=== PATIENT | male | born 1975 | race Caucasian/White ===

== ENCOUNTER 2020-10-07 16:52 | Inpatient (IN) ==
[2020-10-07] MEDS ORDERED: PIPERACILLIN/TAZOBACTAM 4.5 GM/120 ML BAG IV ONE (17:07)
[2020-10-07] MEDS ORDERED: PIPERACILL/TAZOBAC CONSULT ACTIVE PRN (17:07)
[2020-10-07] MEDS ORDERED: SODIUM CHLORIDE 0.9% 1000ML 1,000 ML IV ONE ×2 (17:07→19:31)
--- NOTE | 2020-10-07 17:16 | Emergency Department Note ---
Impression & Plan Pneumonia, Chest pain, Fever, Abnormal ECG ED Provider Note NAME: CAROL EDWARDS AGE: 45 SEX: M : 1975 ARRIVES VIA: Walk-In INFORMANT: Patient, ED PROVIDER(S): Az Sigala DO CHIEF COMPLAINT: Chest pain HPI: The patient is a 45-year-old male who presented to the emergency department for an evaluation of chest pain and shortness of breath. The patient was seen in our facility yesterday for similar complaints at that time he had a negative D-dimer and a negative COVID-19 swab. His EKG was abnormal so cardiology was consulted. The patient had an echocardiogram which did not show any acute disease. He was felt to be suffering from a possible tickborne illness. He was started on doxycycline after receiving IV Rocephin yesterday. The patient was doing well this morning. His significant other is a nurse and she noticed that throughout the day he started to become worse. He became very confused and started to have difficulty breathing. This is when she brought him back to the emergency department. At this point he does complain of significant shortness of breath and cough. He denies having any abdominal pain but does complain of nausea as well as chest pain. He denies having any lower extremity swelling which is worse than usual. The patient has been compliant with the outpatient medication regimen including the doxycycline. He states that he had a low-grade fever again. His significant other is very concerned because he also appeared somewhat confused. ROS: See above HPI for pertinent positives & negatives. A total of 10 systems reviewed and were otherwise negative. PAST MEDICAL HISTORY: See Below PAST SURGICAL HISTORY: See Below FAMILY HISTORY: See Below SOCIAL HISTORY: See Below HOME MEDICATIONS: See Below ALLERGIES: See Below VITALS: See Below PHYSICAL EXAMINATION: GENERAL: The patient is awake and alert. His affect is somewhat flat but he is appropriate. EYES: The conjunctivae are clear. The pupils are round and reactive. EARS, NOSE, MOUTH AND THROAT: The nose is without any evidence of any deformity. NECK: The neck is nontender and supple. RESPIRATORY: Diminished breath sounds are noted at the left base. There was tachypnea with mild conversational dyspnea appreciated. CARDIOVASCULAR: Regular rate and rhythm noted there no murmurs rubs or gallops normal S1 normal S2. GASTROINTESTINAL: The abdomen is soft. Abdomen is nontender. MUSCULOSKELETAL/EXTREMITIES: There is no evidence of gross deformity full range of motion is noted in the hips and shoulders. SKIN: There is no obvious evidence of any rash. There are no petechiae, pallor or cyanosis noted. No calf tenderness was elicited. NEUROLOGIC: Patient is awake alert and oriented x3. MEDICAL DECISION MAKING: The patient is a 45-year-old male who presented to the emergency department for an evaluation of fever and chest pain. The patient was seen yesterday with similar complaints. He did have an abnormal EKG and at that time had an echocardiogram. His changes on his EKG were not felt to be secondary to a cardiac source but he was scheduled for follow-up with cardiology for further evaluation as well as repeat studies. The patient was started on an oral antibiotic for presumed tickborne illness. At that time his chest x-ray showed no acute disease. He returns emergency department today with his significant other for an evaluation of worsening difficulty breathing chest pain and fever. The patient appears to have a very progressive pneumonia noted in the left lung field. This was confirmed via CT. He was also somewhat confused according to his significant other. He was treated with Tylenol and IV fluids. He was also given IV empiric antibiotics. He was reevaluated multiple times. I discussed the patient's laboratory and radiographic studies with him and his significant other. Ultimately I feel given the patient's presentation today he may require further inpatient management. This reason I will [facility] T[facility] Nursing notes reviewed. Prior medical records reviewed Vital Signs: reviewed and remarkable for tachycardia and fever. Differential diagnosis: Viral syndrome, otitis, pharyngitis, pneumonia, influenza, meningitis, urinary tract infection, sepsis, bacteremia, as well as other pathologies. ER treatment provided: See below Diagnostics interpreted by me: ECG: EKG was obtained in the emergency department. My interpretation is sinus tachycardia at 104 bpm. There is no ectopy. Inferior Q waves with lateral ST depressions and T wave versions were noted. This was compared to a tracing done on October 06, 2020. No significant changes were noted. Cardiac Monitoring: An order was placed for continuous cardiac monitoring. The monitor shows a rate of 110 bpm with sinus tachycardia rhythm. Laboratory studies: As stated above and show below. Imaging studies: See below Consultation(s): 194: I discussed this case with Dr. Coe who is on-call for the [facility] hospitalist group. Past Med/Surg History Medical History Encounter for pre-operative examination Fracture of distal fibula Left ureteral stone Multiple kidney stones Surgical History History of ankle surgery RIGHT ANKLE ORIF History of lithotripsy Family History Other Family history of breast cancer in mother Social History Smoking Status: Never smoker Second Hand Exposure: No; Hx Alcohol Use: No Hx Substance Use: No Preferred Language: Beninese Communication Ability: Effective Weaving Teacher Required: No Beliefs That Will Affect Care: None Current Living Situation: Family Feels Safe at Home: Yes Assistive Devices: Contacts Allergies Allergies Allergy/AdvReac Type Severity Reaction Status Date / Time No Known Allergies Allergy Verified 10/06/20 08:37 Home Meds Home Medications Medication Instructions Recorded Confirmed acetaminophen [Tylenol Extra 1,000 mg PO Q6H PRN 10/06/20 10/06/20 Strength] Previous Rx's Medication Instructions Recorded doxycycline hyclate 100 mg PO BID 14 Days #28 tab 10/06/20 Results & Data (ED) Vital Signs Vital Signs - 24 hr 10/07/20 16:58 10/07/20 17:11 10/07/20 17:15 Temperature Temperature Source Pulse Rate 102 H 104 H Pulse Rate [Finger] 103 H Pulse Rate from SpO2 Sensor 104 H Respiratory Rate 20 26 H Respiratory Effort / Characteristics Non-Labored Non-Labored Respiratory Depth Normal Normal Blood Pressure 139/94 140/97 Blood Pressure [Left Arm] 140/97 Blood Pressure Mean 109 116 Blood Pressure Mean [Left Arm] 111 Blood Pressure Position [Left Arm] Pulse Oximetry 92 92 96 Oxygen Delivery Method Room Air Room Air Nasal Cannula Oxygen Flow Rate 2 Sepsis Recent Fever Within 48 Hours No Sepsis New/Unexplained Change in Mental Status Yes Sepsis Action Taken by Nursing No Action Required 10/07/20 17:21 10/07/20 17:30 10/07/20 17:31 Temperature Temperature Source Pulse Rate 106 H 103 H 105 H Pulse Rate [Finger] 105 H Pulse Rate from SpO2 Sensor 107 H 105 H 103 H Respiratory Rate 18 27 H 20 Respiratory Effort / Characteristics Non-Labored Respiratory Depth Normal Blood Pressure 149/88 H Blood Pressure [Left Arm] 149/88 H Blood Pressure Mean 96 Blood Pressure Mean [Left Arm] 108 Blood Pressure Position [Left Arm] Pulse Oximetry 98 99 99 Oxygen Delivery Method Room Air Oxygen Flow Rate Sepsis Recent Fever Within 48 Hours Sepsis New/Unexplained Change in Mental Status Sepsis Action Taken by Nursing 10/07/20 17:40 10/07/20 17:45 10/07/20 17:50 Temperature Temperature Source Pulse Rate 107 H 105 H 108 H Pulse Rate [Finger] Pulse Rate from SpO2 Sensor 107 H 105 H 110 H Respiratory Rate 28 H 22 27 H Respiratory Effort / Characteristics Respiratory Depth Blood Pressure 142/91 H Blood Pressure [Left Arm] Blood Pressure Mean 106 Blood Pressure Mean [Left Arm] Blood Pressure Position [Left Arm] Pulse Oximetry 98 98 96 Oxygen Delivery Method Oxygen Flow Rate Sepsis Recent Fever Within 48 Hours Sepsis New/Unexplained Change in Mental Status Sepsis Action Taken by Nursing 10/07/20 17:55 10/07/20 17:56 10/07/20 18:00 Temperature Temperature Source Pulse Rate 105 H 102 H Pulse Rate [Finger] 111 H Pulse Rate from SpO2 Sensor 106 H 102 H Respiratory Rate 19 24 20 Respiratory Effort / Characteristics Non-Labored Respiratory Depth Normal Blood Pressure 136/99 148/93 H Blood Pressure [Left Arm] 136/99 Blood Pressure Mean 109 114 Blood Pressure Mean [Left Arm] 111 Blood Pressure Position [Left Arm] Pulse Oximetry 98 99 98 Oxygen Delivery Method Nasal Cannula Oxygen Flow Rate 2 Sepsis Recent Fever Within 48 Hours Sepsis New/Unexplained Change in Mental Status Sepsis Action Taken by Nursing 10/07/20 18:01 10/07/20 18:10 10/07/20 18:15 Temperature Temperature Source Pulse Rate 104 H 103 H 100 H Pulse Rate [Finger] Pulse Rate from SpO2 Sensor 103 H 103 H 101 H Respiratory Rate 26 H 19 17 Respiratory Effort / Characteristics Respiratory Depth Blood Pressure 142/92 H Blood Pressure [Left Arm] Blood Pressure Mean 117 Blood Pressure Mean [Left Arm] Blood Pressure Position [Left Arm] Pulse Oximetry 97 96 97 Oxygen Delivery Method Oxygen Flow Rate Sepsis Recent Fever Within 48 Hours Sepsis New/Unexplained Change in Mental Status Sepsis Action Taken by Nursing 10/07/20 18:20 10/07/20 18:30 10/07/20 18:32 Temperature Temperature Source Pulse Rate 106 H 103 H 105 H Pulse Rate [Finger] 105 H Pulse Rate from SpO2 Sensor 106 H 103 H 103 H Respiratory Rate 22 19 18 Respiratory Effort / Characteristics Respiratory Depth Blood Pressure 143/97 H 134/85 Blood Pressure [Left Arm] 142/92 H Blood Pressure Mean 119 112 Blood Pressure Mean [Left Arm] 108 Blood Pressure Position [Left Arm] Pulse Oximetry 98 95 97 Oxygen Delivery Method Nasal Cannula Oxygen Flow Rate 2 Sepsis Recent Fever Within 48 Hours Sepsis New/Unexplained Change in Mental Status Sepsis Action Taken by Nursing 10/07/20 18:40 10/07/20 18:45 10/07/20 18:50 Temperature Temperature Source Pulse Rate 106 H 112 H 107 H Pulse Rate [Finger] Pulse Rate from SpO2 Sensor 105 H 111 H 107 H Respiratory Rate 19 21 26 H Respiratory Effort / Characteristics Respiratory Depth Blood Pressure 131/91 Blood Pressure [Left Arm] Blood Pressure Mean 103 Blood Pressure Mean [Left Arm] Blood Pressure Position [Left Arm] Pulse Oximetry 97 97 94 Oxygen Delivery Method Oxygen Flow Rate Sepsis Recent Fever Within 48 Hours Sepsis New/Unexplained Change in Mental Status Sepsis Action Taken by Nursing 10/07/20 19:16 10/07/20 19:18 10/07/20 19:20 Temperature Temperature Source Pulse Rate 107 H 105 H 103 H Pulse Rate [Finger] Pulse Rate from SpO2 Sensor 108 H 105 H 102 H Respiratory Rate 20 16 23 Respiratory Effort / Characteristics Respiratory Depth Blood Pressure 114/74 Blood Pressure [Left Arm] Blood Pressure Mean 84 Blood Pressure Mean [Left Arm] Blood Pressure Position [Left Arm] Pulse Oximetry 91 95 96 Oxygen Delivery Method Oxygen Flow Rate Sepsis Recent Fever Within 48 Hours Sepsis New/Unexplained Change in Mental Status Sepsis Action Taken by Nursing 10/07/20 19:22 Temperature 39.0 C H Temperature Source Oral Pulse Rate 106 H Pulse Rate [Finger] 105 H Pulse Rate from SpO2 Sensor Respiratory Rate 23 Respiratory Effort / Characteristics Non-Labored Spontaneous Respiratory Depth Blood Pressure Blood Pressure [Left Arm] 114/74 Blood Pressure Mean Blood Pressure Mean [Left Arm] 87 Blood Pressure Position [Left Arm] Lying Pulse Oximetry 96 Oxygen Delivery Method Room Air Oxygen Flow Rate Sepsis Recent Fever Within 48 Hours Sepsis New/Unexplained Change in Mental Status Sepsis Action Taken by [facility] Medications Current Medication List: was personally reviewed by me Laboratory Data Attestation: I reviewed the patient's lab results. Result diagrams: 10/07/20 17:22 10/07/20 17:03 Lab Results 10/07/20 10/07/20 10/07/20 Range/Units 17:03 17:14 17:14 WBC (4.8-10.8) K/uL RBC (4.7-6.1) M/uL Hgb (14.0-18.0) g/dL Hct (42-52) % MCV (80-100) fL MCH (25-34) pg MCHC (32-36) g/dL RDW Std Deviation (36.4-46.3) fL RDW Coeff of Ezra (11.5-14.5) % Plt Count (130-400) K/uL MPV (7.4-10.4) fL Immature Gran % (Auto) % Neut % (Auto) % Lymph % (Auto) % [place] % (Auto) % Eos % (Auto) % Baso % (Auto) % Neut # (Auto) (1.4-6.5) K/uL Lymph # (Auto) (1.2-3.4) K/uL [place] # (Auto) (0.11-0.59) K/uL Eos # (Auto) (0-0.5) K/uL Baso # (Auto) (0-0.2) K/uL Immature Gran # (Auto) (0.00-0.02) K/uL ESR (0-14) mm/hr PT (9.0-12.0) Seconds INR (0.9-1.1) APTT (21.0-31.0) Seconds PTT Ratio D-Dimer (0-500) ug/L FEU VBG pH (7.36-7.41) VBG pCO2 (38-50) mmHg VBG pO2 mmHg VBG HCO3 mmol/L VBG O2 Saturation % VBG Base Excess mEq/L Barometric Pressure mm/Hg Sodium 138 (136-145) mmol/L Potassium 3.5 (3.5-5.1) mmol/L Chloride 106 (98-107) mmol/L Carbon Dioxide 24 (21-32) mmol/L Anion Gap 8.0 (3-11) BUN 12 (7-18) mg/dl Creatinine 0.93 (0.6-1.4) mg/dl Est Cr Clr Drug Dosing 128.9 ml/min Est GFR ( Amer) 115.3 Est GFR (Non-Af Amer) 99.5 BUN/Creatinine Ratio 12.6 (10-20) Glucose 92 (70-99) mg/dl Lactate (0.4-2.0) mmol/L Calcium 8.8 (8.5-10.1) mg/dl Magnesium 1.8 (1.8-2.4) mg/dl Total Bilirubin 0.5 (0.2-1) mg/dl AST 31 (15-37) U/L ALT 35 (12-78) U/L Alkaline Phosphatase 50 (45-117) U/L Total Creatine Kinase 88 (39-308) U/L CK-MB (CK-2) < 1.0 (0.5-3.6) ng/ml CK/CKMB % Calc TNP Troponin I < 0.015 (0-0.045) ng/ml C-Reactive Protein 8.53 H (0-0.29) mg/dl Total Protein 7.5 (6.4-8.2) gm/dl Albumin 3.3 L (3.4-5.0) gm/dl Globulin 4.2 H (2.5-4.0) gm/dl Albumin/Globulin Ratio 0.8 L (0.9-2) Procalcitonin (0-0.5) ng/ml COVID-19 Eval Order CovFluRsv at [facility] COVID-19 PCR NEGATIVE (Negative) Influenza Type A (PCR) Negative (Neg) Influenza Type B (PCR) Negative (Neg) RSV (RT-PCR) Negative (Neg) 10/07/20 10/07/20 10/07/20 Range/Units 17:22 17:22 17:22 WBC 2.61 L (4.8-10.8) K/uL RBC 4.72 (4.7-6.1) M/uL Hgb 14.8 (14.0-18.0) g/dL Hct 42.8 (42-52) % MCV 90.7 (80-100) fL MCH 31.4 (25-34) pg MCHC 34.6 (32-36) g/dL RDW Std Deviation 41.8 (36.4-46.3) fL RDW Coeff of Ezra 12.5 (11.5-14.5) % Plt Count 165 (130-400) K/uL MPV 10.8 H (7.4-10.4) fL Immature Gran % (Auto) 0.0 % Neut % (Auto) 70.1 % Lymph % (Auto) 23.0 % [place] % (Auto) 6.9 % Eos % (Auto) 0.0 % Baso % (Auto) 0.0 % Neut # (Auto) 1.83 (1.4-6.5) K/uL Lymph # (Auto) 0.60 L (1.2-3.4) K/uL [place] # (Auto) 0.18 (0.11-0.59) K/uL Eos # (Auto) 0.00 (0-0.5) K/uL Baso # (Auto) 0.00 (0-0.2) K/uL Immature Gran # (Auto) 0.00 (0.00-0.02) K/uL ESR (0-14) mm/hr PT 11.6 (9.0-12.0) Seconds INR 1.1 (0.9-1.1) APTT 33.6 H (21.0-31.0) Seconds PTT Ratio 1.2 D-Dimer 440 (0-500) ug/L FEU VBG pH (7.36-7.41) VBG pCO2 (38-50) mmHg VBG pO2 mmHg VBG HCO3 mmol/L VBG O2 Saturation % VBG Base Excess mEq/L Barometric Pressure mm/Hg Sodium (136-145) mmol/L Potassium (3.5-5.1) mmol/L Chloride (98-107) mmol/L Carbon Dioxide (21-32) mmol/L Anion Gap (3-11) BUN (7-18) mg/dl Creatinine (0.6-1.4) mg/dl Est Cr Clr Drug Dosing ml/min Est GFR ( Amer) Est GFR (Non-Af Amer) BUN/Creatinine Ratio (10-20) Glucose (70-99) mg/dl Lactate 1.2 (0.4-2.0) mmol/L Calcium (8.5-10.1) mg/dl Magnesium (1.8-2.4) mg/dl Total Bilirubin (0.2-1) mg/dl AST (15-37) U/L ALT (12-78) U/L Alkaline Phosphatase (45-117) U/L Total Creatine Kinase (39-308) U/L CK-MB (CK-2) (0.5-3.6) ng/ml CK/CKMB % Calc Troponin I (0-0.045) ng/ml C-Reactive Protein (0-0.29) mg/dl Total Protein (6.4-8.2) gm/dl Albumin (3.4-5.0) gm/dl Globulin (2.5-4.0) gm/dl Albumin/Globulin Ratio (0.9-2) Procalcitonin (0-0.5) ng/ml COVID-19 Eval Order COVID-19 PCR (Negative) Influenza Type A (PCR) (Neg) Influenza Type B (PCR) (Neg) RSV (RT-PCR) (Neg) 10/07/20 10/07/20 10/07/20 Range/Units 17:22 17:22 17:22 WBC (4.8-10.8) K/uL RBC (4.7-6.1) M/uL Hgb (14.0-18.0) g/dL Hct (42-52) % MCV (80-100) fL MCH (25-34) pg MCHC (32-36) g/dL RDW Std Deviation (36.4-46.3) fL RDW Coeff of Ezra (11.5-14.5) % Plt Count (130-400) K/uL MPV (7.4-10.4) fL Immature Gran % (Auto) % Neut % (Auto) % Lymph % (Auto) % [place] % (Auto) % Eos % (Auto) % Baso % (Auto) % Neut # (Auto) (1.4-6.5) K/uL Lymph # (Auto) (1.2-3.4) K/uL [place] # (Auto) (0.11-0.59) K/uL Eos # (Auto) (0-0.5) K/uL Baso # (Auto) (0-0.2) K/uL Immature Gran # (Auto) (0.00-0.02) K/uL ESR 27 H (0-14) mm/hr PT (9.0-12.0) Seconds INR (0.9-1.1) APTT (21.0-31.0) Seconds PTT Ratio D-Dimer (0-500) ug/L FEU VBG pH 7.45 H (7.36-7.41) VBG pCO2 35 L (38-50) mmHg VBG pO2 30 mmHg VBG HCO3 23 mmol/L VBG O2 Saturation < 60.0 % VBG Base Excess -0.2 mEq/L Barometric Pressure 739.2 mm/Hg Sodium (136-145) mmol/L Potassium (3.5-5.1) mmol/L Chloride (98-107) mmol/L Carbon Dioxide (21-32) mmol/L Anion Gap (3-11) BUN (7-18) mg/dl Creatinine (0.6-1.4) mg/dl Est Cr Clr Drug Dosing ml/min Est GFR ( Amer) Est GFR (Non-Af Amer) BUN/Creatinine Ratio (10-20) Glucose (70-99) mg/dl Lactate (0.4-2.0) mmol/L Calcium (8.5-10.1) mg/dl Magnesium (1.8-2.4) mg/dl Total Bilirubin (0.2-1) mg/dl AST (15-37) U/L ALT (12-78) U/L Alkaline Phosphatase (45-117) U/L Total Creatine Kinase (39-308) U/L CK-MB (CK-2) (0.5-3.6) ng/ml CK/CKMB % Calc Troponin I (0-0.045) ng/ml C-Reactive Protein (0-0.29) mg/dl Total Protein (6.4-8.2) gm/dl Albumin (3.4-5.0) gm/dl Globulin (2.5-4.0) gm/dl Albumin/Globulin Ratio (0.9-2) Procalcitonin 0.21 (0-0.5) ng/ml COVID-19 Eval Order COVID-19 PCR (Negative) Influenza Type A (PCR) (Neg) Influenza Type B (PCR) (Neg) RSV (RT-PCR) (Neg) Administered Medications Discontinued Medications Acetaminophen (Acetaminophen 500 Mg Tab) 1,000 mg PO NOW STA Stop: 10/07/20 18:57 Last Admin: 10/07/20 19:19 Dose: 1,000 mg Documented by: [id number] Sodium Chloride (Nss 1000ml) 1,000 mls @ 999 mls/hr IV .Q1H1M ONE Stop: 10/07/20 18:07 Last Infusion: 10/07/20 18:28 Dose: 0 mls/hr Documented by: [id number] Admin: 10/07/20 17:21 Dose: 999 mls/hr Documented by: [id number] Piperacillin Sod/Tazobactam Sod (Zosyn) 4.5 gm in 120 mls @ 240 mls/hr IV NOW ONE Stop: 10/07/20 17:36 Last Infusion: 10/07/20 17:50 Dose: 0 mls/hr Documented by: [id number] Admin: 10/07/20 17:20 Dose: 240 mls/hr Documented by: [id number] Ioversol (Optiray 320 125ml) 117 ml IV ONCE ONE Stop: 10/07/20 19:06 Last Admin: 10/07/20 19:06 Dose: 117 ml Documented by: [id number] Ondansetron HCl (Ondansetron Inj 2 Mg/Ml 2 Ml Vial) 4 mg IV NOW STA Stop: 10/07/20 18:57 Last Admin: 10/07/20 19:19 Dose: 4 mg Documented by: [id number] Imaging Data Radiologist's Impression: Patient: CAROL EDWARDS Admit Date: 10/07/20 MR#: [id number] Address1: [address] [place] [address] Acct ID:[id number] Address2: Date: 1975 [facility] Zip: [place] [address] Age: 45 Location: ED Sex: M Room/Bed: Att Phy: Diagnosis: CHEST PAIN, CARDIAC SYMPTOMS Alcira Phy: Ruiz Monreal DO Service Date: 10/07/20 [facility] Phy: Interpreting Phy: Philippe Ugarte MD Admit Phy: Ordering Phy: Az Sigala DO cc: ~ CT SCAN OF THE BRAIN WITHOUT IV CONTRAST CLINICAL HISTORY: Change in mental status. COMPARISON STUDY: No priors. TECHNIQUE: Unenhanced axial CT scan of the brain is performed from the vertex to the skull base. A dose lowering technique was utilized adhering to the principles of ALARA. FINDINGS: Brain parenchyma: The brain parenchyma is normal in appearance. There is no hem orrhage, mass effect, or evidence of acute territorial ischemia by CT criteria. Pham-white matter differentiation is preserved. No extra-axial fluid collection is seen. Ventricles, sulci, cisterns: Normal in configuration. Megacisterna magna is incidentally noted. Intracranial vasculature: Mild mucosal thickening is seen in the left maxillary antrum. Trace mucosal thickening is noted in the left frontal sinus. The remaining visualized intracranial vasculature at the skull base is normal in [place]id [place]. Calvarium: Unremarkable. Sinuses and mastoids: The visualized paranasal sinuses are clear. The mastoid air cells are well pneumatized. Orbits: The bony orbits are grossly intact. IMPRESSION: No acute intracranial abnormality. ACT 112: Negative or not required by law. Electronically signed by: Philippe Ugarte M.D. 10/07/2020 7:18 PM Dictated: 10/07/201915 Transcribed: 10/07/201915 Patient: CAROL EDWARDS Admit Date: 10/07/20 MR#: [id number] Address1: [address] [place] [address] Acct ID:[id number] Address2: Date: 1975 [facility] Zip: [place] [address] Age: 45 Location: ED Sex: M Room/Bed: Att Phy: Diagnosis: CHEST PAIN, CARDIAC SYMPTOMS Alcira Phy: Ruiz Monreal DO Service Date: 10/07/20 [facility] Phy: Interpreting Phy: Philippe Ugarte MD Admit Phy: Ordering Phy: Az Sigala DO cc: ~ CT ANGIOGRAM OF THE CHEST CLINICAL HISTORY: Dyspnea. COMPARISON STUDY: Chest x-ray dated 10/07/2020. TECHNIQUE: Following the IV administration of 117 cc of Optiray 320, CT angiogram of the chest was performed from the upper abdomen to the thoracic inlet utilizing the pulmonary embolus protocol. Images are reviewed in the axial, sagittal, and coronal planes. 3-D MIPS images are created and assessed. IV contrast was administered without complication. A dose lowering technique was utilized adhering to the principles of ALARA. CT DOSE: 1359.71 mGy.cm FINDINGS: Thyroid: Imaged portions of the thyroid gland are normal in size and attenuation. Thoracic aorta: The thoracic aorta is normal in caliber and demonstrates standard 3-vessel arch anatomy. No dissection is seen. Pulmonary vasculature: The pulmonary trunk is normal in caliber. There are no f illing defects identified in main, lobar, or proximal segmental pulmonary branches to suggest pulmonary embolus. Evaluation of the peripheral branches is significantly compromised by motion artifact. Heart: The heart is top normal in size/borderline enlarged and without pericardial effusion. Lungs and pleural spaces: Evaluation of the lung parenchyma is degraded by motion artifact. Dense airspace consolidation is seen throughout the left lower lobe. There is trace left pleural effusion. The trachea and central airways are clear. There are numerous calcified granulomas seen throughout both lungs. Mediastinum: There are numerous mildly enlarged mediastinal lymph nodes. AP window nodes measure up to 11 mm short axis. A precarinal node measures 11 mm in short axis. Debbie: There are mildly enlarged left hilar nodes which measure up to 9 mm in short axis. Axillae: There is no axillary lymphadenopathy. Upper abdomen: There is a small hiatal hernia. The liver is steatotic. The spleen is enlarged measuring 14.9 cm in length. Skeletal structures: No lytic or blastic bony lesions are seen. IMPRESSION: 1. Motion compromised examination. 2. There is no evidence of central pulmonary embolus in the main, lobar, or proximal segmental pulmonary arteries. 3. Dense airspace consolidation is seen throughout the left lower lobe. This is typical for pneumonia and radiographic follow-up to resolution is recommended. Follow-up examinations should include both PA and lateral views. 3. Trace left pleural effusion. 4. Hepatic steatosis. 5. Mild splenomegaly. 6. Mildly enlarged mediastinal and left hilar lymph nodes are likely on a reactive basis. ACT 112: Negative or not required by law. Electronically signed by: Philippe Ugarte M.D. 10/07/2020 7:26 PM Dictated: 10/07/201919 Transcribed: 10/07/201919 Patient: CAROL EDWARDS Admit Date: 10/07/20 MR#: [id number] Address1: [address] [facility] Acct ID:[id number] Address2: Date: 1975 [facility] Zip: [place] [address] Age: 45 Location: ED Sex: M Room/Bed: Att Phy: Diagnosis: CHEST PAIN, CARDIAC SYMPTOMS Alcira Phy: Ruiz Monreal DO Service Date: 10/07/20 Fam Phy: Interpreting Phy: Philippe Ugarte MD Admit Phy: Ordering Phy: Az Sigala DO cc: ~ SINGLE VIEW CHEST CLINICAL HISTORY: Sepsis. FINDINGS: An AP, portable, upright chest radiograph is compared to study dated 10/06/2020. The cardiomediastinal silhouette is unremarkable. Question subtle bilateral interstitial airspace opacities. No lobar consolidation or large pleural effusion is identified. No pneumothorax is seen. The bony thorax is grossly intact. IMPRESSION: Question subtle bilateral interstitial airspace opacities which are new from yesterday. Correlate clinically for evidence of a mild infectious/inflammatory pneumonitis. ACT 112: Negative or not required by law. Electronically signed by: Philippe Ugarte M.D. 10/07/2020 6:21 PM Dictated: 10/07/201733 Transcribed: 10/07/201736 Blood Pressure Blood Pressure Findings: Normal blood pressure Discharge Plan Visit Data Chief Complaint: Cardiac Assessment Stated Complaint: CHEST PAIN, CARDIAC SYMPTOMS ED Provider: Az Sigala Discharge Problem: Pneumonia, Chest pain, Fever, Abnormal ECG Patient Disposition: Being Evaluated by Hospitalist Condition: Good Forms Stand Alone Forms: [facility] [employer] Prescriptions Prescriptions: No Action acetaminophen [Tylenol Extra Strength] 500 mg Tablet 1,000 mg PO Q6H PRN (Reason: Pain) RF: 0 doxycycline hyclate 100 mg tablet 100 mg PO BID 14 Days Qty: 28 RF: 0 Referrals Referrals: Ruiz Monreal DO [Primary Care Provider] - Discharge Problem: Pneumonia Qualifiers: Pneumonia type: due to unspecified organism Laterality: left Lung location: uns pecified part of lung Qualified Code(s): J18.9 - Pneumonia, unspecified organism Chest pain Qualifiers: Chest pain type: unspecified Qualified Code(s): R07.9 - Chest pain, unspecified Fever Qualifiers: Fever type: unspecified Qualified Code(s): R50.9 - Fever, unspecified
[2020-10-07 17:29] LABS: Hematocrit (blood only) 42.8 % (42-52); Hemoglobin 14.8 g/dL (14.0-18.0); Mean Corpuscular Hemoglobin 31.4 pg (25-34); Mean Corpuscular Hgb Conc 34.6 g/dL (32-36); Mean Corpuscular Volume 90.7 fL (80-100); Mean Platelet Volume 10.8 fL (7.4-10.4); Monocytes # (auto) 0.18 K/uL (0.11-0.59); Monocytes % (auto) 6.9 %; Neutrophils # (auto) 1.83 K/uL (1.4-6.5); Neutrophils % (auto) 70.1 %; Platelet Count 165 K/uL (130-400); RDW Coefficient of Variation 12.5 % (11.5-14.5); RDW Standard Deviation 41.8 fL (36.4-46.3); Red Blood Count 4.72 M/uL (4.7-6.1); White Blood Count 2.61 K/uL (4.8-10.8)
[2020-10-07 17:38] LABS: Base Excess VBG -0.2 mEq/L; HCO3 VBG 23 mmol/L; Oxygen Saturation VBG < 60.0 %; PCO2 VBG 35 mmHg (38-50); PO2 VBG 30 mmHg; pH VBG 7.45 (7.36-7.41)
[2020-10-07 17:41] LABS: D Dimer 440 ug/L FEU (0-500); INR 1.1 (0.9-1.1); Partial Thromboplastin Ratio 1.2; Partial Thromboplastin Time 33.6 Seconds (21.0-31.0); Prothrombin Time 11.6 Seconds (9.0-12.0)
[2020-10-07 17:46] LABS: Alanine Aminotransferase 35 U/L (12-78); Albumin Level 3.3 gm/dl (3.4-5.0); Aspartate Aminotransferase 31 U/L (15-37); BUN Creatinine Ratio 12.6 (10-20); Blood Urea Nitrogen 12 mg/dl (7-18); C Reactive Protein 8.53 mg/dl (0-0.29); Calcium 8.8 mg/dl (8.5-10.1); Carbon Dioxide 24 mmol/L (21-32); Chloride 106 mmol/L (98-107); Creatinine Clr Calc Pharmacy 128.9 ml/min; Est GFR (African American) 115.3; Est GFR (Non-African American) 99.5; Glucose 92 mg/dl (70-99); Magnesium 1.8 mg/dl (1.8-2.4); Potassium 3.5 mmol/L (3.5-5.1); Sodium 138 mmol/L (136-145)
[2020-10-07 17:49] LABS: Albumin Globulin Ratio 0.8 (0.9-2); Alkaline Phosphatase 50 U/L (45-117); Bilirubin,Total 0.5 mg/dl (0.2-1); Creatine Kinase 88 U/L (39-308); Creatine Kinase MB < 1.0 ng/ml (0.5-3.6); Globulin 4.2 gm/dl (2.5-4.0); Total Protein 7.5 gm/dl (6.4-8.2); Troponin I < 0.015 ng/ml (0-0.045)
[2020-10-07 18:02] LABS: Influenza A virus by PCR Negative (Neg); Influenza B virus by PCR Negative (Neg); RSV by PCR Negative (Neg); SARS CoV2 RNA(COVID-19) InHosp NEGATIVE (Negative)
--- NOTE | 2020-10-07 18:22 | XRay Report ---
SINGLE VIEW CHEST CLINICAL HISTORY: Sepsis. FINDINGS: An AP, portable, upright chest radiograph is compared to study dated 10/06/2020. The cardio mediastinal silhouette is unremarkable. Question subtle bilateral interstitial airspace opacities. No lobar consolidation or large pleural effusion is identified. No pneumothorax is seen. The bony thora x is grossly intact. IMPRESSION: Question subtle bilateral interstitial airspace opacities which are new from yesterday. C orrelate clinically for evidence of a mild infectious/inflammatory pneumonitis. ACT 112: Negative or not required by law. Electronically signed by: Philippe Ugarte M.D. 10/07/2020 6:21 PM
[2020-10-07] MEDS ORDERED: ACETAMINOPHEN 500 MG TAB PO STA (18:56)
[2020-10-07] MEDS ORDERED: ONDANSETRON INJ 2 MG/ML 2 ML VIAL IV STA (18:56)
[2020-10-07] MEDS ORDERED: OPTIRAY 320 125ml IV ONE (19:05)
--- NOTE | 2020-10-07 19:19 | CT Scan Report ---
CT SCAN OF THE BRAIN WITHOUT IV CONTRAST CLINICAL HISTORY: Change in mental status. COMPARISON STUDY: No priors. TECHNIQUE: Unenhanced axial CT scan of the brain is performed from the vertex to the skull base. A d ose lowering technique was utilized adhering to the principles of ALARA. FINDINGS: Brain parenchyma: The brain parenchyma is normal in appearance. There is no hemorrhage, mass effect, or evidence of acute territorial ischemia by CT criteria. Pham-white matter differentiation is preser susi. No extra-axial fluid collection is seen. Ventricles, sulci, cisterns: Normal in configuration. Megacisterna magna is incidentally noted. Intracranial vasculature: Mild mucosal thickening is seen in the left maxillary antrum. Trace mucosal thickening is noted in the left frontal sinus. The remaining visualized intracranial vasculature at the skull base is normal in appearance. Calvarium: Unremarkable. Sinuses and mastoids: The visualized paranasal sinuses are clear. The mastoid air cells are well pneu matized. Orbits: The bony orbits are grossly intact. IMPRESSION: No acute intracranial abnormality. ACT 112: Negative or not required by law. Electronically signed by: Philippe Ugarte M.D. 10/07/2020 7:18 PM
--- NOTE | 2020-10-07 19:28 | CT Scan Report ---
CT ANGIOGRAM OF THE CHEST CLINICAL HISTORY: Dyspnea. COMPARISON STUDY: Chest x-ray dated 10/07/2020. TECHNIQUE: Following the IV administration of 117 cc of Optiray 320, CT angiogram of the chest was pe rformed from the upper abdomen to the thoracic inlet utilizing the pulmonary embolus protocol. Images are reviewed in the axial, sagittal, and coronal planes. 3-D MIPS images are created and assessed. I V contrast was administered without complication. A dose lowering technique was utilized adhering to the principles of ALARA. CT DOSE: 1359.71 mGy.cm FINDINGS: Thyroid: Imaged portions of the thyroid gland are normal in size and attenuation. Thoracic aorta: The thoracic aorta is normal in caliber and demonstrates standard 3-vessel arch anato my. No dissection is seen. Pulmonary vasculature: The pulmonary trunk is normal in caliber. There are no filling defects identif ied in main, lobar, or proximal segmental pulmonary branches to suggest pulmonary embolus. Evaluation of the peripheral branches is significantly compromised by motion artifact. Heart: The heart is top normal in size/borderline enlarged and without pericardial effusion. Lungs and pleural spaces: Evaluation of the lung parenchyma is degraded by motion artifact. Dense air space consolidation is seen throughout the left lower lobe. There is trace left pleural effusion. The trachea and central airways are clear. There are numerous calcified granulomas seen throughout both lungs. Mediastinum: There are numerous mildly enlarged mediastinal lymph nodes. AP window nodes measure up t o 11 mm short axis. A precarinal node measures 11 mm in short axis. Debbie: There are mildly enlarged left hilar nodes which measure up to 9 mm in short axis. Axillae: There is no axillary lymphadenopathy. Upper abdomen: There is a small hiatal hernia. The liver is steatotic. The spleen is enlarged measuri ng 14.9 cm in length. Skeletal structures: No lytic or blastic bony lesions are seen. IMPRESSION: 1. Motion compromised examination. 2. There is no evidence of central pulmonary embolus in the main, lobar, or proximal segmental pulmon mireille arteries. 3. Dense airspace consolidation is seen throughout the left lower lobe. This is typical for pneumonia and radiographic follow-up to resolution is recommended. Follow-up examinations should include both PA and lateral views. 3. Trace left pleural effusion. 4. Hepatic steatosis. 5. Mild splenomegaly. 6. Mildly enlarged mediastinal and left hilar lymph nodes are likely on a reactive basis. ACT 112: Negative or not required by law. Electronically signed by: Philippe Ugarte M.D. 10/07/2020 7:26 PM
[2020-10-07] MEDS ORDERED: XOPENEX/ATROVENT 1.25mg/0.5MG NEB COMBO NEB STA (19:45)
[2020-10-07] MEDS ORDERED: MAGNESIUM SULFATE / D5W 1 GM/100 ML BAG IV ONE (20:00)
[2020-10-07] MEDS ORDERED: IPRATROPIUM BROMIDE NEB SOLN 0.02% 2.5 ML VIAL INH STA (20:04)
[2020-10-07] MEDS ORDERED: LEVALBUTEROL 1.25MG/0.5ML NEB INH STA (20:04)
[2020-10-07] MEDS ORDERED: KETOROLAC TROMETHAMINE 15 MG/ML VIAL IV ONE (21:02)
[2020-10-07 22:03] LABS: Appearance Urine Clear (Clear); Bacteria Urine Automated Negative (Negative); Bilirubin Urine Negative (Negative); Blood Urine Negative (Negative); Color Urine Yellow; Glucose Urine UA Negative (Negative); Ketones Urine 4+ (Negative); Leukocyte Esterase Urine Negative (Negative); Nitrite Urine Negative (Negative); Protein Urine 1+ (Negative); RBC Urine Automated 0-4 /hpf (0-4); Specific Gravity Urine > 1.045 (1.000-1.030); Urobilinogen Urine Negative (Negative)
--- NOTE | 2020-10-07 22:03 | History & Physical Report ---
Date of Service October 07, 2020 Assessment & Plan (1) Sepsis: Secondary to community-acquired pneumonia Ongoing doxycycline Rx for presumptive tickborne illness Multiple sclerosis, stable on Rebif hepatic steatosis, splenomegaly (present on outpatient abdominal ultrasound, possible NAFLD as per outpatient GI note from 2007) Medical telemetry Cultures, add Ceftriaxone to Doxycycline DVT prophylaxis. Lovenox subcu Full code Patient's requesting updates from providers. Ms. Alessandra Kilpatrick, contact #[phone]. Text document was generated using [employer] voice recognition software. It may contain grammatical or spelling errors. Kindly contact undersigned for clarification of any documentation item in question. History of Present Illness Chief Complaint: chest pain, shortness of breath Primary Care Provider: Dr. Santo History obtained from patient, family, and records. Medical history significant for multiple sclerosis on Rebif therapy. 1 week history of fever, fatigue, headache and body ache symptoms. 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 Achy chest pain about 3 days ago. Poor appetite. Patient worried about tick exposure due to hunting activities although no recollection of recent tick bites. Patient patient consulted ER yesterday. Normal chest x-ray and ST abnormalities on EKG noted. COVID-19 and Lyme screen testing negative. Normal echocardiogram done at the ER. Patient also evaluated by cardiology at the ER. Patient discharged on doxycycline course for presumptive tickborne illness. This afternoon, patient noted junky cough symptoms followed by worsening pleuritic left-sided chest pain and shortness of breath, nausea, emesis, fever, chills. Patient a little confused at home as per . No diarrhea. At the ER, patient received Zosyn for sepsis. 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 Allergies Allergy/AdvReac Type Severity Reaction Status Date / Time No Known Allergies Allergy Verified 10/07/20 20:02 Home Medications Medication Instructions Recorded Confirmed Type acetaminophen [Tylenol Extra 1,000 mg PO Q6H PRN 10/06/20 10/07/20 History Strength] doxycycline hyclate 100 mg PO BID 14 Days #28 tab 10/06/20 10/07/20 Rx aspirin [Aspirin Low Dose] 81 mg PO QAM 10/07/20 10/07/20 History interferon beta-1a (albumin) 0.5 ml SUBCUT 3XWK 10/07/20 10/07/20 History [Rebif (with albumin)] Past Med/Surg History Medical History Encounter for pre-operative examination Fracture of distal fibula Left ureteral stone Multiple kidney stones Surgical History History of ankle surgery RIGHT ANKLE ORIF History of lithotripsy Family History Other Family history of breast cancer in mother Social History Smoking Status: Never smoker Second Hand Exposure: No; Hx Alcohol Use: No Hx Substance Use: No Preferred Language: Luxembourger Communication Ability: Effective Bisque Grader Required: No Beliefs That Will Affect Care: None Current Living Situation: Spouse and Family Other Information That Helps Us Care for You: No Feels Safe at Home: Yes Safety Concerns: Feels Safe At This Time Assistive Devices: None Review of Systems Review of Systems: As per HPI, all 10 systems reviewed, all other ROS negative Physical Exam Physical Exam: GENERAL: Slightly uncomfortable, no respiratory distress SKIN: Normal color, warm HEENT: [place] palpebral conjunctivae, no ptosis, dry buccal mucosa NECK : Supple, no tenderness CHEST : Crackles on the left lower lung field, no tenderness HEART : Tachycardic, no obvious murmurs ABDOMEN: Some distention, nontender EXTREMITIES : No LE swelling/tenderness, no other conspicuous deformities noted NEUROLOGIC : Coherent, no facial asymmetry, no other gross focality Results & Data Results & Data ([facility]) Vital Signs (Past 12 Hours) Vital Signs Temp Pulse Pulse Resp BP BP Pulse Ox 10/07/20 21:30 105 H 14 129/81 92 10/07/20 21:00 38.8 C H 108 H 18 135/76 92 10/07/20 20:16 100 H 18 92 10/07/20 20:11 105 H 18 153/97 H 91 10/07/20 19:22 39.0 C H 106 H 105 H 23 114/74 96 10/07/20 19:20 103 H 23 96 10/07/20 19:18 105 H 16 114/74 95 10/07/20 19:16 107 H 20 91 10/07/20 18:50 107 H 26 H 94 10/07/20 18:45 112 H 21 131/91 97 10/07/20 18:40 106 H 19 97 10/07/20 18:32 105 H 18 134/85 97 10/07/20 18:30 103 H 19 143/97 H 95 10/07/20 18:20 106 H 105 H 22 142/92 H 98 10/07/20 18:15 100 H 17 142/92 H 97 10/07/20 18:10 103 H 19 96 10/07/20 18:01 104 H 26 H 97 10/07/20 18:00 102 H 20 148/93 H 98 10/07/20 17:56 111 H 24 136/99 99 10/07/20 17:55 105 H 19 136/99 98 10/07/20 17:50 108 H 27 H 96 10/07/20 17:45 105 H 22 142/91 H 98 10/07/20 17:40 107 H 28 H 98 10/07/20 17:31 105 H 105 H 20 149/88 H 99 10/07/20 17:30 103 H 27 H 149/88 H 99 10/07/20 17:21 106 H 18 98 10/07/20 17:15 104 H 103 H 26 H 140/97 140/97 96 10/07/20 17:11 92 10/07/20 16:58 102 H 20 139/94 92 Laboratory Results Laboratory Results WBC 2.61 K/uL (4.8-10.8) L 10/07/20 17:22 RBC 4.72 M/uL (4.7-6.1) 10/07/20 17:22 Hgb 14.8 g/dL (14.0-18.0) 10/07/20 17:22 Hct 42.8 % (42-52) 10/07/20 17:22 MCV 90.7 fL (80-100) 10/07/20 17:22 MCH 31.4 pg (25-34) 10/07/20 17:22 MCHC 34.6 g/dL (32-36) 10/07/20 17:22 RDW Std Deviation 41.8 fL (36.4-46.3) 10/07/20 17:22 RDW Coeff of Ezra 12.5 % (11.5-14.5) 10/07/20 17: Plt Count 165 K/uL (130-400) 10/07/20 17:22 MPV 10.8 fL (7.4-10.4) H 10/07/20 17:22 Immature Gran % (Auto) 0.0 % 10/07/20 17: Neut % (Auto) 70.1 % 10/07/20 17:22 Lymph % (Auto) 23.0 % 10/07/20 17:22 [place] % (Auto) 6.9 % 10/07/20 17: Eos % (Auto) 0.0 % 10/07/20 17: Baso % (Auto) 0.0 % 10/07/20 17: Neut # (Auto) 1.83 K/uL (1.4-6.5) 10/07/20 17:22 Lymph # (Auto) 0.60 K/uL (1.2-3.4) L 10/07/20 17:22 [place] # (Auto) 0.18 K/uL (0.11-0.59) 10/07/20 17:22 Eos # (Auto) 0.00 K/uL (0-0.5) 10/07/20 17:22 Baso # (Auto) 0.00 K/uL (0-0.2) 10/07/20 17: Immature Gran # (Auto) 0.00 K/uL (0.00-0.02) 10/07/20 17: ESR 27 mm/hr (0-14) H 10/07/20 17:22 PT 11.6 Seconds (9.0-12.0) 10/07/20 17: INR 1.1 (0.9-1.1) 10/07/20 17: APTT 33.6 Seconds (21.0-31.0) H 10/07/20 17:22 PTT Ratio 1.2 10/07/20 17: D-Dimer 440 ug/L FEU (0-500) 10/07/20 17: VBG pH 7.45 (7.36-7.41) H 10/07/20 17:22 VBG pCO2 35 mmHg (38-50) L 10/07/20 17:22 VBG pO2 30 mmHg 10/07/20 17:22 VBG HCO3 23 mmol/L 10/07/20 17:22 VBG O2 Saturation < 60.0 % 10/07/20 17:22 VBG Base Excess -0.2 mEq/L 10/07/20 17:22 Barometric Pressure 739.2 mm/Hg 10/07/20 17:22 Sodium 138 mmol/L (136-145) 10/07/20 17:03 Potassium 3.5 mmol/L (3.5-5.1) 10/07/20 17:03 Chloride 106 mmol/L (98-107) 10/07/20 17:03 Carbon Dioxide 24 mmol/L (21-32) 10/07/20 17:03 Anion Gap 8.0 (3-11) 10/07/20 17:03 BUN 12 mg/dl (7-18) 10/07/20 17:03 Creatinine 0.93 mg/dl (0.6-1.4) 10/07/20 17:03 Est Cr Clr Drug Dosing 128.9 ml/min 10/07/20 17:03 Est GFR ( Amer) 115.3 10/07/20 17:03 Est GFR (Non-Af Amer) 99.5 10/07/20 17:03 BUN/Creatinine Ratio 12.6 (10-20) 10/07/20 17:03 Glucose 92 mg/dl (70-99) 10/07/20 17:03 Lactate 1.2 mmol/L (0.4-2.0) 10/07/20 17:22 Calcium 8.8 mg/dl (8.5-10.1) 10/07/20 17:03 Magnesium 1.8 mg/dl (1.8-2.4) 10/07/20 17:03 Total Bilirubin 0.5 mg/dl (0.2-1) 10/07/20 17:03 AST 31 U/L (15-37) 10/07/20 17:03 ALT 35 U/L (12-78) 10/07/20 17:03 Alkaline Phosphatase 50 U/L (45-117) 10/07/20 17:03 Total Creatine Kinase 88 U/L (39-308) 10/07/20 17:03 CK-MB (CK-2) < 1.0 ng/ml (0.5-3.6) 10/07/20 17:03 CK/CKMB % Calc TNP 10/07/20 17:03 Troponin I < 0.015 ng/ml (0-0.045) 10/07/20 17:03 C-Reactive Protein 8.53 mg/dl (0-0.29) H 10/07/20 17:03 Total Protein 7.5 gm/dl (6.4-8.2) 10/07/20 17:03 Albumin 3.3 gm/dl (3.4-5.0) L 10/07/20 17:03 Globulin 4.2 gm/dl (2.5-4.0) H 10/07/20 17:03 Albumin/Globulin Ratio 0.8 (0.9-2) L 10/07/20 17:03 Procalcitonin 0.21 ng/ml (0-0.5) 10/07/20 17:22 Nasal Screen MRSA (PCR) Negative (Negative) 10/07/20 20:10 COVID-19 Eval Order CovFluRsv at [facility] 10/07/20 17:14 COVID-19 PCR NEGATIVE (Negative) 10/07/20 17:14 Influenza Type A (PCR) Negative (Neg) 10/07/20 17:14 Influenza Type B (PCR) Negative (Neg) 10/07/20 17:14 RSV (RT-PCR) Negative (Neg) 10/07/20 17:[address] chest: 1. Motion compromised examination. 2. There is no evidence of central pulmonary embolus in the main, lobar, or proximal segmental pulmonary arteries. 3. Dense airspace consolidation is seen throughout the left lower lobe. This is typical for pneumonia and radiographic follow-up to resolution is recommended. Follow-up examinations should include both PA and lateral views. 3. Trace left pleural effusion. 4. Hepatic steatosis. 5. Mild splenomegaly. 6. Mildly enlarged mediastinal and left hilar lymph nodes are likely on a reactive basis. CT head: No acute intracranial abnormality. EKG as per my interpretation : Rate 105, sinus tachycardia, normal axis, diffuse T wave abnormalities
[2020-10-07] MEDS ORDERED: KETOROLAC TROMETHAMINE 15 MG/ML VIAL IV PRN (22:38)
[2020-10-07] MEDS ORDERED: POTASSIUM CHLORIDE 40 MEQ in SODIUM CHLORIDE 0.9% 1000ML 1,000 ML IV ONE (23:00)
[2020-10-07] MEDS: DOXYCYCLINE HYCLATE 100 MG CAP PO SCH (23:51)
[2020-10-08] MEDS: ACETAMINOPHEN 325 MG TAB PO PRN ×3 (03:38→15:36)
[2020-10-08] MEDS ORDERED: PNEUMOCOCCAL POLYSACCHARIDES 25 MCG/0.5 ML VIAL/SYR IM ONE (08:00)
[2020-10-08] MEDS ORDERED: PNEUMOCOCCAL ADMINISTRATION CHARGE ONE (08:00)
[2020-10-08] MEDS ORDERED: INFLUENZA ADMINISTRATION CHARGE ONE (08:00)
[2020-10-08] MEDS ORDERED: INFLUENZA VIRUS QUAD VACCINE 0.5 ML SYR IM ONE (08:00)
[2020-10-08 08:03] LABS: Basophils # (auto) 0.01 K/uL (0-0.2); Basophils % (auto) 0.4 %; Hematocrit (blood only) 38.5 % (42-52); Mean Corpuscular Hemoglobin 31.1 pg (25-34); Mean Corpuscular Hgb Conc 33.8 g/dL (32-36); Mean Corpuscular Volume 92.1 fL (80-100); Mean Platelet Volume 10.3 fL (7.4-10.4); Monocytes # (auto) 0.22 K/uL (0.11-0.59); Monocytes % (auto) 9.3 %; Neutrophils # (auto) 1.24 K/uL (1.4-6.5); Neutrophils % (auto) 52.3 %; Platelet Count 167 K/uL (130-400); RDW Coefficient of Variation 12.6 % (11.5-14.5); RDW Standard Deviation 42.5 fL (36.4-46.3); Red Blood Count 4.18 M/uL (4.7-6.1); White Blood Count 2.37 K/uL (4.8-10.8)
[2020-10-08 08:36] LABS: BUN Creatinine Ratio 13.1 (10-20); Calcium 8.4 mg/dl (8.5-10.1); Est GFR (Non-African American) 114.8; Potassium 3.6 mmol/L (3.5-5.1)
[2020-10-08] MEDS ORDERED: cefTRIAXone SODIUM 2,000 MG in DEXTROSE 5% 50 ML IV SCH (09:00)
[2020-10-08] MEDS: ENOXAPARIN INJ 40 MG/0.4 ML SYR SQ SCH (09:31)
[2020-10-08] MEDS: DOXYCYCLINE HYCLATE 100 MG CAP PO SCH ×2 (09:31→21:07)
[2020-10-08] MEDS: ASPIRIN 81 MG ECTAB PO SCH (09:32)
[2020-10-08] MEDS: IBUPROFEN 200 MG TAB PO PRN (09:42)
[2020-10-08] MEDS: PROMETHAZINE HCL 12.5 MG in SODIUM CHLORIDE 0.9% 50 ML IV PRN (17:37)
--- NOTE | 2020-10-08 17:46 | Hospitalist Progress Note ---
Date of Service October 08, 2020 Assessment & Plan (1) Sepsis: Pneumonia Present on admission with worsening pleuritic left-sided chest pain and shortness of breath associated with cough,nausea, emesis, fever, chills and confusion CTA showed no evidence of central pulmonary embolus in the main, lobar, or proximal segmental pulmonary arteries. Dense airspace consolidation is seen throughout the left lower lobe. CXR showed question subtle bilateral interstitial airspace opacities which are new from yesterday. COVID 19 negative Received Zosyn on admission Continue IV rocephin and doxycycline Continue breathing treatment Continue monitor closely Fever Possible related to Pneumonia Vs tickborne illness Lyme titer, COVID 19, influenza, RSV, and procalcitonin negative Anaplasma smear showed no evidence to suggest anaplasmosis Western blot pending and Anaplasma DNA pending Biofire was ordered by did not approved to get it Blood cx pending Continue tylenol prn for fever Continue Rocephin and Doxycycline Confusion Mostly due to acute illness CT head showed no intracranial abnormality resolved Multiple sclerosis No evidence of MS flare up On Rebif subq 3xweek stable DVT prophylaxis. Lovenox subcu Full code Disposition Will discharge once medically stable Patient's requesting updates from providers. Ms. Alessandra Kilpatrick, contact #[phone]. Admission and Anticipated Discharge Date Admission Date: October 07, 2020 Subjective Pt was seen and examined Sitting in chair with no distress Pt said that he feels much better today He said that early today that he had a fever He would like his diet to advance has been calling to ask for approval to visit him Spoke to and provided update on patient Denies any chest pain, palpitation, dizziness and SOB Physical Exam Physical Exam: General- No acute distress Head- atraumatic Eyes- PERRL, EOMI, ENT- oropharynx clear Neck- supple, no JVD Lungs- clear to auscultation Heart- regular rhythm; no murmur Abdomen- normal bowel sounds, soft, nontender Extremities- no calf tenderness Neuro- alert, oriented x 3; PERRL, EOMI; no facial palsy; no dysarthria Skin- warm & dry Results & Data Results & Data ([facility]) Vital Signs (Past 12 Hours) Vital Signs Temp Pulse Pulse Resp BP BP Pulse Ox 10/08/20 16:42 76 10/08/20 15:30 37.9 C H 91 H 18 147/99 H 96 10/08/20 11:15 37.1 C 82 18 123/82 93 10/08/20 07:30 86 10/08/20 07:21 37.6 C H 90 18 138/91 93
[2020-10-08] MEDS ORDERED: PIPERACILLIN/TAZOBACTAM 4.5 GM in DEXTROSE 5% 100 ML IV STA (19:50)
[2020-10-08] MEDS ORDERED: PIPERACILL/TAZOBAC CONSULT ACTIVE PRN (19:50)
[2020-10-08] MEDS ORDERED: KETOROLAC TROMETHAMINE 15 MG/ML VIAL IV ONE ×2 (19:50→22:16)
[2020-10-08] MEDS ORDERED: LACTATED RINGER'S 1,000 ML IV ONE (19:51)
--- NOTE | 2020-10-08 19:52 | Communication Note ---
Date of Service: October 08, 2020 Patient with intermittent fever spikes throughout the day despite ongoing antibiotic Rx. Really not feeling well as per RN. Junky cough the same. Change Ceftriaxone to Zosyn given possible aspiration event with nausea vomiting symptoms prior to admission. Consider Pulmonary consult if still febrile in a.m. RE complicated pneumonia (lobar pneumonia with trace L pleural effusion on admission CT chest)
[2020-10-08] MEDS ORDERED: PIPERACILLIN/TAZOBACTAM 4.5 GM in DEXTROSE 5% 100 ML IV ONE (20:30)
[2020-10-09] MEDS: PIPERACILLIN/TAZOBACTAM 3.375 GM in DEXTROSE 5% 100 ML IV SCH ×3 (01:58→18:16)
[2020-10-09] MEDS: PROMETHAZINE HCL 12.5 MG in SODIUM CHLORIDE 0.9% 50 ML IV PRN (03:06)
[2020-10-09] MEDS: ACETAMINOPHEN 325 MG TAB PO PRN ×3 (03:11→18:23)
[2020-10-09] MEDS ORDERED: KETOROLAC TROMETHAMINE 15 MG/ML VIAL IV ONE (03:55)
[2020-10-09 04:02] LABS: Basophils # (auto) 0.01 K/uL (0-0.2); Basophils % (auto) 0.4 %; Hematocrit (blood only) 39.4 % (42-52); Hemoglobin 12.9 g/dL (14.0-18.0); Immature Granulocytes # (auto) 0.01 K/uL (0.00-0.02); Immature Granulocytes % (auto) 0.4 %; Lymphocytes # (auto) 0.79 K/uL (1.2-3.4); Lymphocytes % (auto) 29.8 %; Mean Corpuscular Hemoglobin 30.6 pg (25-34); Mean Corpuscular Hgb Conc 32.7 g/dL (32-36); Mean Corpuscular Volume 93.4 fL (80-100); Mean Platelet Volume 10.4 fL (7.4-10.4); Monocytes # (auto) 0.24 K/uL (0.11-0.59); Monocytes % (auto) 9.1 %; Neutrophils % (auto) 60.3 %; Platelet Count 163 K/uL (130-400); RDW Coefficient of Variation 12.6 % (11.5-14.5); RDW Standard Deviation 42.9 fL (36.4-46.3); Red Blood Count 4.22 M/uL (4.7-6.1); White Blood Count 2.65 K/uL (4.8-10.8)
[2020-10-09 04:16] LABS: Albumin Level 2.6 gm/dl (3.4-5.0); BUN Creatinine Ratio 10.5 (10-20); Calcium 7.7 mg/dl (8.5-10.1); Creatinine Clr Calc Pharmacy 143.4 ml/min; Potassium 3.5 mmol/L (3.5-5.1)
[2020-10-09 04:18] LABS: Albumin Globulin Ratio 0.7 (0.9-2); Bilirubin,Total 0.5 mg/dl (0.2-1); Globulin 3.7 gm/dl (2.5-4.0); Total Protein 6.3 gm/dl (6.4-8.2)
--- NOTE | 2020-10-09 04:31 | Electrocardiogram Report ---
Test Reason : Blood Pressure : / mmHG Vent. Rate : 104 BPM Atrial Rate : 104 BPM P-R Int : 160 ms QRS Dur : 094 ms QT Int : 320 ms P-R-T Axes : 077 035 040 degrees QTc Int : 421 ms Sinus tachycardia Nonspecific ST and T wave abnormality Abnormal ECG When compared with ECG of 06-OCT-2020 11:20, T wave inversion less evident in Anterolateral leads Confirmed by Nick Fuller ([id number]) on 10/09/2020 4:31:20 AM Referred By: REFERRED SELF Confirmed By:Nick Fuller
[2020-10-09] MEDS: DOXYCYCLINE HYCLATE 100 MG CAP PO SCH ×2 (08:43→20:58)
[2020-10-09] MEDS: ASPIRIN 81 MG ECTAB PO SCH (08:43)
[2020-10-09] MEDS: ENOXAPARIN INJ 40 MG/0.4 ML SYR SQ SCH (08:45)
--- NOTE | 2020-10-09 17:16 | Hospitalist Progress Note ---
Date of Service October 09, 2020 Assessment & Plan (1) Sepsis: presented with Sepsis with associated metabolic encephalopathy, resolved. met SIRS criteria on admission , source of infection Left lower lobe pneumonia Present on admission with worsening pleuritic left-sided chest pain and shortness of breath associated with cough,nausea, emesis, fever, chills and confusion CTA showed no evidence of central pulmonary embolus in the main, lobar, or proximal segmental pulmonary arteries. Dense airspace consolidation is seen throughout the left lower lobe. CXR showed question subtle bilateral interstitial airspace opacities which are new from yesterday. COVID 19 negative on Zosyn , and Doxycycline for possible tickborne disease Fever continues to have intermittent fever pt reports fever started 5 days prior he developed cough Lyme titer, COVID 19, influenza, RSV, and procalcitonin negative Anaplasma smear showed no evidence to suggest anaplasmosis Western blot pending and Anaplasma DNA pending blood culture on 10/07/20 negative repeat blood culture ordered will repeat Chest Xray [facility] consulted Confusion /metabolic encephalopathy : Mostly due to acute illness CT head showed no intracranial abnormality resolved Multiple sclerosis No evidence of MS flare up On Rebif subq 3xweek stable DVT prophylaxis. Lovenox subcu Full code Disposition Pt and his requesting to be transferred to higher level of care , worried about continued fever with no improvement since admission . Ms. Alessandra Kilpatrick, contact #[phone].-updated over phone Admission and Anticipated Discharge Date Admission Date: October 07, 2020 Subjective continues to spike temp upset that inspite of being on antibiotic , his fever is not getting subsided requesting to be transferred to higher level of care -[facility] episodes of chills with fever no joint pain , no abdominal pain or nausea vomiting continues to have cough with non productive sputum Review of Systems Review of Systems: All systems reviewed & are unremarkable except as noted in HPI & below Constitutional: + fever and + chills Physical Exam Constitutional: WD/WN, vitals as above Eyes: PERRL, conjunctivae normal, anicteric sclerae ENMT: external ear and nose normal, oropharynx normal Neck: trachea midline, no thyromegaly Respiratory: no respiratory distress Auscultation: + diminished lung sounds and + rales Cardiovascular: RRR, no murmur, no edema Gastrointestinal (Abdomen): normal bowel sounds, soft, nontender, no hepatosplenomegaly Musculoskeletal: no cyanosis or clubbing, extremities motor strength 5/5 Skin: no rashes, warm and dry Neurologic: PERRL, EOMI, accommodation nl, no face palsy, no dysarthria Psychiatric: A+Ox3, euthymic affect Results & Data Results & Data ([facility]) Vital Signs (Past 12 Hours) Vital Signs Temp Pulse Pulse Resp BP Pulse Ox 10/09/20 15:55 37.2 C 10/09/20 15:18 37.3 C 81 18 129/88 93 10/09/20 13:20 37.5 C 10/09/20 11:17 36.9 C 81 18 132/91 95 10/09/20 10:51 37.4 C 10/09/20 07:36 37.1 C 76 18 146/87 H 96 10/09/20 07:00 75 10/09/20 05:38 37.2 C
[2020-10-09] MEDS: IBUPROFEN 200 MG TAB PO PRN (19:55)
[2020-10-09] MEDS: LACTOBACILLUS ACIDOPHILUS 1 GM PACK PO SCH (20:57)
[2020-10-10] MEDS: PIPERACILLIN/TAZOBACTAM 3.375 GM in DEXTROSE 5% 100 ML IV SCH ×2 (02:58→09:31)
[2020-10-10] MEDS: LACTOBACILLUS ACIDOPHILUS 1 GM PACK PO SCH ×3 (07:26→16:00)
[2020-10-10] MEDS ORDERED: VANCOMYCIN CONSULT ACTIVE PRN (07:28)
[2020-10-10] MEDS ORDERED: VANCOMYCIN HCL 1,000 MG in SODIUM CHLORIDE 0.9% 250 ML IV SCH (07:30)
--- NOTE | 2020-10-10 07:56 | XRay Report ---
XR chest 1V portable CLINICAL HISTORY: fever COMPARISON STUDY: 10/07/2020 FINDINGS: The heart is normal in size. There is no failure. No pleural effusions are visualized. Ther e are left lower lobe airspace opacity suspicious for pneumonia. Clinical and radiographic follow-up is recommended.[ IMPRESSION: Left lower lobe airspace opacities suspicious for pneumonia. Clinical and radiographic fo llow-up is recommended. ACT 112: Negative or not required by law. Electronically signed by: Darien Lee M.D. 10/10/2020 7:54 AM
[2020-10-10 07:59] LABS: Eosinophils # (auto) 0.01 K/uL (0-0.5); Eosinophils % (auto) 0.4 %; Hematocrit (blood only) 39.9 % (42-52); Hemoglobin 13.7 g/dL (14.0-18.0); Immature Granulocytes # (auto) 0.01 K/uL (0.00-0.02); Immature Granulocytes % (auto) 0.4 %; Lymphocytes # (auto) 0.88 K/uL (1.2-3.4); Lymphocytes % (auto) 32.1 %; Mean Corpuscular Hemoglobin 31.2 pg (25-34); Mean Corpuscular Hgb Conc 34.3 g/dL (32-36); Mean Corpuscular Volume 90.9 fL (80-100); Mean Platelet Volume 10.2 fL (7.4-10.4); Monocytes # (auto) 0.18 K/uL (0.11-0.59); Monocytes % (auto) 6.6 %; Neutrophils # (auto) 1.66 K/uL (1.4-6.5); Neutrophils % (auto) 60.5 %; Platelet Count 186 K/uL (130-400); RDW Coefficient of Variation 12.6 % (11.5-14.5); RDW Standard Deviation 41.9 fL (36.4-46.3); Red Blood Count 4.39 M/uL (4.7-6.1); White Blood Count 2.74 K/uL (4.8-10.8)
[2020-10-10] MEDS ORDERED: VANCOMYCIN HCL 2,500 MG in SODIUM CHLORIDE 0.9% 500 ML IV SCH (08:00)
--- NOTE | 2020-10-10 08:10 | XRay Report ---
XR chest 1V portable HISTORY: 45 years-old Male left lower lobe pnemonia follow-up study in a patient with left lower lob e pneumonia COMPARISON: Chest radiograph 10/09/2020, CTA chest 10/07/2020 TECHNIQUE: Portable AP view of the chest FINDINGS: Cardiomediastinal and hilar silhouettes are unchanged. No pneumothorax, or overt pulmonary edema. Eliazar ar right lung. Progressively worsened left lower lobe airspace opacities with trace left pleural effu rodolfo. Bones appear grossly intact. IMPRESSION: 1. Moderate progression of the left lung base airspace consolidation suggestive of ongoing pneumonia. 2. Trace left parapneumonic effusion. ACT 112: Negative or not required by law. The above report was generated using voice recognition software. It may contain grammatical, syntax o r spelling errors. Electronically signed by: Herminio Lacy M.D. 10/10/2020 8:09 AM
[2020-10-10] MEDS: ENOXAPARIN INJ 40 MG/0.4 ML SYR SQ SCH (08:39)
[2020-10-10] MEDS: DOXYCYCLINE HYCLATE 100 MG CAP PO SCH (08:39)
[2020-10-10] MEDS: ASPIRIN 81 MG ECTAB PO SCH (08:40)
[2020-10-10] MEDS: ACETAMINOPHEN 325 MG TAB PO PRN ×2 (09:41→17:37)
--- NOTE | 2020-10-10 10:51 | Pharmacy Report ---
Pharmacy Abx Dose Short Note - Date of Service October 10, 2020 - Assessment & Plan Assessment * Mr Kilpatrick is a 45 year old M receiving Vancomycin/Zosyn for treatment of sepsis/pna. * Pt was initially on Zosyn for CAP. Pt with intermittent fevers and repeat chest XR still indicative of PNA. * Abx escalated today to include Vancomycin. * Pt on doxycycline [employer]AD[employer] ARCH[employer] for suspected tick-borne illness. This has been continued through admission. * First set of BCx negative after 48hr. Repeat BCx pending. Plan Vancomycin * Vancomycin 2500mg IV x1 dose, then * Vancomycin 1750mg IV q8h * Patient's estimated p'kinetic parameters (based on CrCl >120mL/min): * Vd ~ 0.7L/kg Ke ~ 0.104/hr t1/2 ~ 6.7hr * Trough level ordered prior to the 4th maintenance dose Zosyn 3.375gm IV q8h Doxy 100mg PO BID Pharmacy will continue to follow and will adjust dose/frequency as necessary. Thank you.
--- NOTE | 2020-10-10 11:02 | Hospitalist Progress Note ---
Date of Service October 10, 2020 Assessment & Plan (1) Sepsis: Persistent fever: No improvement of temperature spike in spite of being on multiple antibiotics T-max 39.1 yesterday evening pt reports fever started 5 days prior he developed cough Lyme titer, COVID 19Negative test twice on 10/06 and 10/07, influenza, RSV, and procalcitonin negative Anaplasma smear showed no evidence to suggest anaplasmosis Western blot pending and Anaplasma DNA pending blood culture on 10/07/20 negative With blood culture ordered yesterday for persistent fever Chest x-ray shows progression of left lower lobe infiltrate presented with Sepsis with associated metabolic encephalopathy, resolved. met SIRS criteria on admission , source of infection Left lower lobe pneumonia Present on admission with worsening pleuritic left-sided chest pain and shortness of breath associated with cough,nausea, emesis, fever, chills and confusion CTA showed no evidence of central pulmonary embolus in the main, lobar, or proximal segmental pulmonary arteries. Dense airspace consolidation is seen throughout the left lower lobe. CXR showed question subtle bilateral interstitial airspace opacities which are new from yesterday. COVID 19 negative Antibiotic adjusted to broaden coverage, on Zosyn, added Vanco Continue on doxycycline for possible tickborne disease Confusion /metabolic encephalopathy : Mostly due to acute illness /Sepsis CT head showed no intracranial abnormality resolved -Mental status back to baseline Chest pain/EKG change Patient had pleuritic chest pain, with ST depression on V4 to V6 Echo showed no wall motion abnormality Appreciate input from cardiology No recurrence of chest pain past 2 to 3 days Repeat EKG ordered Multiple sclerosis No evidence of MS flare up On Rebif subq 3xweek stable DVT prophylaxis. Lovenox subcu Full code Disposition Pt and his requesting to be transferred to higher level of care , worried about continued fever with no improvement since admission Spoke with Colin Dunlap hospitalist, case discussed in detail, Hospitalist would want to talk with infectious disease service, and will get back to me . Alessandra Kilpatrick, contact #[phone].-updated over phone Admission and Anticipated Discharge Date Admission Date: October 07, 2020 Subjective Continues to spike temperature, Was febrile, temperature 102 Fahrenheit yesterday at 8 PM, Was given Tylenol, Woke up this morning with drenched in sweat, Continues to have dry nonproductive cough, no chest pain, Remains in room air Worried about his continued spike of fever Chest x-ray done today shows progression of infiltrate on left lower base Review of Systems Review of Systems: As per HPI, all 10 systems reviewed, all other ROS negative Constitutional: + fever and + chills Respiratory: + cough; no dyspnea Physical Exam Constitutional: WD/WN, vitals as above Eyes: PERRL, conjunctivae normal, anicteric sclerae ENMT: external ear and nose normal, oropharynx normal Neck: trachea midline, no thyromegaly Respiratory: no respiratory distress Auscultation: + diminished lung sounds and + rales Cardiovascular: RRR, no murmur, no edema Gastrointestinal (Abdomen): normal bowel sounds, soft, nontender, no hepatosplenomegaly Musculoskeletal: no cyanosis or clubbing, extremities motor strength 5/5 Skin: no rashes, warm and dry Neurologic: PERRL, EOMI, accommodation nl, no face palsy, no dysarthria Psychiatric: A+Ox3, euthymic affect Results & Data Results & Data ([facility]) Vital Signs (Past 12 Hours) Vital Signs Temp Pulse Pulse Resp BP Pulse Ox 10/10/20 09:40 37.7 C H 10/10/20 07:01 36.6 C 78 20 138/90 95 10/10/20 07:00 78 10/10/20 03:04 36.6 C 69 18 142/90 H 93 10/10/20 00:17 73
[2020-10-10] MEDS ORDERED: AZITHROMYCIN 250 MG TAB PO ONE (11:21)
--- NOTE | 2020-10-10 11:29 | Communication Note ---
Date of Service: October 10, 2020 Attending Addendum: reached out to [facility] in [place] for possible transfer due to recurrent fever, progression of pneumonia, not responding with current antibiotic treatment. Had a long discussion with on-call hospitalist Dr. Hutchison, and [facility] infectious disease Dr. Vasquez CAT scan report, culture reports, antibiotic regimen discussed in detail Per ID, recommends to DC the vancomycin, de-escalate antibiotic to IV Rocephin, add Zithromax for atypical coverage ( abx adjusted accordingly ) Antibiotic adjusted feels patient needs a pulmonology evaluation, bronchoscopy and check BALs specimen for COVID-19. [facility] hospitalist and ID is updated that currently at [facility] sputum or BAL specimen testing for COVID-19 is not available. Patient has a history of multiple sclerosis, on Biologics/interferon Beta given persisted fever while on abx , will benefit with transfer to Higher level of care . Hospitalist recommends to follow up pts status after Abx adjustment pt is not accepted to be transferred to [facility] today . Pulmonology Dr Oropeza consulted update given to Pt and his over the phone Jewels Scherer MD
[2020-10-10] MEDS ORDERED: cefTRIAXone SODIUM 2,000 MG in DEXTROSE 5% 50 ML IV SCH (12:00)
--- NOTE | 2020-10-10 13:51 | Pulmonary Consultation ---
Date of Consultation October 10, 2020 Assessment & Plan (1) Pneumonia: Laterality: left Lung location: unspecified part of lung Pneumonia type: due to unspecified organism Qualified Code(s): J18.9 - Pneumonia, unspecified organism (2) Fever: Fever type: unspecified Qualified Code(s): R50.9 - Fever, unspecified (3) Chest pain: Chest pain type: unspecified Qualified Code(s): R07.9 - Chest pain, unspecified (4) Abnormal CT scan of lung: Impression: 45-year-old male with a history of multiple sclerosis on interferon therapy admitted with pneumonia and fevers. Has been on a variety of antibiotics and has been persistently febrile. His chest x-ray has not shown resolution however typically chest x-ray can remain abnormal for 7 to 10 days and patients with normal lungs so I am not too concerned about that. The fact that he has been persistently febrile is somewhat concerning. Recommendations: 1. Pneumonia: Agree with ID recommendations that the patient be left on Rocephin and azithromycin long enough to see if it is actually making a difference. His fever curve may be showing some improvement and I would recommend continuing to follow it at this point time. 2. I did discuss the utility of bronchoscopy. Bronchoscopy for routine pulmonary pathogens in patients who have already been on extended spectrum antibiotics is typically low yield. We would uncover unusual pathogen such as fungal pneumonia or P EBEN however the patient does not appear to have significant risk for that. He has no risk factors for tuberculosis either. He has had 2 - Covid test at this point in time. He is also had influenza tests that were negative. We could consider performing a bio fire however that test is unlikely to provide actionable information as there would be no specific therapy for the majority of the pathogens identified. In addition, I do not think he requires bronchoscopy to test for Covid as that would expose the bronchoscopy rest and bronchoscopy team to a high risk procedure with again no change in management as the patient is not hypoxemic and would not qualify for remdesivir or dexamethasone if he were to have Covid. My suspicion with 2 - test is quite low. 3. The patient is mildly leukopenic and anemic of unclear etiology. His plate let counts are normal. It does not appear that this has been addressed. This appears to be a new finding compared to the CBC obtained in April. Liver function tests are not bumped so hemolysis seems unlikely. Viral illness including (EBV, CMV, parvo) could cause this pattern. Additional work-up per his primary doctor. May need to consider other etiologies of fever (? lymphoma)> [facility] consult Will follow with you. If fever curve fails to improve, could consider bronchoscopy with BAL but doubt it will lead to actionable data. Discussed [facility] patient at bedside. History of Present Illness Attending Physician: Jewels Scherer MD History of Present Illness Asked by the hospitalist to evaluate this patient with fevers and pneumonia. History is obtained from discussion with the patient as well as review the electronic medical record. Patient is a 45-year-old male with a history of multiple sclerosis. He was diagnosed about 10 years ago and presented with eye changes at that point time. He has been maintained on interferon beta-1 and has had no issues since initiating that medication. The patient reportedly had a tick bite about a month ago. He was doing well until about 8 days ago when he developed fevers and shaking chills at home. He was seen in the emergency room on the for chest discomfort. He states that he also had a dry cough at that point time. 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 His Covid test was negative in the emergency room. His EKG at that point time showed some ST depressions in the inferior and lateral leads with a negative troponin. Follow-up troponin was also negative. He was initially started on doxycycline and Rocephin in the emergency room. Cardiology evaluated him with an echocardiogram and the patient was dismissed from the facility on oral doxycycline. He unfortunately had persistent fevers despite taking the antibiotics and return to the emergency room on the where he was admitted. Chest x-ray and CT angiogram at that point time showed a left lower lobe infiltrate. On the the patient was placed on Zosyn doxycycline. He was transitioned to Rocephin 10/08 with doxycycline and then switch back to Zosyn yesterday. Doxycycline has been continued. The patient has been persistently febrile although his fever curve does suggest that the fever may be slightly decreasing. He is coughing but not expectorating phlegm. The chest pain is better. He continues to have what he describes as drenching night sweats. He does not feel short of breath and is not wheezing. 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 He has no other occupational or environmental exposures. He has dogs at home but no other pets. He is a lifelong non-smoker. No family history of lung disease that he is aware of. Allergies Allergy/AdvReac Type Severity Reaction Status Date / Time No Known Allergies Allergy Verified 10/07/20 20:02 Home Medications Medication Instructions Recorded Confirmed Type acetaminophen [Tylenol Extra 1,000 mg PO Q6H PRN 10/06/20 10/07/20 History Strength] doxycycline hyclate 100 mg PO BID 14 Days #28 tab 10/06/20 10/07/20 Rx aspirin [Aspirin Low Dose] 81 mg PO QAM 10/07/20 10/07/20 History interferon beta-1a (albumin) 0.5 ml SUBCUT 3XWK 10/07/20 10/07/20 History [Rebif (with albumin)] Patient History Medical History Encounter for pre-operative examination Fracture of distal fibula Left ureteral stone Multiple kidney stones Surgical History History of ankle surgery RIGHT ANKLE ORIF History of lithotripsy Family History Other Family history of breast cancer in mother Social History Smoking Status: Never smoker Second Hand Exposure: No; Hx Alcohol Use: No Hx Substance Use: No Preferred Language: Hungarian Communication Ability: Effective 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 No additions or deletions Physical Exam Constitutional: WD/WN, vitals as above Neck: trachea midline, no thyromegaly Respiratory: normal respiratory effort Crackles at the left lung base Cardiovascular: RRR, no murmur, no edema Gastrointestinal (Abdomen): normal bowel sounds, soft, nontender, no hepatosplenomegaly Musculoskeletal: Extremities: extremities normal to inspection Skin: no rashes, warm and dry Neurologic: Nonfocal exam Lymphatic: no cervical lymphadenopathy Results & Data Results & Data ([facility]) Vital Signs (Past 12 Hours) Vital Signs Temp Pulse Pulse Resp BP Pulse Ox 10/10/20 11:25 37.2 C 81 18 122/78 94 10/10/20 09:40 37.7 C H 10/10/20 07:01 36.6 C 78 20 138/90 95 10/10/20 07:00 78 10/10/20 03:04 36.6 C 69 18 142/90 H 93 Laboratory Results 10/10/20 07:43 10/09/20 03:46 Procalcitonin on presentation was 0.21 Lyme serologies pending but initial screen was negative Lactate normal at 1.2 C. difficile was negative Diagnostic Findings Imaging studies were all independently reviewed. His chest x-ray from 10/06/2020 demonstrated no acute infiltrate. Follow-up chest x-ray performed 10/07/2020 did demonstrate some hazy increased opacities at the left lung base. This was followed with a CT angiogram 10/07/2020 which demonstrated consolidation in the left lower lung zone. Chest x-ray performed today showed infiltrates in the left lung zone. PG Care Time/CCT Total # of Minutes Spent Total Time Spent with Patient: Total time spent is greater than 50% in coordination of care (as documented) at patient's floor/unit and/or counseling patient: Coding Level of Care Code 39426 Inpt Consult Level 5 Diagnoses Pneumonia J18.9 Laterality: left Lung location: unspecified part of lung Pneumonia type: due to unspecified organism Fever R50.9 Fever type: unspecified Chest pain R07.9 Chest pain type: unspecified Abnormal CT scan of lung R91.8
[2020-10-10] MEDS ORDERED: LOPERAMIDE HCL 2 MG CAP PO PRN (13:58)
[2020-10-10] MEDS ORDERED: IOVERSOL 100ml IV ONE (14:19)
--- NOTE | 2020-10-10 14:35 | Communication Note ---
Date of Service: October 10, 2020 pt continues to have loose stool with poor appetite no complain of abdominal pain , no n/v having intermittent fever Imodium PRN ordered added lactinex as pt is on broad spectrum Abx CT abdomen/pelvis w/contrast to eval colitis Jewels Scherer MD
--- NOTE | 2020-10-10 14:39 | CT Scan Report ---
ABDOMEN AND PELVIS CT WITH IV CONTRAST CT DOSE: 686.76 mGy.cm HISTORY: Acute generalized abdominal pain with diarrhea diarrhea /eval for colitis TECHNIQUE: Multiaxial CT images of the abdomen and pelvis were performed following the IV administrat ion of 94 cc of Optiray 320, A dose lowering technique was utilized adhering to the principles of AL MARIELLA. COMPARISON STUDY: CT abdomen and pelvis 04/16/2019 FINDINGS: Trace left pleural effusion. Left lower lobe consolidation, partially imaged. Calcified gra nuloma of the basal right lower lobe. Trace right pleural effusion with minimal dependent atelectasis . There is no pneumatosis or pneumoperitoneum. Imaged inferior cardiac chambers are unremarkable. Spl een is mildly enlarged, 14.5 cm. Unremarkable pancreas, adrenal glands and gallbladder. Hepatic steat osis. Patency of the hepatic and portal veins. Mild nonspecific bilateral perinephric stranding. 1.4 cm cyst of the posterior interpolar right kidne y. No definite renal or ureteral calculi. No obstructive uropathy. Mild prostamegaly. Partial distent ion of the urinary bladder. No aortic aneurysm or adenopathy. Mild nonspecific distal esophageal wall thickening with tiny hiatal hernia. There is no bowel obstruc tion. Mild degree of free fluid within the dependent pelvis. Colonic diverticulosis. Air-fluid levels are noted throughout the colon. There is minimal inflammatory stranding centered around a proximal e thmoid diverticulum on image 387 series 3. Noninflamed appendix. No drainable fluid collection. Calci fied granulomata of the subcutaneous anterior abdominal wall. Bones appear intact. No acute fracture. Bone island of the right femoral head. IMPRESSION: 1. Mild acute sigmoid diverticulitis. 2. Colonic air-fluid levels suggest diarrheal illness. 3. No bowel obstruction or pneumoperitoneum. 4. Partially imaged left lower lobe consolidation suggests pneumonia. 5. Trace pleural effusions ACT 112: Negative or not required by law. The above report was generated using voice recognition software. It may contain grammatical, syntax o r spelling errors. Electronically signed by: Herminio Lacy M.D. 10/10/2020 2:37 PM
[2020-10-10 14:42] LABS: Reticulocyte % 0.7 % (0.5-2.0); Reticulocytes # 0.03 10^6/uL (0.02-0.10)
[2020-10-10] MEDS ORDERED: VANCOMYCIN HCL 1,750 MG in SODIUM CHLORIDE 0.9% 500 ML IV SCH (16:00)
[2020-10-10] MEDS ORDERED: levoFLOXacin/D5W 500 MG/100 ML BAG IV SCH (16:30)
--- NOTE | 2020-10-10 16:50 | Communication Note ---
Date of Service: October 10, 2020 Attending addendum : CT abdomen/Pelvis -report reviewed : 1. Mild acute sigmoid diverticulitis. 2. Colonic air-fluid levels suggest diarrheal illness. 3. No bowel obstruction or pneumoperitoneum. 4. Partially imaged left lower lobe consolidation suggests pneumonia. 5. Trace pleural effusions diet changed to clears , Abx changed to PO Levaquin for pneumonia /added Flagyl ( discussed with Ge[facility] ID Dr Daniel ) gentle IV hydration GI eval requested plan of care updated to Pt and over phone Jewels Scherer MD
[2020-10-10] MEDS: LACTATED RINGER'S 1,000 ML IV SCH (16:57)
[2020-10-10] MEDS: metroNIDAZOLE 500 MG/100 ML BAG IV SCH (17:30)
[2020-10-10] MEDS: IBUPROFEN 200 MG TAB PO PRN (22:16)
[2020-10-10] MEDS ORDERED: cloNIDine HCL 0.1 MG TAB PO ONE (22:20)
[2020-10-11] MEDS: metroNIDAZOLE 500 MG/100 ML BAG IV SCH ×2 (01:48→09:15)
[2020-10-11] MEDS: LACTATED RINGER'S 1,000 ML IV SCH (05:27)
[2020-10-11] MEDS ORDERED: AZITHROMYCIN 250 MG TAB PO SCH (09:00)
[2020-10-11] MEDS: ASPIRIN 81 MG ECTAB PO SCH (09:01)
[2020-10-11] MEDS: ENOXAPARIN INJ 40 MG/0.4 ML SYR SQ SCH (09:03)
[2020-10-11] MEDS: LACTOBACILLUS ACIDOPHILUS 1 GM PACK PO SCH ×2 (09:05→12:40)
--- NOTE | 2020-10-11 09:51 | Pulmonology Progress Note ---
Date of Service October 11, 2020 Assessment & Plan (1) Pneumonia: Laterality: left Lung location: unspecified part of lung Pneumonia type: due to unspecified organism Qualified Code(s): J18.9 - Pneumonia, unspecified organism (2) Fever: Fever type: unspecified Qualified Code(s): R50.9 - Fever, unspecified (3) Chest pain: Chest pain type: unspecified Qualified Code(s): R07.9 - Chest pain, unspecified (4) Abnormal CT scan of lung: Impression: 45-year-old male with a history of multiple sclerosis on interferon therapy admitted with pneumonia and fevers. Evaluation yesterday revealed sigmoid diverticular disease and antibiotics were changed to Flagyl and Levaquin. He feels better. We did conduct some additional evaluation and studies are currently pending. His leukopenia and anemia could be related to his interferon. Recommendations: 1. Pneumonia: Under ID consultation the patient is now been transitioned to Levaquin and Flagyl which again should be adequate coverage for his pneumonia. I am reassured by the fact that his imaging of his abdomen and pelvis did interrogate the lung bases and these appear to be improved compared to a prior CT scan from 3 or 4 days ago. I do recommend clinical follow-up with a repeat chest x-ray in 2 to 4 weeks after the patient has completed antimicrobial therapy. Will defer additional changes in antibiotics to infectious disease and the patient's primary service. Given his clinical improvement, I do not believe that bronchoscopy is warranted currently. 2. Multiple serologies are currently pending. He can follow-up with ID and his primary care provider. 3. From a pulmonary perspective, the patient can be dismissed from the hospital. Antibiotic recommendations and duration is deferred to the infectious disease consultants. He should have a follow-up chest x-ray in 2 to 4 weeks. I would be happy to see him in clinic if needed or he can follow-up with his primary care provider. The above recommendations and plan were discussed with the patient. Questions were answered to the best of my ability and he expressed understanding and is in agreement with the plan as outlined Discussed wtih patient at bedside. Admission and Anticipated Discharge Date Admission Date: October 07, 2020 Subjective Patient seen and examined. 24-hour events reviewed. CT abdomen was performed which revealed colonic inflammation. After consultation with [facility] ID was changed to Flagyl and Levaquin. He states he feels better. He did not really have drenching night sweats last night. His fever curve is improving. His cough is better. He does not feel short of breath at all Review of Systems Review of Systems: All systems reviewed & are unremarkable except as noted in HPI & below Physical Exam Constitutional: WD/WN, vitals as above Neck: trachea midline, no thyromegaly Respiratory: normal respiratory effort Auscultation: + rales (Left lung base) Cardiovascular: RRR, no murmur, no edema Gastrointestinal (Abdomen): normal bowel sounds, soft, nontender, no hepatosplenomegaly Musculoskeletal: Extremities: extremities normal to inspection Skin: no rashes, warm and dry Lymphatic: no cervical lymphadenopathy Results & Data Results & Data ([facility]) Vital Signs (Past 12 Hours) Vital Signs Temp Pulse Pulse Resp BP BP Pulse Ox 10/11/20 07:34 36.7 C 66 18 142/92 H 159/109 H 95 10/11/20 07:00 59 L 10/11/20 03:06 37.2 C 59 L 18 141/95 H 97 10/10/20 23:27 37.1 C 135/86 10/10/20 23:15 66 10/10/20 22:27 37.5 C 67 18 150/101 H 95 Laboratory Results 10/10/20 07:43 10/09/20 03:[address] of the abdomen and pelvis from yesterday revealed mild acute sigmoid diverticulitis with colonic air-fluid levels suggestive of acute diarrheal illness. Bases of the lung demonstrated persistent consolidation at the left lung base however this appeared improved compared to CT scan from 10/07/2020 PG Care Time/CCT Total # of Minutes Spent Total Time Spent with Patient: Total time spent is greater than 50% in coordination of care (as documented) at patient's floor/unit and/or counseling patient: Coding Level of Care Code 58635 Subseq Hosp Care Lvl 2 Diagnoses Pneumonia J18.9 Laterality: left Lung location: unspecified part of lung Pneumonia type: due to unspecified organism Fever R50.9 Fever type: unspecified Chest pain R07.9 Chest pain type: unspecified Abnormal CT scan of lung R91.8
[2020-10-11 10:33] LABS: BUN Creatinine Ratio 5.3 (10-20); Calcium 8.9 mg/dl (8.5-10.1); Est GFR (African American) 130.7; Est GFR (Non-African American) 112.8; Potassium 3.3 mmol/L (3.5-5.1)
[2020-10-11 10:36] LABS: Ferritin 1128.6 ng/ml (8-388)
--- NOTE | 2020-10-11 11:00 | Gastrointestinal Consultation ---
Date of Consultation October 11, 2020 Assessment & Plan (1) Diverticulitis: Pt is a 45 y/o male seen for mild uncomplicated sigmoid diverticulitis. Currently asymptomatic - Regular diet - Continue Levaquin (both coverage for pneumonia and diverticulitis) and Flagyl x 10 days total for diverticulitis coverage - Fiber supplement daily - Colonoscopy eval in 6+ weeks ; we will set up outpt appt - GI to sign off; pls recall prn Supervising Physician Co-Signing Physician Notes I have seen and examined the patient with CONNOR Santiago whose note reflects our findings and plan. Uncomplicated diverticulitis as well as ?pneumonia. Patient without pain. Tolerating diet. Agree with completing full 10 course of abx. Will need an outpatient colonoscopy in 6+ weeks. Abd benign on exam. Please call with questions. History of Present Illness Reason for Consultation: Diverticulitis Requesting Physician: Dr. Jewels Scherer Attending Physician: Dr. Julissa Ledezma History of Present Illness Pt is a 45 y/o male w hx of MS, currently admitted w sepsis secondary to pneumonia. He had CT abd/pelvis w contrast yesterday for abd pain, diarrhea symptoms. This showed uncomplicated mild sigmoid diverticulitis. He reports today he has had no abd pain, n/v. Did spike fever overnight. He is currently on Levaquin and Flagyl IV antibx. Pt denies hx of past diverticulitis. Never had colonoscopy evaluations in the past. Denies family hx of colorectal ca. Allergies Allergy/AdvReac Type Severity Reaction Status Date / Time No Known Allergies Allergy Verified 10/07/20 20:02 Home Medications Medication Instructions Recorded Confirmed Type acetaminophen [Tylenol Extra 1,000 mg PO Q6H PRN 10/06/20 10/07/20 History Strength] doxycycline hyclate 100 mg PO BID 14 Days #28 tab 10/06/20 10/07/20 Rx aspirin [Aspirin Low Dose] 81 mg PO QAM 10/07/20 10/07/20 History interferon beta-1a (albumin) 0.5 ml SUBCUT 3XWK 10/07/20 10/07/20 History [Rebif (with albumin)] Patient History Medical History Encounter for pre-operative examination Fracture of distal fibula Left ureteral stone Multiple kidney stones Surgical History History of ankle surgery RIGHT ANKLE ORIF History of lithotripsy Family History Other Family history of breast cancer in mother Social History Smoking Status: Never smoker Second Hand Exposure: No; Hx Alcohol Use: No Hx Substance Use: No Preferred Language: Hungarian Communication Ability: Effective Chainstitch Felled Seam Operator Required: No Beliefs That Will Affect Care: None Current Living Situation: Spouse and Family Other Information That Helps Us Care for You: No Feels Safe at Home: Yes Safety Concerns: Feels Safe At This Time Assistive Devices: None Review of Systems Review of Systems: All systems reviewed & are unremarkable except as noted in HPI & below Physical Exam Constitutional: WD/WN, vitals as above well groomed, cooperative and comfortable Eyes: PERRL, conjunctivae normal, anicteric sclerae ENMT: external ear and nose normal, oropharynx normal Respiratory: normal respiratory effort, lungs clear to auscultation Cardiovascular: RRR, no murmur, no edema Gastrointestinal (Abdomen): normal bowel sounds, soft, nontender, no hepatosplenomegaly Skin: no rashes, warm and dry no jaundice Psychiatric: A+Ox3, euthymic affect Lymphatic: no lymphedema Results & Data ([facility]) Vital Signs (Past 12 Hours) Vital Signs Temp Pulse Pulse Resp BP BP Pulse Ox 10/11/20 07:34 36.7 C 66 18 142/92 H 159/109 H 95 10/11/20 07:00 59 L 10/11/20 03:06 37.2 C 59 L 18 141/95 H 97 10/10/20 23:27 37.1 C 135/86 10/10/20 23:15 66
[2020-10-11] MEDS ORDERED: POTASSIUM CHLORIDE CRTAB 20 MEQ TABCR PO STA (11:51)
--- NOTE | 2020-10-11 12:17 | Hospitalist Progress Note ---
Date of Service October 11, 2020 Assessment & Plan (1) Sepsis: Persistent fever: No improvement of temperature spike in spite of being on multiple antibiotics T-max 39.1 yesterday evening pt reports fever started 5 days prior he developed cough Lyme titer, COVID 19Negative test twice on 10/06 and 10/07, influenza, RSV, and procalcitonin negative Anaplasma smear showed no evidence to suggest anaplasmosis Western blot pending and Anaplasma DNA pending blood culture on 10/07/20 negative With blood culture ordered yesterday for persistent fever Chest x-ray shows progression of left lower lobe infiltrate presented with Sepsis with associated metabolic encephalopathy, resolved. met SIRS criteria on admission , source of infection Left lower lobe pneumonia Present on admission with worsening pleuritic left-sided chest pain and shortness of breath associated with cough,nausea, emesis, fever, chills and confusion CTA showed no evidence of central pulmonary embolus in the main, lobar, or proximal segmental pulmonary arteries. Dense airspace consolidation is seen throughout the left lower lobe. CXR showed question subtle bilateral interstitial airspace opacities which are new from yesterday. COVID 19 negative Antibiotic adjusted to broaden coverage, on Zosyn, added Vanco Continue on doxycycline for possible tickborne disease Confusion /metabolic encephalopathy : Mostly due to acute illness /Sepsis CT head showed no intracranial abnormality resolved -Mental status back to baseline Chest pain/EKG change Patient had pleuritic chest pain, with ST depression on V4 to V6 Echo showed no wall motion abnormality Appreciate input from cardiology No recurrence of chest pain past 2 to 3 days Repeat EKG ordered Multiple sclerosis No evidence of MS flare up On Rebif subq 3xweek stable DVT prophylaxis. Lovenox subcu Full code Disposition Pt and his requesting to be transferred to higher level of care , worried about continued fever with no improvement since admission Spoke with eloy [place] hospitalist, case discussed in detail, Hospitalist would want to talk with infectious disease service, and will get back to me . Ms. Alessandra Kilpatrick, contact #[phone].-updated over phone Admission and Anticipated Discharge Date Admission Date: October 07, 2020 Subjective Patient seen and examined. 24-hour events reviewed. CT abdomen was performed which revealed colonic inflammation. After consultation with eloy ID was changed to Flagyl and Levaquin. He states he feels better. He did not really have drenching night sweats last night. His fever curve is improving. His cough is better. He does not feel short of breath at all Physical Exam Constitutional: WD/WN, vitals as above Eyes: PERRL, conjunctivae normal, anicteric sclerae ENMT: external ear and nose normal, oropharynx normal Neck: trachea midline, no thyromegaly Respiratory: no respiratory distress Auscultation: + diminished lung sounds and + rales Cardiovascular: RRR, no murmur, no edema Gastrointestinal (Abdomen): normal bowel sounds, soft, nontender, no hepatosplenomegaly Musculoskeletal: no cyanosis or clubbing, extremities motor strength 5/5 Skin: no rashes, warm and dry Neurologic: PERRL, EOMI, accommodation nl, no face palsy, no dysarthria Psychiatric: A+Ox3, euthymic affect Results & Data Results & Data ([facility]) Vital Signs (Past 12 Hours) Vital Signs Temp Pulse Pulse Resp BP BP Pulse Ox 10/11/20 12:12 36.8 C 67 18 158/100 H 97 10/11/20 07:34 36.7 C 66 18 142/92 H 159/109 H 95 10/11/20 07:00 59 L 10/11/20 03:06 37.2 C 59 L 18 141/95 H 97
[2020-10-11] MEDS ORDERED: levoFLOXacin 750 MG TAB PO SCH (13:00)
[2020-10-11] MEDS: ACETAMINOPHEN 325 MG TAB PO PRN (13:06)
--- NOTE | 2020-10-11 14:10 | Discharge Summary ---
Date of Service October 11, 2020 Admission HPI Per Admitting Provider History obtained from patient, family, and records. Medical history significant for multiple sclerosis on Rebif therapy. 1 week history of fever, fatigue, headache and body ache symptoms. 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 Achy chest pain about 3 days ago. Poor appetite. Patient worried about tick exposure due to hunting activities although no recollection of recent tick bites. Patient patient consulted ER yesterday. Normal chest x-ray and ST abnormalities on EKG noted. COVID-19 and Lyme screen testing negative. Normal echocardiogram done at the ER. Patient also evaluated by cardiology at the ER. Patient discharged on doxycycline course for presumptive tickborne illness. This afternoon, patient noted junky cough symptoms followed by worsening pleuritic left-sided chest pain and shortness of breath, nausea, emesis, fever, chills. Patient a little confused at home as per . No diarrhea. At the ER, patient received Zosyn for sepsis. 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 [employer] Principal Diagnosis Sepsis due to left lower lobe pneumonia Sigmoid diverticulitis Discharge Exam Constitutional WD/WN, vitals as above well groomed, cooperative and comfortable Eyes PERRL, conjunctivae normal, anicteric sclerae ENMT external ear and nose normal, oropharynx normal Neck trachea midline, no thyromegaly Respiratory normal respiratory effort, lungs clear to auscultation normal respiratory effort; no respiratory distress Auscultation: + diminished lung sounds and + rales (Left lung base) Cardiovascular RRR, no murmur, no edema Gastrointestinal (Abdomen) normal bowel sounds, soft, nontender, no hepatosplenomegaly Musculoskeletal no cyanosis or clubbing, extremities motor strength 5/5 Extremities: extremities normal to inspection Skin no rashes, warm and dry no jaundice Neurologic PERRL, EOMI, accommodation nl, no face palsy, no dysarthria Psychiatric A+Ox3, euthymic affect Lymphatic no lymphedema and no cervical lymphadenopathy Discharge Data Allergies Allergy/AdvReac Type Severity Reaction Status Date / Time No Known Allergies Allergy Verified 10/07/20 20:02 Consultations 10/07/20 19:31 ED Decision to Admit Stat 10/09/20 14:48 Consult Infectious Diseases Routine 10/10/20 11:19 Consult Pulmonology Routine 10/10/20 16:24 Consult Gastroenterology Routine Ordered Studies 10/07/20 18:39 CT angio chest PE protocol Stat CT head/brain wo con Stat 10/10/20 14:00 CT abd pelvis IV con only Routine Hospital Course (1) Sepsis: Persistent fever: Altered, has been afebrile for past 24 hours Is much better today Lyme titer, COVID 19Negative test twice on 10/06 and 10/07, influenza, RSV, and procalcitonin negative Anaplasma smear showed no evidence to suggest anaplasmosis blood culture on 10/07/20 negative Blood culture remains negative as well Chest x-ray shows progression of left lower lobe infiltrate-left lower lobe pneumonia community-acquired presented with Sepsis with associated metabolic encephalopathy, resolved. met SIRS criteria on admission , source of infection Left lower lobe community- acquired pneumonia Present on admission with worsening pleuritic left-sided chest pain and shortness of breath associated with cough,nausea, emesis, fever, chills and confusion CTA showed no evidence of central pulmonary embolus in the main, lobar, or proximal segmental pulmonary arteries. Dense airspace consolidation is seen throughout the left lower lobe. CXR showed question subtle bilateral interstitial airspace opacities which are new from yesterday. COVID 19 negative Appreciate input from [employer] ID: Antibiotic changed to p.o. Levaquin Patient is symptomatically/clinically improved, stable to be discharged home today Sigmoid diverticulitis: Incidental finding in CT abdomen pelvis, Does not have any GI symptoms no nausea vomiting, diarrhea has improved, tolerating solid diet Appreciate input from GI, patient will be discharged on Levaquin Patient follow-up with GI in 6 weeks for screening colonoscopy Confusion /metabolic encephalopathy : No further issues, alert awake oriented x3-to be discharged home today Mostly due to acute illness /Sepsis CT head showed no intracranial abnormality resolved -Mental status back to baseline Chest pain/EKG change Recurrence of chest pain, echo shows no wall motion abnormality, repeat EKG shows resolution of ST depression on lateral leads Multiple sclerosis No evidence of MS flare up On Rebif subq 3xweek stable DVT prophylaxis. Lovenox subcu Full code Disposition Is discharged home in stable condition Total Time Total Time Spent Total Time Spent (In Minutes): Proximately 35 minutes Total Time Includes: Discharge Planning, Medication Reconciliation and Communication With Other Providers Discharge Plan Discharge Items Patient Disposition: Home - Self-Care Reason For Visit: NOEMI KNIGHT REQ FOR PRIVATE IF AVAILABLE Discharge Diagnosis: SEPSIS DUE TO LEFT LOWER LOBE PNEUMONIA SIGMOID DIVERTICULITIS Condition on Discharge: Good Activity: Resume your previous activity Non-emergency contact: Primary Care Provider Call non-emergency contact if: you have any medication questions Follow-up/Referrals: Joce Oropeza MD [Physician] - (PULMONOLOGT FOLLOW UP IN 2-4 WEEKS WITH REPEAT CHEST XRAY ) Ruiz Monreal DO [Primary Care Provider] - 10/16/20 11:20 am Taylor Blum CRNP [Nurse Practitioner] - (GI FLLOW UP IN 6 WEEKS FOR COLONOSCOPY ) Diet: Regular Ambulatory Orders: Basic Metabolic Panel (Routine) Timeframe: 20201016 Location: Determined by Patient Ordered By: Jewels Scherer Complete Blood Count no Diff (Routine) Timeframe: 20201016 Location: Determined by Patient Ordered By: Jewels Scherer XR chest 2V PA/lateral (Routine) Timeframe: 2 Weeks Location: Determined by Patient Ordered By: Jewels Scherer Addtl Attending Provider Instructions: HOSPITAL FOLLOW UP WITH DR MONREAL Wednesday10/16/20 @ 11: 20 AM FOLLOW UP WITH GASTROENTEROLOGY IN 6 WEEKS TO SCHEDULE COLONOSCOPY -EVALUATION FOR SIGMOID DIVERTICULITIS PULMONOLOGY FOLLOW UP WITH DR OROPEZA IN CLINIC take over the counter Probiotics three times daily with meals to prevent antibiotic causing gastroenteritis -C diff Pending Studies at Discharge: Yes Studies:: CHEST XRAY IN 2 weeks Lab : Complete blood count /basic metabolic panel with next physician visit -Low potassium level Stand-Alone Forms: My [employer], Smoking Cessation Medications and DC Order Prescriptions: New Floranex 100 million cell Granules In Packet 1 g PO TIDM 30 Days Qty: 0 RF: 0 levofloxacin 750 mg tablet 750 mg PO DAILY 5 Days Qty: 5 RF: 0 Continued acetaminophen [Tylenol Extra Strength] 500 mg Tablet 1,000 mg PO Q6H PRN (Reason: Pain) RF: 0 aspirin [Aspirin Low Dose] 81 mg Tablet,Delayed Release (Dr/Ec) 81 mg PO QAM RF: 0 Rebif (with albumin) 44 mcg/0.5 mL syringe 0.5 ml SUBCUT 3XWK RF: 0 Discontinued doxycycline hyclate 100 mg tablet 100 mg PO BID 14 Days Qty: 28 RF: 0 Discharge Orders: Discharge Order (Routine); Ordered 10/11/20 Ordered By: Jewels Hernandez/Other Patient Handouts: Diverticulosis Diverticulitis Admission Data Admit Date/Time: 10/07/20 21:07 Attending Provider: Jewels Scherer Admit Provider: Jose Hess Primary Care Provider: Ruiz Monreal Other Providers: Jose Hess ; Keturah Gaffney ; Cullen Harman ; Mateo Barrera ; Francesco Dutton I. ; Junior Roque II ; Anisa Evans ; Nikolai Wyatt ; Joce Oropeza ; Trev Arana ; Pauline Murray ; Yaakov Soler ; Maranda Smith ; Roderick Pino ; Swetha Villarreal ; Melody Ospina ; Az Connors ; Morales Ramos ; Ketty Arzola ; Julissa Ledezma ; Taylor Blum ; Mely Pennington ; Pricilla Solitario Other Interventions: Discharge Summary Assessment (RN) Last Done: 10/11/20 12:18
[2020-10-11] MEDS ORDERED: VANCOMYCIN TROUGH ONE (15:30)
--- NOTE | 2020-10-11 21:34 | Electrocardiogram Report ---
Test Reason : Blood Pressure : / mmHG Vent. Rate : 074 BPM Atrial Rate : 074 BPM P-R Int : 172 ms QRS Dur : 104 ms QT Int : 372 ms P-R-T Axes : 041 046 -15 degrees QTc Int : 412 ms Poor data quality, interpretation may be adversely affected Normal sinus rhythm Nonspecific ST and T wave abnormality Abnormal ECG When compared with ECG of 07-OCT-2020 16:55, Nonspecific T wave abnormality, worse in Anterior leads T wave inversion no longer evident in Lateral leads QT has shortened Confirmed by Destin Juárez ([id number]) on 10/11/2020 9:34:19 PM Referred By: REFERRED SELF Confirmed By:Destin Juárez
[2020-10-12 09:11] LABS: 18KDIGG Band NON-REACTIVE; 23KDIGG Band NON-REACTIVE; 23KDIGM Band NON-REACTIVE; 28KDIGG Band NON-REACTIVE; 30KDIGG Band NON-REACTIVE; 39KDIGG Band REACTIVE; 39KDIGM Band NON-REACTIVE; 41KDIGG Band NON-REACTIVE; 41KDIGM Band NON-REACTIVE; 45KDIGG Band NON-REACTIVE; 58KDIGG Band NON-REACTIVE; 66KDIGG Band NON-REACTIVE; 93KDIGG Band NON-REACTIVE; Lyme Antibodies, WB IgG NEGATIVE (NEGATIVE); Lyme Antibodies, WB IgM NEGATIVE (NEGATIVE)
[2020-10-14 12:01] LABS: CMV IgG Antibody <0.60 U/mL; CMV IgM Antibody <30.00 AU/mL; EBV Virus Capsid Ag IgG Ab >750.00 U/mL
[2020-10-15 08:07] LABS: Parvovirus IgG 7.1 (<0.9); Parvovirus IgM 0.4 (<0.9)
== END 2020-10-11 13:30 | disposition home or self-care (01) | DRG 871 ==
LOC: ED 16:52 → 2W 21:07 → SUATTDRO 21:07 → 2W 22:04

== ENCOUNTER 2021-12-15 07:41 | Inpatient (IN) ==
[2021-12-15] MEDS ORDERED: hydrALAZINE HCL 20 MG/ML VIAL IV ONE (08:04)
[2021-12-15 08:40] LABS: Basophils # (auto) 0.02 K/uL (0-0.2); Basophils % (auto) 0.4 %; Eosinophils # (auto) 0.12 K/uL (0-0.5); Eosinophils % (auto) 2.6 %; Hematocrit (blood only) 45.7 % (42-52); Hemoglobin 15.5 g/dL (14.0-18.0); Immature Granulocytes # (auto) 0.01 K/uL (0.00-0.02); Immature Granulocytes % (auto) 0.2 %; Lymphocytes # (auto) 1.85 K/uL (1.2-3.4); Lymphocytes % (auto) 40.3 %; Mean Corpuscular Hemoglobin 31.8 pg (25-34); Mean Corpuscular Hgb Conc 33.9 g/dL (32-36); Mean Corpuscular Volume 93.8 fL (80-100); Mean Platelet Volume 11.2 fL (7.4-10.4); Monocytes # (auto) 0.45 K/uL (0.11-0.59); Monocytes % (auto) 9.8 %; Neutrophils # (auto) 2.14 K/uL (1.4-6.5); Neutrophils % (auto) 46.7 %; Platelet Count 227 K/uL (130-400); RDW Coefficient of Variation 12.6 % (11.5-14.5); RDW Standard Deviation 43.1 fL (36.4-46.3); Red Blood Count 4.87 M/uL (4.7-6.1); White Blood Count 4.59 K/uL (4.8-10.8)
[2021-12-15 09:05] LABS: Albumin Globulin Ratio 1.4 (0.9-2); Albumin Level 4.1 gm/dl (3.4-5.0); BUN Creatinine Ratio 15.8 (10-20); Bilirubin,Total 0.4 mg/dl (0.2-1.0); Creatinine Clr Calc Pharmacy 158.9 ml/min; Est GFR (African American) 127.7 ml/min; Est GFR (Non-African American) 110.2 ml/min; Potassium 3.9 mmol/L (3.5-5.1); Total Protein 7.1 gm/dl (6.0-8.3)
--- NOTE | 2021-12-15 10:17 | History & Physical Report ---
Date of Service December 15, 2021 Assessment & Plan (1) Neurogenic claudication due to lumbar spinal stenosis: Plan: Assessment lumbar spinal stenosis neuroforaminal nature with progressive neuro deficits. Plan at this time the patient's continued decline has significant limitation and discomfort with evidence of progressive motor deficit. I am recommending urgent lumbar decompression and fusion L5-S1. Risk benefits pros cons and alternatives were outlined in detail. History of Present Illness Chief Complaint: Back with bilateral leg pain and progressive foot drop on the right Primary Care Provider: Sorin Santo MD This is a 46-year-old male presents with progressive chronic bilateral leg pain with developing foot drop into the right lower extremity. This is been progressive over the past year. There was no specific trauma fall or event. He describes pain rating into the buttocks prickly down the right thigh into his great toe. It is markedly exacerbated with standing and walking. Is able to obtain relief with sitting or lying supine. He is undergone various trials of oral medications without relief. He has undergone 2 lumbar epidural injections that provided little to no long-term effect. Is undergone several sessions of physical therapy without reduction of his symptoms. Is markedly limiting his quality of life. 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 Allergies Allergy/AdvReac Type Severity Reaction Status Date / Time No Known Allergies Allergy Verified 12/15/21 08:37 Home Medications Medication Instructions Recorded Confirmed Type acetaminophen 500 mg tablet 1,000 mg PO Q6H PRN 10/06/20 12/15/21 History (Tylenol Extra Strength) interferon beta-1a (albumin) 44 0.5 ml SUBCUT 3XWK 10/07/20 12/15/21 History mcg/0.5 mL subcutaneous syringe (Rebif (with albumin)) amlodipine 2.5 mg tablet 2.5 mg PO PM 12/08/21 12/15/21 History Past Med/Surg History Medical History (Updated 12/15/21 @ 10:16 by Joce Lemus DO) Diverticular disease Encounter for pre-operative examination History of COVID-02 Nov 2020 [facility] hospitalized 5 days > pneumonia Hypertension Multiple kidney stones Multiple sclerosis Surgical History (Updated 12/08/21 @ 08:38 by Wendy Wilson RN) Fracture of distal fibula with repair History of ankle surgery RIGHT ANKLE ORIF History of colonoscopy History of lithotripsy x2 History of tooth extraction Hx of vasectomy Family History Other Family history of breast cancer in mother Social History Smoking Status: Never smoker Second Hand Exposure: No; Hx Alcohol Use: No Hx Substance Use: No Preferred Language: Setswana Communication Ability: Effective Operations Tech Required: No Beliefs That Will Affect Care: None Current Living Situation: Spouse Feels Safe at Home: Yes Assistive Devices: Contacts and Glasses Physical Exam Physical Exam: Patient is in obvious distress with standing. He does exhibit a 4-/5 right extensor hallucis longus and dorsiflexion compared to 5 or 5 on the left. Hip flexors quadriceps are symmetric 5/5. Is negative logroll. Deep tendon reflexes at the patellar region are symmetric and intact. There is sensory deficits to cold and light touch right greater than left. Results & Data ([facility]) Vital Signs (Past 12 Hours) Vital Signs Temp Pulse Pulse Resp BP BP Pulse Ox 12/15/21 10:00 70 16 139/101 H 96 12/15/21 08:50 138/97 12/15/21 08:25 142/103 H 12/15/21 08:11 73 18 155/108 H 96 12/15/21 07:43 36.5 C 77 18 166/113 H 97 Code Status & VTE Plan VTE Prophylaxis Plan VTE Prophylaxis will be ordered: Yes
--- NOTE | 2021-12-15 10:50 | Consultation ---
Date of Consultation December 15, 2021 Assessment & Plan (1) Neurogenic claudication due to lumbar spinal stenosis: (2) Hypertension: (3) Multiple sclerosis: This is a 46-year-old male who is an established [facility] [employer] who has significant past medical history of multiple sclerosis and hypertension who presents to ER secondary to chronic back pain, bilateral leg pain and weakness for the past 2 years. Neurogenic claudication due to lumbar spinal stenosis Admitting to [facility] Orthopedics Dr. Lemus recommending urgent lumbar decompression fusion [id number] Unknown surgery date at this time EKG and chest x-ray reviewed Patient able to perform equivalent of 4 METS activity without cardiovascular symptoms, okay to proceed with surgery Pain management per Dr. Lemus Hypertension BP elevated in ED, received 5 mg IV hydralazine Likely in setting of pain, anxiety of procedure and situation Give 1 g IV acetaminophen x1 now Monitor response, if remains elevated will add as needed medication Continue amlodipine 2.5 mg daily, consider increasing if consistently elevated postoperative MS No acute exacerbation Follows her see neurology Rebif SQ inj 3x/wk pt states he will remain off this week DVT ppx: SCD/TEDS, per ortho Dispo: admitting to med/surg PCP: Gal FULL CODE Pt was seen and examined in collaboration with Dr. Lucero, please see addendum Thank you for this consultation. We will follow the patient with you during their hospital stay. You can reach a member of the [facility] Hospitalist Team 07/06 via hospitalist role on tiger text. The chart was completed utilizing DashThis Speech voice recognition software. Grammatical errors, random word insertions, pronoun errors, and incomplete sentences are an occasional consequence of this system due to software limitations, ambient noise, and hardware issues. Any formal questions or concerns about the content, text, or information contained within the body of this dictation should be directly addressed to the provider for clarification. Supervising Physician Co-Signing Physician Notes 46-year-old male hx of multiple sclerosis on Rebif (3x/wk) and hypertension on small dose amlodipine, non smoker/does use alcohol/recreational drugs, presented to ED 12/15 with worsening of his chronic back pain a/w b/l leg pain and weak ness. He is a medical consult, admitted under orthospine. Has got covid-19 infection twice Sep, 2020 and Sep 2021. Has not got vaccine. Denies any fever/chills/ cough/ or other ros at this time. His BP seems to be elevated likely 2/2 to pain and anxiety of back Sx. c/w home meds Labs reviewed. Upon EXam GENERAL: Alert and oriented x3. NAD, on RA. HEENT: No pallor, no icterus. Pupils equal, round and reactive to light. Oral mucosa moist. NECK: No JVD, no neck masses. HEART: S1 and S2 heard. Regular rate and rhythm. No murmur, no gallop. RESPIRATORY SYSTEM: Normal AP diameter. No accessory muscle use. No wheezing, no crackles. ABDOMEN: Soft, bowel sounds present, nontender, no distention. CENTRAL NERVOUS SYSTEM: No facial droop. Speech is clear. Obeys simple commands. Moves extremities. EXTREMITIES: No edema, no erythema seen. I have seen and examined the patient and have discussed the case with the provider above. I agree with the assessment and plan as stated. History of Present Illness Requesting Physician: Dr. Lemus Reason for Consultation: Pre and postop medical management Attending Physician: Dr. 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 He was to undergo surgery today by Dr. Lemus; however surgery got canceled. Due to significant amount of pain he opted to present to ED. Currently pain is a 7 out of 10. At home he has been taking Tylenol and ibuprofen for pain relief. He has not been taking any narcotics. He denies any change in bowel or bladder function. He denies any recent illness, fever, chills, sweats, lightheadedness, dizziness, chest pain, shortness of breath, cough, nausea, vomiting, abdominal pain, dysuria, gross urgency or frequency with urination, melena or hematochezia. In regards to his MS he does subcu injections 3 times a week. His last injection was 12/12/2021. He follows with neurology down in [place]. His plan is to not undergo injections while hospitalized for the next week. He also history of hypertension controlled on amlodipine 2.5 mg daily. at bedside states he has been on this for a long time. She feels his blood pressure has been running high and that this could be increased. Patient thinks otherwise and feels it is okay. His blood pressure is elevated in ED but feels that related to anxiety due to upcoming procedure and pain. Allergies Allergy/AdvReac Type Severity Reaction Status Date / Time No Known Allergies Allergy Verified 12/15/21 08:37 Home Medications Medication Instructions Recorded Confirmed Type acetaminophen 500 mg tablet 1,000 mg PO Q6H PRN 10/06/20 12/15/21 History (Tylenol Extra Strength) interferon beta-1a (albumin) 44 0.5 ml SUBCUT 3XWK 10/07/20 12/15/21 History mcg/0.5 mL subcutaneous syringe (Rebif (with albumin)) amlodipine 2.5 mg tablet 2.5 mg PO PM 12/08/21 12/15/21 History Patient History Medical History (Updated 12/15/21 @ 10:52 by Elsa Peterson PA-C) Diverticular disease Encounter for pre-operative examination History of COVID-02 Nov 2020 [facility] hospitalized 5 days > pneumonia Hypertension Multiple kidney stones Multiple sclerosis Surgical History Fracture of distal fibula with repair History of ankle surgery RIGHT ANKLE ORIF History of colonoscopy History of lithotripsy x2 History of tooth extraction Hx of vasectomy Family History Other Family history of breast cancer in mother Social History (Updated 12/15/21 @ 10:48 by Elsa Peterson PA-C) Smoking Status: Never smoker Second Hand Exposure: No; Hx Alcohol Use: No Hx Substance Use: No Preferred Language: Greek Communication Ability: Effective Hydroelectric Systems Technician Required: No Beliefs That Will Affect Care: None Current Living Situation: Spouse Other Information That Helps Us Care for You: No Feels Safe at Home: Yes Safety Concerns: Feels Safe At This Time Assistive Devices: Contacts and Glasses Review of Systems Review of Systems: All systems reviewed & are unremarkable except as noted in HPI & below Physical Exam Physical Exam: Constitutional: WD/WN, vitals as above, NAD, sitting up in bed, pleasant, conversing easily Head: Normocephalic, Atraumatic Eyes: PERRL, conjunctivae normal, anicteric sclerae ENMT: external ear and nose normal, oropharynx normal Neck: trachea midline, no thyromegaly normal visual inspection Respiratory: normal respiratory effort, lungs clear to auscultation, no wheeze, rales, rhonchi. Normal insp/exp effort, no accessory muscle use Cardiovascular: RRR, no murmur, no edema Vessels: no JVD or carotid bruit Chest: normal inspection of chest Abdomen: normal bowel sounds, soft, nontender, no hepatosplenomegaly Musculoskeletal: no cyanosis or clubbing, AROM x 4 Skin: no rashes, warm and dry normal turgor Neurologic: PERRL, EOMI, accommodation nl, no face palsy, no dysarthria CN's II-XI intact bilaterally and moves all extremities Psychiatric: A+Ox3, euthymic affect Lymphatic: no cervical or axillary lymphadenopathy : deferred Results & Data ([facility]) Vital Signs (Past 12 Hours) Vital Signs Temp Pulse Pulse Resp BP BP Pulse Ox 12/15/21 10:00 70 16 139/101 H 96 12/15/21 08:50 138/97 12/15/21 08:25 142/103 H 12/15/21 08:11 73 18 155/108 H 96 12/15/21 07:43 36.5 C 77 18 166/113 H 97 Laboratory Results Short CBC 12/15/21 Range/Units 08:25 WBC 4.59 L (4.8-10.8) K/uL Hgb 15.5 (14.0-18.0) g/dL Hct 45.7 (42-52) % Plt Count 227 (130-400) K/uL BMP 12/15/21 08:25 Sodium 139 Potassium 3.9 Chloride 108 H Carbon Dioxide 25 BUN 12 Creatinine 0.76 Glucose 94 Calcium 9.0 Liver Function 12/15/21 Range/Units 08:25 Total Bilirubin 0.4 (0.2-1.0) mg/dl AST 29 (13-39) U/L ALT 60 H (7-52) U/L Alkaline Phosphatase 51 (34-104) U/L Albumin 4.1 (3.4-5.0) gm/dl Diagnostic Findings CXR 12/01/21: FINDINGS: Lung volumes are normal. Lungs are clear. Left lung airspace opacity on exam of October 10, 2020 has resolved. There is no pneumothorax or pleural effusion. Cardiac size is normal. Mediastinal contours are normal. There is no evidence for pulmonary edema. IMPRESSION: No acute cardiopulmonary findings. Echocardiogram 11/21/2021 revealed LVEF 55 to 59%, grade 1 diastolic dysfunction, aortic root borderline enlarged, no valvular heart disease, LV wall thickness mildly increased concentric Medications Administered Medication List Discontinued Medications Hydralazine HCl (Hydralazine Hcl 20 Mg/Ml Vial) 5 mg IV NOW ONE Stop: 12/15/21 08:05 Last Admin: 12/15/21 08:26 Dose: 5 mg Documented by: [id number] ECG Rate (beats per minute): 63 Rhythm: normal sinus
[2021-12-15] MEDS ORDERED: ACETAMINOPHEN 1,000 MG/100 ML VIAL IV STA (10:51)
[2021-12-15] MEDS ORDERED: ACETAMINOPHEN 1,000 MG/100 ML VIAL IV PRN (11:36)
[2021-12-15] MEDS ORDERED: NALOXONE HCL 0.4 MG/1 ML VIAL/CARP IV PRN (11:36)
[2021-12-15] MEDS ORDERED: HYDROmorphone INJ 0.5 MG/0.5 ML SYR IV PRN (11:36)
[2021-12-15] MEDS ORDERED: traMADol HCL 50 MG TABLET PO PRN (11:36)
[2021-12-15] MEDS ORDERED: ACETAMINOPHEN 500 MG TAB PO PRN (11:36)
[2021-12-15] MEDS ORDERED: HYDROmorphone INJ 1 MG/ML SYRINGE IV PRN (11:36)
[2021-12-15] MEDS ORDERED: PROMETHAZINE HCL 12.5 MG in SODIUM CHLORIDE 0.9% 50 ML IV PRN (11:36)
[2021-12-15] MEDS ORDERED: LORazepam 0.5 MG/1 ML VIAL IV PRN (11:36)
[2021-12-15] MEDS ORDERED: ONDANSETRON 4 MG OD TAB PO PRN (11:36)
[2021-12-15] MEDS ORDERED: ONDANSETRON INJ 2 MG/ML 2 ML VIAL IV PRN (11:36)
[2021-12-15] MEDS ORDERED: LORazepam 0.5 MG TAB PO PRN (11:36)
[2021-12-15] MEDS ORDERED: MAGNESIUM HYDROXIDE SUSP 30 ML UDC PO PRN (11:36)
[2021-12-15] MEDS ORDERED: ALUMINUM/MAGNESIUM SUSP 30 ML UDC PO PRN (11:36)
[2021-12-15] MEDS ORDERED: METOCLOPRAMIDE HCL INJ 5 MG/ML 2 ML VIAL IV PRN (11:36)
--- NOTE | 2021-12-15 11:39 | Emergency Department Note ---
Impression & Plan Lumbar disc disease with radiculopathy, Hypertension ED Provider Note CHIEF COMPLAINT: Back pain, leg weakness HISTORY OF PRESENT ILLNESS: This 46-year-old male patient presents to the emergency department with complaints of right greater than left lower extremity weakness, low back pain. He states he is scheduled for lumbar decompression surgery. Pt is having difficulty ambulating as his legs will become numb. He denies any bowel or bladder incontinence. Patient denies any recent falls or trauma to the low back. He denies fevers or surgical intervention recently. REVIEW OF SYSTEMS: A review of systems was performed with positives and pertinent negatives listed in the history of present illness. 10 systems were reviewed and are otherwise negative. ALLERGIES: see below MEDICATIONS: see below PMH: see below SOCIAL HISTORY: see below DDx: Musculoskeletal, disc herniation, fracture, metastatic disease, cord compression, discitis, sciatica, cauda equina, infection, aortic disease, renal colic, gastrointestinal, as well as other pathologies. PHYSICAL EXAM: Vital signs reviewed. General: Well-appearing 46 yo male, in no significant distress. HEENT: No scleral icterus, PERRLA, neck supple. Atraumatic. Cardiovascular: Regular rate and rhythm, no extra sounds. Pulmonary: Clear to auscultation bilaterally, normal work of breathing. Abdomen: Soft, nontender, nondistended, positive bowel sounds. Musculoskeletal: Atraumatic, no peripheral edema. Neurologic: Patient awake alert and oriented x 3, diminished DTR bilateral patella. 3/5 strength to RLE on straight leg raise, 4/5 strength to left lower extremity do straight leg raise with discomfort bilaterally skin: Warm, dry, no rash EMERGENCY DEPARTMENT COURSE/MDM: This patient was evaluated and appeared to be in no significant distress. Patient states his difficulty is particularly with ambulation any weakness of the right greater than left lower extremity with even just walking. Patient has previously been evaluated by Dr. Lemus with imaging studies performed. Patient was placed on the scarf gluer and noted to be markedly hypertensive. He had taken his amlodipine last evening. He was given 5 mg of IV hydralazine for blood pressure management to maintain n.p.o. status as the timeliness of surgical intervention is unclear. Dr. Lemus was consulted via phone and will evaluate the patient for further management. Patient and are aware of the plan and agreed. DISPOSITION: Admission Past Med/Surg History Medical History Diverticular disease Encounter for pre-operative examination History of COVID-02 Nov 2020 [facility] hospitalized 5 days > pneumonia Hypertension Multiple kidney stones Multiple sclerosis Surgical History Fracture of distal fibula with repair History of ankle surgery RIGHT ANKLE ORIF History of colonoscopy History of lithotripsy x2 History of tooth extraction Hx of vasectomy Family History Other Family history of breast cancer in mother Social History Smoking Status: Never smoker Second Hand Exposure: No; Hx Alcohol Use: No Hx Substance Use: No Preferred Language: Botswanan Communication Ability: Effective Circus Hand Required: No Beliefs That Will Affect Care: None Current Living Situation: Spouse Other Information That Helps Us Care for You: No Feels Safe at Home: Yes Safety Concerns: Feels Safe At This Time Assistive Devices: Glasses Allergies Allergies Allergy/AdvReac Type Severity Reaction Status Date / Time No Known Allergies Allergy Verified 12/17/21 08:17 Home Meds Home Medications Medication Instructions Recorded Confirmed acetaminophen 500 mg tablet 1,000 mg PO Q6H PRN 10/06/20 12/17/21 (Tylenol Extra Strength) interferon beta-1a (albumin) 44 0.5 ml SUBCUT 3XWK 10/07/20 12/17/21 mcg/0.5 mL subcutaneous syringe (Rebif (with albumin)) amlodipine 2.5 mg tablet 2.5 mg PO PM 12/08/21 12/17/21 Previous Rx's Medication Instructions Recorded oxycodone 5 mg tablet 5 mg PO Q6H PRN #30 tab 12/17/21 tramadol 50 mg tablet 50 mg PO Q6H PRN #30 tab 12/17/21 Results & Data (ED) Vital Signs Vital Signs - 24 hr 12/15/21 07:43 12/15/21 08:11 12/15/21 08:25 Temperature 36.5 C Temperature Source Temporal Artery Scan Pulse Rate 77 Pulse Rate [Finger] 73 Pulse Rhythm [Finger] Regular Pulse Strength [Finger] Normal Respiratory Rate 18 18 Respiratory Effort / Characteristics Non-Labored Spontaneous Non-Labored Respiratory Depth Normal Normal Respiratory Pattern Regular Blood Pressure 166/113 H Blood Pressure [Right Arm] 155/108 H 142/103 H Blood Pressure Mean 130 Blood Pressure Mean [Right Arm] 123 116 Blood Pressure Position Sitting Blood Pressure Position [Right Arm] Sitting Sitting Pulse Oximetry 97 96 Oxygen Delivery Method Room Air Room Air Sepsis Recent Fever Within 48 Hours No Sepsis New/Unexplained Change in Mental Status N/A Sepsis Action Taken by Nursing No Action Required 12/15/21 08:50 12/15/21 10:00 Temperature Temperature Source Pulse Rate Pulse Rate [Finger] 70 Pulse Rhythm [Finger] Regular Pulse Strength [Finger] Normal Respiratory Rate 16 Respiratory Effort / Characteristics Non-Labored Respiratory Depth Normal Respiratory Pattern Blood Pressure Blood Pressure [Right Arm] 138/97 139/101 H Blood Pressure Mean Blood Pressure Mean [Right Arm] 110 113 Blood Pressure Position Blood Pressure Position [Right Arm] Sitting Pulse Oximetry 96 Oxygen Delivery Method Room Air Sepsis Recent Fever Within 48 Hours Sepsis New/Unexplained Change in Mental Status Sepsis Action Taken by [facility] Medications Current Medication List: was personally reviewed by me Laboratory Data Attestation: I reviewed the patient's lab results. Result diagrams: 12/18/21 05:46 12/17/21 07:52 Lab Results 12/15/21 12/15/21 12/15/21 Range/Units 08:25 08:25 08:35 WBC 4.59 L (4.8-10.8) K/uL RBC 4.87 (4.7-6.1) M/uL Hgb 15.5 (14.0-18.0) g/dL Hct 45.7 (42-52) % MCV 93.8 (80-100) fL MCH 31.8 (25-34) pg MCHC 33.9 (32-36) g/dL RDW Std Deviation 43.1 (36.4-46.3) fL RDW Coeff of Ezra 12.6 (11.5-14.5) % Plt Count 227 (130-400) K/uL MPV 11.2 H (7.4-10.4) fL Immature Gran % (Auto) 0.2 % Neut % (Auto) 46.7 % Lymph % (Auto) 40.3 % [place] % (Auto) 9.8 % Eos % (Auto) 2.6 % Baso % (Auto) 0.4 % Neut # (Auto) 2.14 (1.4-6.5) K/uL Lymph # (Auto) 1.85 (1.2-3.4) K/uL [place] # (Auto) 0.45 (0.11-0.59) K/uL Eos # (Auto) 0.12 (0-0.5) K/uL Baso # (Auto) 0.02 (0-0.2) K/uL Immature Gran # (Auto) 0.01 (0.00-0.02) K/uL Sodium 139 (136-145) mmol/L Potassium 3.9 (3.5-5.1) mmol/L Chloride 108 H (98-107) mmol/L Carbon Dioxide 25 (21-32) mmol/L Anion Gap 6 (3-11) BUN 12 (6-23) mg/dl Creatinine 0.76 (0.6-1.4) mg/dl Est Cr Clr Drug Dosing 158.9 ml/min Est GFR ( Amer) 127.7 ml/min Est GFR (Non-Af Amer) 110.2 ml/min BUN/Creatinine Ratio 15.8 (10-20) Glucose 94 (70-99(Fasting)) mg/dl Calcium 9.0 (8.5-10.1) mg/dl Total Bilirubin 0.4 (0.2-1.0) mg/dl AST 29 (13-39) U/L ALT 60 H (7-52) U/L Alkaline Phosphatase 51 (34-104) U/L Total Protein 7.1 (6.0-8.3) gm/dl Albumin 4.1 (3.4-5.0) gm/dl Globulin 3.0 (2.5-4.0) gm/dl Albumin/Globulin Ratio 1.4 (0.9-2) SARS-CoV-2, RNA, NAAT NEGATIVE (NEGATIVE) Administered Medications Amlodipine Besylate (Amlodipine Besylate 5 Mg Tab) 2.5 mg PO PM SILVINA Stop: 01/14/22 20:59 Last Admin: 12/17/21 20:37 Dose: 2.5 mg Documented by: [id number] Admin: 12/16/21 21:25 Dose: 2.5 mg Documented by: [id number] Admin: 12/15/21 21:17 Dose: 2.5 mg Documented by: [id number] Ketorolac Tromethamine (Ketorolac 30 Mg/Ml Vial) 30 mg IV Q6H [facility] Stop: 12/18/21 06:31 Last Admin: 12/18/21 06:21 Dose: 30 mg Documented by: [id number] Admin: 12/18/21 00:28 Dose: 30 mg Documented by: [id number] Admin: 12/17/21 17:55 Dose: 30 mg Documented by: [id number] Admin: 12/17/21 12:35 Dose: 30 mg Documented by: [id number] Polyethylene Glycol (Polyethylene (Miralax) 17 Gm Pack) 17 gm PO Q6 [facility] Stop: 01/17/22 05:59 Last Admin: 12/18/21 06:20 Dose: 17 gm Documented by: [id number] Senna/Docusate Sodium (Docusate Sodium/Senna 50/8.6mg Tab) 2 tab PO HS [facility] Stop: 01/16/22 20:59 Last Admin: 12/17/21 20:37 Dose: 2 tab Documented by: [id number] Tramadol HCl (Tramadol Hcl 50 Mg Tablet) 50 - 100 mg PO Q4H PRN PRN Reason: Moderate-Severe pain & Pre PT Stop: 01/16/22 12:01 Last Admin: 12/18/21 00:29 Dose: 100 mg Documented by: [id number] Discontinued Medications Acetaminophen (Acetaminophen 500 Mg Tab) 1,000 mg PO Q8H PRN PRN Reason: MILD Pain Scale 1,2,3 & Pre PT Stop: 01/14/22 11:35 Last Admin: 12/16/21 19:50 Dose: 1,000 mg Documented by: [id number] Bupivacaine HCl (Bupivacaine 0.5 % 5 Mg/1 Ml Mpf 30ml Vial) Confirm Administered Dose 30 ml .ROUTE .STK-MED ONE Stop: 12/17/21 07:10 Last Admin: 12/17/21 09:56 Dose: 30 ml Documented by: [id number] Cefazolin Sodium (Cefazolin 250 Mg/Ml 1 Gm Vial) Confirm Administered Dose 1,000 mg .ROUTE .STK-MED ONE Stop: 12/17/21 07:10 Last Admin: 12/17/21 09:56 Dose: 1,000 mg Documented by: [id number] Epinephrine HCl (Epinephrine Inj 1 Mg/Ml Amp) Confirm Administered Dose 1 mg .ROUTE .STK-MED ONE Stop: 12/17/21 07:10 Last Admin: 12/17/21 09:57 Dose: 0.15 mg Documented by: [id number] Fentanyl Citrate (Fentanyl Citrate 100 Mcg/2 Ml Vial) 25 mcg IV Q5M PRN PRN Reason: PACU Use Only-Pain Stop: 12/17/21 16:36 Last Admin: 12/17/21 11:09 Dose: 25 mcg Documented by: [id number] Admin: 12/17/21 11:04 Dose: 25 mcg Documented by: [id number] Admin: 12/17/21 10:59 Dose: 25 mcg Documented by: [id number] Admin: 12/17/21 10:54 Dose: 25 mcg Documented by: [id number] Hydralazine HCl (Hydralazine Hcl 20 Mg/Ml Vial) 5 mg IV NOW ONE Stop: 12/15/21 08:05 Last Admin: 12/15/21 08:26 Dose: 5 mg Documented by: [id number] Hydromorphone HCl (Hydromorphone Inj 1 Mg/Ml Syringe) 0.25 mg IV Q5M PRN PRN Reason: PACU Use Only-Pain Stop: 12/17/21 16:36 Last Admin: 12/17/21 11:29 Dose: 0.25 mg Documented by: [id number] Admin: 12/17/21 11:24 Dose: 0.25 mg Documented by: [id number] Admin: 12/17/21 11:19 Dose: 0.25 mg Documented by: [id number] Admin: 12/17/21 11:14 Dose: 0.25 mg Documented by: [id number] Acetaminophen (Ofirmev) 1,000 mg in 100 mls @ 400 mls/hr IV NOW STA Stop: 12/15/21 11:05 Last Infusion: 12/15/21 11:44 Dose: 0 mls/hr Documented by: [id number] Admin: 12/15/21 10:59 Dose: 400 mls/hr Documented by: [id number] Cefazolin Sodium (Ancef 2000mg) 2,000 mg in 15 mls @ 3.75 mls/min IV PREOP SILVINA; Protocol Stop: 12/17/21 05:59 Last Admin: 12/17/21 09:05 Dose: 3.75 mls/min Documented by: [id number] Lactated Ringer's (Lr) 1,000 mls @ 75 mls/hr IV .[id number] SILVINA Stop: 01/14/22 11:35 Last Infusion: 12/17/21 12:08 Dose: 0 mls/hr Documented by: [id number] Admin: 12/17/21 00:00 Dose: 75 mls/hr Documented by: [id number] Infusion: 12/16/21 11:14 Dose: 0 mls/hr Documented by: [id number] Admin: 12/16/21 00:32 Dose: 75 mls/hr Documented by: [id number] Infusion: 12/16/21 00:32 Dose: 75 mls/hr Documented by: [id number] Admin: 12/15/21 11:44 Dose: 75 mls/hr Documented by: [id number] Cefazolin Sodium (Ancef 2000mg) 2,000 mg in 15 mls @ 3.75 mls/min IV Q8H SILVINA; Protocol Stop: 12/18/21 01:03 Last Admin: 12/18/21 00:28 Dose: 3.75 mls/min Documented by: [id number] Admin: 12/17/21 17:55 Dose: 3.75 mls/min Documented by: [id number] Lactated Ringer's (Lr) 1,000 mls @ 150 mls/hr IV .[id number] SILVINA Stop: 01/16/22 12:01 Last Infusion: 12/18/21 00:37 Dose: 0 mls/hr Documented by: [id number] Infusion: 12/18/21 00:37 Dose: 150 mls/hr Documented by: [id number] Admin: 12/17/21 18:30 Dose: 150 mls/hr Documented by: [id number] Infusion: 12/17/21 18:30 Dose: 150 mls/hr Documented by: [id number] Admin: 12/17/21 12:35 Dose: 150 mls/hr Documented by: [id number] Lorazepam (Lorazepam 0.5 Mg Tab) 0.5 mg PO Q8H PRN PRN Reason: sedation/anxiety Stop: 01/14/22 11:35 Last Admin: 12/16/21 19:50 Dose: 0.5 mg Documented by: [id number] Miscellaneous ( Floseal Hemostatic Matrix 10ml) 20 ml TOP ONCE ONE Stop: 12/17/21 09:42 Last Admin: 12/17/21 10:25 Dose: 12 ml Documented by: [id number] Ondansetron HCl (Ondansetron Inj 2 Mg/Ml 2 Ml Vial) 4 mg IV ONCE PRN PRN Reason: PACU Use Only-Nausea/Vomiting Stop: 12/17/21 16:37 Last Admin: 12/17/21 10:54 Dose: 4 mg Documented by: [id number] Oxycodone HCl (Oxycodone Hcl Ir 5 Mg Tab (Immediate Release)) 5 - 10 mg PO Q4H PRN PRN Reason: mod to severe pain Stop: 12/29/21 11:35 Last Admin: 12/16/21 11:04 Dose: 10 mg Documented by: [id number] Admin: 12/15/21 18:15 Dose: 10 mg Documented by: [id number] Admin: 12/15/21 13:03 Dose: 10 mg Documented by: [id number] Promethazine HCl (Promethazine Hcl Inj 25 Mg/Ml 1 Ml Vial) Confirm Administered Dose 25 mg .ROUTE .STK-MED ONE Stop: 12/17/21 11:22 Last Admin: 12/17/21 11:43 Dose: 6.25 mg Documented by: [id number] Sodium Chloride (Sodium Chloride 0.9% 50 Ml Bag) Confirm Administered Dose 50 ml .ROUTE .STK-MED ONE Stop: 12/17/21 11:24 Last Admin: 12/17/21 12:31 Dose: Not Given Documented by: [id number] Blood Pressure Blood Pressure Findings: Elevated blood pressure Blood Pressure Disposition: elevated BP felt to be situational Discharge Plan Visit Data Chief Complaint: Back Injury/Pain Stated Complaint: BACK PAIN,NUMBNESS IN LEG ED Provider: Neli Marcial Discharge Problem: Lumbar disc disease with radiculopathy, Hypertension Patient Disposition: Admitted As Inpatient Condition: Fair Discharge Instructions Interventions: ED Discharge Assessment Last Done: 12/15/21 11:27 Discharge Problem: Hypertension Qualifiers: Hypertension type: primary hypertension Qualified Code(s): I10 - Essential (primary) hypertension
[2021-12-15] MEDS: LACTATED RINGER'S 1,000 ML IV SCH (11:44)
[2021-12-15] MEDS: oxyCODONE HCL IR 5 MG TAB (IMMEDIATE RELEASE) PO PRN ×2 (13:03→18:15)
[2021-12-15] MEDS: amLODIPine BESYLATE 5 MG TAB PO SCH (21:17)
[2021-12-16] MEDS: LACTATED RINGER'S 1,000 ML IV SCH (00:32)
[2021-12-16] MEDS ORDERED: ceFAZolin 2000MG 2,000 MG/15 ML SYR IV SCH (06:00)
--- NOTE | 2021-12-16 09:56 | Orthopedic Progress Note ---
Date of Service December 16, 2021 Assessment & Plan (1) Neurogenic claudication due to lumbar spinal stenosis: Plan: Assessment lumbar spinal stenosis with neuroforaminal compression of the exiting nerve roots and subsequent radiculopathy and developing foot drop. This point he is demonstrating progressive neuro deficit. I will make him n.p.o. after midnight plan for surgery in the a.m. Concerns he develops a permanent strength deficits and foot drop if we do not intervene very quickly. Admission and Anticipated Discharge Date Admission Date: December 15, 2021 Subjective Patient continues no significant back and bilateral leg pain with standing and ambulation. I did ask him to ambulate the halls after the evening while he awaited approval for surgery. He states he is able to do so but notes a foot drop affecting his right foot very quickly within a few feet of walking. Physical Exam Physical Exam: On exam is most comfortable in bed. He is sensory is intact to lower extremities. Again unable to elicit 4-/5 right dorsiflexion extensor hallucis longus compared to five five on the left. Results & Data ([facility]) Vital Signs (Past 12 Hours) Vital Signs Temp Pulse Resp BP Pulse Ox 12/16/21 07:31 36.8 C 69 16 135/89 95
[2021-12-16] MEDS: oxyCODONE HCL IR 5 MG TAB (IMMEDIATE RELEASE) PO PRN (11:04)
--- NOTE | 2021-12-16 16:06 | Hospitalist Progress Note ---
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 Neurogenic claudication due to lumbar spinal stenosis Orthopedics Dr. Lemus recommending urgent lumbar decompression fusion L5-S1 - planned for 2/2 EKG and chest x-ray unremarkable Patient able to perform equivalent of 4 METS activity without cardiovascular symptoms, okay to proceed with surgery Pain management per Dr. Lemus Hypertension BP elevated in ED, received 5 mg IV hydralazine Likely in setting of pain, anxiety of procedure and situation BP remains variable however mostly controlled Continue amlodipine 2.5 mg daily, consider increasing if consistently elevated postoperative MS No acute exacerbation Follows w/ [place] neurology Rebif SQ inj 3x/wk pt states he will remain off this week DVT ppx: SCD/TEDS, per ortho Dispo: pending PCP: Gal Thank you for this consultation. We will follow the patient with you during their hospital stay. You can reach a member of the [facility] Hospitalist Team 07/06 via hospitalist role on tiger text. Admission and Anticipated Discharge Date Admission Date: December 15, 2021 Supervising Physician Co-Signing Physician Notes 46-year-old male hx of multiple sclerosis on Rebif (3x/wk) and hypertension on small dose amlodipine, non smoker/does use alcohol/recreational drugs, presented to ED 12/15 with worsening of his chronic back pain a/w b/l leg pain and weakness. He is a medical consult, admitted under orthospine. Has got covid-19 infection twice Sep, 2020 and Sep 2021. Has not got vaccine. Denies any fever/chills/ cough/ or other ros at this time. His BP seems to be elevated likely 2/2 to pain and anxiety of back Sx. c/w home meds Awaiting Surgery tomorrow. NPO midnight. PT/OT/DVT px/pain meds per orthospine. Upon EXam GENERAL: Alert and oriented x3. NAD, on RA. HEENT: No pallor, no icterus. Pupils equal, round and reactive to light. Oral mucosa moist. NECK: No JVD, no neck masses. HEART: S1 and S2 heard. Regular rate and rhythm. No murmur, no gallop. RESPIRATORY SYSTEM: Normal AP diameter. No accessory muscle use. No wheezing, no crackles. ABDOMEN: Soft, bowel sounds present, nontender, no distention. CENTRAL NERVOUS SYSTEM: No facial droop. Speech is clear. Obeys simple commands. Moves extremities. EXTREMITIES: No edema, no erythema seen. I have seen and examined the patient and have discussed the case with the provider above. I agree with the assessment and plan as stated. Subjective Patient seen and examined. Follow-up for medical management for planned back surgery tomorrow. Neurogenic claudication due to lumbar spinal stenosis. Patient doing well, offers no complaints. Lumbar back pain present that radiates down both legs and exertional left foot drop unchanged from recent baseline. No chest pain or shortness of breath. Denies abdominal pain or nausea. Review of Systems Review of Systems: ROS per HPI, all other systems reviewed and negative Physical Exam Constitutional: WD/WN, vitals as above no acute distress Respiratory: normal respiratory effort, lungs clear to auscultation Cardiovascular: Rate/Rhythm: regular rate and regular rhythm Vessels: normal peripheral pulses Extremities: no edema Gastrointestinal (Abdomen): Percussion/Palpation: abdomen soft; abdomen nontender Musculoskeletal: Strength strong and equal BLE Skin: no rashes, warm and dry Neurologic: no focal motor deficits Psychiatric: A+Ox3, euthymic affect Results & Data Results & Data ([facility]) Vital Signs (Past 12 Hours) Vital Signs Temp Pulse Resp BP Pulse Ox 12/16/21 15:22 36.5 C 78 18 151/101 H 95 12/16/21 07:31 36.8 C 69 16 135/89 95
[2021-12-16] MEDS: amLODIPine BESYLATE 5 MG TAB PO SCH (21:25)
[2021-12-17] MEDS ORDERED: SUGAMMADEX SODIUM 200 MG/2 ML VIAL IV ONE (05:05)
[2021-12-17] MEDS ORDERED: DEXAMETHASONE SOD INJ 4 MG/ML VIAL IV ONE (05:05)
[2021-12-17] MEDS ORDERED: ceFAZolin 330 MG/ML 1 GM VIAL IV ONE (05:05)
[2021-12-17] MEDS ORDERED: ONDANSETRON INJ 2 MG/ML 2 ML VIAL IV ONE (05:05)
[2021-12-17] MEDS ORDERED: ePHEDrine sulfate 50 MG/ML SYR IV ONE (05:05)
[2021-12-17] MEDS ORDERED: PROPOFOL IV EMULSION 10 MG/ML 20 ML VIAL IV ONE (05:05)
[2021-12-17] MEDS ORDERED: LIDOCAINE 2% 2 ML VIAL/AMP(20MG/ML) INFIL ONE (05:05)
[2021-12-17] MEDS ORDERED: ceFAZolin 2,000 MG/15 ML IV PUSH IV ONE (05:05)
[2021-12-17] MEDS ORDERED: ROCURONIUM BROMIDE 10 MG/ML 5 ML VIAL IV ONE (05:05)
[2021-12-17] MEDS ORDERED: fentaNYL citrate 100 MCG/2 ML VIAL IV ONE (05:05)
[2021-12-17] MEDS ORDERED: HYDROmorphone INJ 2 MG/ML SYR/VIAL IV ONE (05:05)
[2021-12-17] MEDS ORDERED: MIDAZOLAM HCL 1 MG/ML 2ML VIAL IV ONE (05:05)
[2021-12-17] MEDS ORDERED: BUPIVACAINE 0.5 % 5 MG/1 ML MPF 30ML VIAL ONE (07:09)
[2021-12-17] MEDS ORDERED: ceFAZolin 330 MG/ML 1 GM VIAL ONE (07:09)
[2021-12-17] MEDS ORDERED: EPINEPHrine INJ 1 MG/ML AMP ONE (07:09)
--- NOTE | 2021-12-17 07:34 | Anesthesiology Consultation ---
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 History Surgery Operation Date: 12/17/21 08:50 Proposed Procedures p L5-S1 Lumbar Decompression Fusion - Joce Lemus DO Height/Weight Height: 6 ft 1 in Weight: 108.9 kg Allergies Allergy/AdvReac Type Severity Reaction Status Date / Time No Known Allergies Allergy Verified 12/15/21 08:37 Medications Home Medications Medication Instructions Recorded Confirmed Last Taken acetaminophen 500 mg tablet 1,000 mg PO Q6H PRN 10/06/20 12/15/21 10/06/20 03:00 (Tylenol Extra Strength) 1000 mg interferon beta-1a (albumin) 44 0.5 ml SUBCUT 3XWK 10/07/20 12/15/21 12/12/21 mcg/0.5 mL subcutaneous syringe (Rebif (with albumin)) amlodipine 2.5 mg tablet 2.5 mg PO PM 12/08/21 12/15/21 12/15/21 Active Medications Generic Name Dose Route Start Last Admin Trade Name Freq PRN Reason Stop Dose Admin Acetaminophen 1,000 mg 12/15/21 11:36 12/16/21 19:50 Acetaminophen 500 Mg Tab PO 01/14/22 11:35 1,000 mg Q8H PRN Administration MILD Pain Scale 1,2,3 & Pre PT Amlodipine Besylate 2.5 mg 12/15/21 21:00 12/16/21 21:25 Amlodipine Besylate 5 Mg Tab PO 01/14/22 20:59 2.5 mg PM SILVINA Administration Lactated Ringer's 1,000 mls @ 75 mls/hr 12/15/21 11:36 12/17/21 00:00 Lr IV 01/14/22 11:35 75 mls/hr .[id number] SILVINA Administration Lorazepam 0.5 mg 12/15/21 11:36 12/16/21 19:50 Lorazepam 0.5 Mg Tab PO 01/14/22 11:35 0.5 mg Q8H PRN Administration sedation/anxiety Oxycodone HCl 5 - 10 mg 12/15/21 11:36 12/16/21 11:04 Oxycodone Hcl Ir 5 Mg Tab (Immediate Release) PO 12/29/21 11:35 10 mg Q4H PRN Administration mod to severe pain NPO Date Last Intake of Fluids: 12/16/21 Time Last Intake of Fluids: 23:59 Date Last Intake of Solids: 12/16/21 Time Last Intake of Solids: 23:59 Past Medical History Medical History Diverticular disease Encounter for pre-operative examination History of COVID-02 Nov 2020 [facility] hospitalized 5 days > pneumonia Hypertension Multiple kidney stones Multiple sclerosis Past Family History Family History Other Family history of breast cancer in mother Past Surgical History Surgical History Fracture of distal fibula with repair History of ankle surgery RIGHT ANKLE ORIF History of colonoscopy History of lithotripsy x2 History of tooth extraction Hx of vasectomy Social History Smoking Status: Never smoker Hx Alcohol Use: No Hx Substance Use: No substance use type: does not use Physical Exam Vital Signs Last Vital Signs Temp 97.7 F 12/17/21 05:45 Pulse 73 12/17/21 05:45 Resp 16 12/17/21 05:45 BP 137/88 12/17/21 05:45 Pulse Ox 95 12/16/21 22:20 Testing Laboratory Results 12/15/21 08:25 12/15/21 08:25 Blood Type A Positive 12/16/21 15:32 Antibody Screen NEGATIVE 12/16/21 15:32 Laboratory Tests 12/15/21 08:35 SARS-CoV-2, RNA, NAAT NEGATIVE Electrocardiogram Date: 12/01/21 Normal sinus rhythm, rate 63 bpm Diffuse Minor Nonspecific ST abnormality Abnormal ECG When compared with ECG of 10-OCT-2020 16:38, Nonspecific T wave abnormality no longer evident in Anterior leads Confirmed by Nimesh Jay ([id number]) on 12/01/2021 2:40:14 PM Chest X-Ray Date: 12/01/21 Findings: + NAD Echocardiogram Date: 11/21/21 LV cavity size is normal LV wall thickness is mildly increased LV wall motion is normal EF 55-59% LV diastolic function is mildly abnormal (grade 1) There is no valvular disease The aortic root is borderline enlarged
[2021-12-17 08:20] LABS: Hematocrit (blood only) 46.2 % (42-52); Hemoglobin 15.9 g/dL (14.0-18.0); Mean Corpuscular Hemoglobin 31.9 pg (25-34); Mean Corpuscular Hgb Conc 34.4 g/dL (32-36); Mean Corpuscular Volume 92.8 fL (80-100); Mean Platelet Volume 10.9 fL (7.4-10.4); Platelet Count 211 K/uL (130-400); RDW Coefficient of Variation 12.6 % (11.5-14.5); RDW Standard Deviation 42.6 fL (36.4-46.3); Red Blood Count 4.98 M/uL (4.7-6.1); White Blood Count 5.97 K/uL (4.8-10.8)
--- NOTE | 2021-12-17 08:25 | History & Physical Bridge Note ---
Date of Service December 17, 2021 History & Physical Bridge Note I have examined the patient, reviewed the History & Physical and in the interval since the performance of the History & Physical I have noted the following changes of clinical significance: no changes noted
[2021-12-17] MEDS ORDERED: ePHEDrine sulfate 50 MG/ML AMP IV PRN (08:36)
[2021-12-17] MEDS ORDERED: ATROPINE SULFATE 0.1 MG/ML 10ML SYR IV PRN (08:36)
[2021-12-17] MEDS ORDERED: ONDANSETRON INJ 2 MG/ML 2 ML VIAL IV PRN ×2 (08:36→12:02)
[2021-12-17 08:43] LABS: BUN Creatinine Ratio 11.8 (10-20); Calcium 9.4 mg/dl (8.5-10.1); Creatinine Clr Calc Pharmacy 158.9 ml/min; Est GFR (African American) 127.7 ml/min; Est GFR (Non-African American) 110.2 ml/min
[2021-12-17] MEDS ORDERED: FLOSEAL HEMOSTATIC MATRIX 10ML TOP ONE (09:41)
--- NOTE | 2021-12-17 10:35 | Operative Report ---
Post Operative Report Pre & Post Diagnosis Operation Date: 12/17/21 08:50 Pre-Op Diagnosis: Neurogenic Claudication due to Lumbar Spinal Stenosis Post-Op Diagnosis: Neurogenic Claudication due to Lumbar Spinal Stenosis I identified the patient and participated in the time-out.: Yes Procedure Operation Date: 12/17/21 08:50 Actual Procedures 1. #1 lumbar decompression bilaterally facetectomies and foraminotomies L4-5 L5-S1. #2 posterior spinal fusion L5-S1. #3 placement posterior instrumentation L5-S1. #4 interbody fusion L5-S1. #5 placement of titanium cage 14 x 26 mm at L5-S1. #6 placement locally harvested morselized autograft in the posterior gutters per #7 placement of I factor combined with Vitoss in the interbody space and posterior lateral gutters. Surgeon Joce Lemus, DO Net Finisher Kalyn Campbell Estimated Blood Loss 100 Findings See Below Patient is 6 foot 1 inches tall weighing over 100 kg with a BMI in excess of 31. Patient's body habitus did contribute to significant technical difficulty requiring her deepest retractors and longer instruments in order to perform his procedure. This at least 50% increased operative time. Specimens none Indications This is a 46-year-old male who presents with marked decline in status developing foot drop and is here for urgent lumbar decompression and fusion at L5-S1. Description of Procedure Patient was met with identified informed consent obtained. Patient was then taken to the operative suite underwent ablation placed in a prone position on the Asim table top of the Meliton frame. All bony prominences well-padded eyes inspected to ensure no external pressure placed upon the. This point the lumbar spine was prepped and draped in a normal sterile fashion. Sharp dissection with the assistance of Bovie cautery performed down to and exposing the lamina and transverse processes of L5 and S1. From caudal cephalad fashion complete laminectomy L5 partial laminectomy of L4 was performed including bilateral medial facetectomies and foraminotomies addressing all neural compre ssion. Pedicle screws then placed in L5 and S1 levels bilaterally with assistance of fluoroscopy and appropriate sized arndy placed. By way of a transforaminal approach on the right complete discectomy of L5-S1 was performed endplates curetted to subcortically bone and a 14 x 26 mm titanium cage filled with I factor tapped in position. The rods then compressed locked into final position bilaterally. The transverse processes of L5 and sacral ala burred to subcortical bleeding bone. I factor combined with V toss was placed in the posterior gutters. 15 round EBEN drain inserted. The incision was then closed with 1 Vicryl to fascia 2-0 Vicryl subcutaneously and 4 Monocryl for final skin closure. Steri-Strip Steri-Strips placed. Patient will continue PACU stable condition. Please note spinal cord monitoring was utilized at procedure no changes noted. Lastly Kalyn Campbell was present at the entire surgeon while the patient positioning complex portions of the surgery and fascial closure. I attest to the content of the Intraoperative Record and any orders documented therein. Any exceptions are noted below.
[2021-12-17] MEDS: fentaNYL citrate 100 MCG/2 ML VIAL IV PRN ×4 (10:54→11:09)
[2021-12-17] MEDS: HYDROmorphone INJ 1 MG/ML SYRINGE IV PRN ×4 (11:14→11:29)
[2021-12-17] MEDS ORDERED: PROMETHAZINE HCL 6.25 MG in SODIUM CHLORIDE 0.9% 50 ML IV STA (11:15)
[2021-12-17] MEDS ORDERED: PROMETHAZINE HCL INJ 25 MG/ML 1 ML VIAL ONE (11:21)
[2021-12-17] MEDS ORDERED: SODIUM CHLORIDE 0.9% 50 ML BAG ONE (11:23)
--- NOTE | 2021-12-17 11:38 | Fluoroscopy Report ---
FL lumbar spine 2-3V CLINICAL HISTORY: L5-S1 decompression and fusion COMPARISON STUDY: None. FLUOROSCOPY TIME: 25 seconds. FINDINGS: 2 fluoroscopic spot images of the lower lumbar spine demonstrate posterior decompression an d fusion at L5-S1 with pedicle screws and rods. The hardware appears intact. A disc spacer is in plac e. IMPRESSION: Fluoroscopic assistance provided for L5-S1 posterior decompression and fusion ACT 112: Negative or not required by law. Electronically signed by: Alex Erwin M.D. 12/17/2021 11:37 AM
[2021-12-17] MEDS ORDERED: ACETAMINOPHEN 1,000 MG/100 ML VIAL IV PRN (12:02)
[2021-12-17] MEDS ORDERED: LORazepam 0.5 MG/1 ML VIAL IV PRN (12:02)
[2021-12-17] MEDS ORDERED: HYDROmorphone INJ 1 MG/ML SYRINGE IV PRN (12:02)
[2021-12-17] MEDS ORDERED: oxyCODONE HCL IR 5 MG TAB (IMMEDIATE RELEASE) PO PRN (12:02)
[2021-12-17] MEDS ORDERED: ALUMINUM/MAGNESIUM SUSP 30 ML UDC PO PRN (12:02)
[2021-12-17] MEDS ORDERED: METOCLOPRAMIDE HCL INJ 5 MG/ML 2 ML VIAL IV PRN (12:02)
[2021-12-17] MEDS ORDERED: SOD PHOSPHATE/SOD BIPHOSPHATE ENEMA 132 ML BTL PR PRN (12:02)
[2021-12-17] MEDS ORDERED: bisacodyL 10 MG SUPP PR PRN (12:02)
[2021-12-17] MEDS ORDERED: FAMOTIDINE 20 MG TAB PO PRN (12:02)
[2021-12-17] MEDS ORDERED: hydrOXYzine HCl 25 MG TAB PO PRN (12:02)
[2021-12-17] MEDS ORDERED: DO NOT ADMINISTER FLU VACCINE PRN (12:02)
[2021-12-17] MEDS ORDERED: ONDANSETRON 4 MG OD TAB PO PRN (12:02)
[2021-12-17] MEDS ORDERED: PROMETHAZINE HCL 12.5 MG in SODIUM CHLORIDE 0.9% 50 ML IV PRN (12:02)
[2021-12-17] MEDS ORDERED: DO NOT ADMINISTER PNEUMOCOCCAL VACCINE PRN (12:02)
[2021-12-17] MEDS ORDERED: MAGNESIUM HYDROXIDE SUSP 30 ML UDC PO PRN (12:02)
[2021-12-17] MEDS ORDERED: LORazepam 0.5 MG TAB PO PRN (12:02)
[2021-12-17] MEDS ORDERED: HYDROmorphone INJ 0.5 MG/0.5 ML SYR IV PRN (12:02)
[2021-12-17] MEDS ORDERED: diphenhydrAMINE Capsule 25 MG CAP PO PRN (12:02)
[2021-12-17] MEDS ORDERED: NALOXONE HCL 0.4 MG/1 ML VIAL/CARP IV PRN (12:02)
[2021-12-17] MEDS: LACTATED RINGER'S 1,000 ML IV SCH ×3 (12:35→18:30)
[2021-12-17] MEDS: KETOROLAC 30 MG/ML VIAL IV SCH ×2 (12:35→17:55)
--- NOTE | 2021-12-17 14:20 | Anesthesiology Progress Note ---
Date of Service December 17, 2021 Anesthesia Post Procedure Vital Signs Vital Signs: Temp Pulse Resp BP BP Pulse Ox 12/17/21 14:04 36.4 C L 81 16 118/78 96 12/17/21 13:02 36.5 C 68 16 112/71 95 12/17/21 12:32 36.4 C L 82 16 110/70 94 12/17/21 12:02 37.1 C 68 16 119/79 94 12/17/21 11:45 36.4 C L 71 16 115/71 96 12/17/21 11:35 36.4 C L 69 18 115/72 96 12/17/21 11:25 84 18 122/77 97 12/17/21 11:15 88 18 125/75 94 12/17/21 11:05 88 18 121/81 98 12/17/21 10:55 93 H 20 127/93 98 12/17/21 10:49 36.4 C L 101 H 20 144/94 H 96 12/17/21 08:18 37 C 80 20 156/106 H 96 12/17/21 07:59 36.8 C 74 16 156/114 H 97 12/17/21 05:45 36.5 C 73 16 137/88 12/16/21 22:20 76 16 147/94 H 95 12/16/21 21:21 160/104 H 12/16/21 15:22 36.5 C 78 18 151/101 H 95 Pain Intensity Back: Pain Intensity: 6 Transfer of Care Handoff Completed per policy Notes Mental Status: alert / awake / arousable and participated in evaluation Patient Amnestic to Procedure: Yes Nausea / Vomiting: adequately controlled Pain: adequately controlled Airway Patency, RR, SpO2: stable & adequate BP & HR: stable & adequate Hydration State: stable & adequate Anesthetic Complications: no major complications apparent and Pt Satisfied with anesthetic care
--- NOTE | 2021-12-17 15:59 | Hospitalist Progress Note ---
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 Neurogenic claudication due to lumbar spinal stenosis - POD#0 L5-S1 decompression and fusion by Dr. Lemus - activity and wound care orders as per ortho - pain control with bowel regimen - PT/OT - monitor H/H for acute blood loss anemia and transfuse blood products PRN -Preop Hgb 15.9 -EBL 100 cc Hypertension BP elevated in ED, received 5 mg IV hydralazine Likely in setting of pain, anxiety of procedure and situation BP improved Continue amlodipine 2.5 mg daily MS No acute exacerbation Follows w/ [place] [facility] Rebif SQ inj 3x/wk pt states he will remain off this week DVT ppx: SCD/TEDS, per ortho Dispo: pending PCP: Gal Thank you for this consultation. We will follow the patient with you during their hospital stay. You can reach a member of the [facility] Hospitalist Team 07/06 via hospitalist role on tiger text. Admission and Anticipated Discharge Date Admission Date: December 15, 2021 Supervising Physician Co-Signing Physician Notes Patient seen and examined after OR Agree with findings and plans as detailed by Aixa RYAN Subjective Patient seen and examined. Follow-up for medical management, s/p L5-S1 lumbar decompression and fusion. Patient seen postoperatively, somewhat groggy. However arouses easily to verbal stimuli. Reports pain is well controlled. Denies chest pain shortness of breath. No abdominal pain or nausea. Review of Systems Review of Systems: ROS per HPI, all other systems reviewed and negative Physical Exam Constitutional: WD/WN, vitals as above no acute distress Respiratory: normal respiratory effort, lungs clear to auscultation Cardiovascular: Rate/Rhythm: regular rate and regular rhythm Vessels: normal peripheral pulses Extremities: no edema Gastrointestinal (Abdomen): Percussion/Palpation: abdomen soft; abdomen nontender Musculoskeletal: S/p back surgery, strength strong and equal BLE Skin: no rashes, warm and dry Neurologic: no focal motor deficits Psychiatric: Orientation: oriented x 3; + not alert (Somewhat groggy however arouses easily to verbal stimuli) Results & Data Results & Data ([facility]) Vital Signs (Past 12 Hours) Vital Signs Temp Pulse Resp BP Pulse Ox 12/17/21 15:43 36.5 C 80 18 122/81 95 12/17/21 14:04 36.4 C L 81 16 118/78 96 12/17/21 13:02 36.5 C 68 16 112/71 95 12/17/21 12:32 36.4 C L 82 16 110/70 94 12/17/21 12:02 37.1 C 68 16 119/79 94 12/17/21 11:45 36.4 C L 71 16 115/71 96 12/17/21 11:35 36.4 C L 69 18 115/72 96 12/17/21 11:25 84 18 122/77 97 12/17/21 11:15 88 18 125/75 94 12/17/21 11:05 88 18 121/81 98 12/17/21 10:55 93 H 20 127/93 98 12/17/21 10:49 36.4 C L 101 H 20 144/94 H 96 12/17/21 08:18 37 C 80 20 156/106 H 96 12/17/21 07:59 36.8 C 74 16 156/114 H 97 12/17/21 05:45 36.5 C 73 16 137/88 Laboratory Results Short CBC 12/17/21 Range/Units 07:52 WBC 5.97 (4.8-10.8) K/uL Hgb 15.9 (14.0-18.0) g/dL Hct 46.2 (42-52) % Plt Count 211 (130-400) K/uL BMP 12/17/21 07:52 Sodium 138 Potassium 4.0 Chloride 106 Carbon Dioxide 25 BUN 9 Creatinine 0.76 Glucose 93 Calcium 9.4
[2021-12-17] MEDS: ceFAZolin 2000MG 2,000 MG/15 ML SYR IV SCH (17:55)
[2021-12-17] MEDS: DOCUSATE SODIUM/SENNA 50/8.6MG TAB PO SCH (20:37)
[2021-12-17] MEDS: amLODIPine BESYLATE 5 MG TAB PO SCH (20:37)
[2021-12-18] MEDS: ceFAZolin 2000MG 2,000 MG/15 ML SYR IV SCH (00:28)
[2021-12-18] MEDS: KETOROLAC 30 MG/ML VIAL IV SCH ×2 (00:28→06:21)
[2021-12-18] MEDS: traMADol HCL 50 MG TABLET PO PRN ×4 (00:29→17:41)
[2021-12-18 06:17] LABS: Basophils # (auto) 0.01 K/uL (0-0.2); Basophils % (auto) 0.1 %; Eosinophils # (auto) 0.01 K/uL (0-0.5); Eosinophils % (auto) 0.1 %; Hematocrit (blood only) 39.8 % (42-52); Hemoglobin 13.5 g/dL (14.0-18.0); Immature Granulocytes # (auto) 0.02 K/uL (0.00-0.02); Immature Granulocytes % (auto) 0.2 %; Lymphocytes # (auto) 1.69 K/uL (1.2-3.4); Lymphocytes % (auto) 15.5 %; Mean Corpuscular Hemoglobin 31.3 pg (25-34); Mean Corpuscular Hgb Conc 33.9 g/dL (32-36); Mean Corpuscular Volume 92.3 fL (80-100); Mean Platelet Volume 11.1 fL (7.4-10.4); Monocytes # (auto) 1.09 K/uL (0.11-0.59); Neutrophils # (auto) 8.06 K/uL (1.4-6.5); Neutrophils % (auto) 74.1 %; Platelet Count 197 K/uL (130-400); RDW Coefficient of Variation 12.4 % (11.5-14.5); RDW Standard Deviation 42.1 fL (36.4-46.3); Red Blood Count 4.31 M/uL (4.7-6.1); White Blood Count 10.88 K/uL (4.8-10.8)
[2021-12-18] MEDS: POLYETHYLENE (MIRALAX) 17 GM PACK PO SCH ×3 (06:20→17:45)
[2021-12-18 07:14] LABS: BUN Creatinine Ratio 18.3 (10-20); Calcium 8.6 mg/dl (8.5-10.1); Est GFR (African American) 131.3 ml/min; Est GFR (Non-African American) 113.3 ml/min; Potassium 3.9 mmol/L (3.5-5.1)
[2021-12-18] MEDS: dexAMETHasone 6 MG in SYRINGE 0 ML IV SCH (08:02)
[2021-12-18] MEDS: ACETAMINOPHEN 500 MG TAB PO PRN ×2 (08:11→16:42)
--- NOTE | 2021-12-18 10:53 | Hospitalist Progress Note ---
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 Neurogenic claudication due to lumbar spinal stenosis POD#1 L5-S1 decompression and fusion by Dr. Lemus Activity and wound care orders as per ortho Pain control with bowel regimen, PT/OT Monitor H/H for acute blood loss anemia and transfuse blood products PRN Hgb 13.5 (Preop Hgb 15.9). EBL 100 cc Hypertension Normotensive Continue amlodipine 2.5 mg daily MS No acute exacerbation Follows w/ [place] [facility] Rebif SQ inj 3x/wk Pt states he will remain off this week DVT ppx: SCD/TEDS, per ortho Dispo: pending PCP: Gal Patient seen in collaboration with Dr. Carr. Please see addendum. Thank you for this consultation. We will follow the patient with you during their hospital stay. You can reach a member of the [facility] Hospitalist Team 07/06 via hospitalist role on tiger text. Admission and Anticipated Discharge Date Admission Date: December 15, 2021 Supervising Physician Co-Signing Physician Notes Patient seen and examined Agree with findings and plans as detailed by Sharon Porter PA-C Subjective Patient seen and examined. Follow-up for medical management, POD#1 s/p L5-S1 lumbar decompression and fusion. Minimal surgical site discomfort. Numbness and tingling in bilateral extremities improved since surgery. Ambulating with PT without issue. Denies any fever, chills, chest pain, shortness of breath, nausea, vomiting, abdominal pain, dysuria or diarrhea. Passing flatus, no bowel movement postoperatively. Review of Systems Review of Systems: ROS per HPI, all other systems reviewed and negative Physical Exam Physical Exam: Gen: WD/WN, NAD, sitting in bed, resting comfortably, A&Ox3 HEENT: Normocephalic, atraumatic, conjunctivae moist, sclerae anicteric, mucous membranes moist Lung: Clear to Auscultation bilaterally, no wheezes/rales/rhonchi Heart: Regular rate, regular rhythm, no murmurs, rubs, or gallops Abdomen: Soft, NT, ND +BS x 4 Extremities: Spinal dressing c/d/i. EBEN drain visualized. No edema Skin: Warm, no rash Results & Data Results & Data ([facility]) Vital Signs (Past 12 Hours) Vital Signs Temp Pulse Resp BP Pulse Ox 12/18/21 06:23 36.8 C 65 16 121/78 97 12/18/21 02:23 36.8 C 87 16 119/72 94 Laboratory Results Short CBC 12/18/21 Range/Units 05:46 WBC 10.88 H (4.8-10.8) K/uL Hgb 13.5 L (14.0-18.0) g/dL Hct 39.8 L (42-52) % Plt Count 197 (130-400) K/uL BMP 12/18/21 05:46 Sodium 137 Potassium 3.9 Chloride 107 Carbon Dioxide 23 BUN 13 Creatinine 0.71 Glucose 96 Calcium 8.6 Diagnostic Findings Lumbar Spine X-Ray 12/17/21 08:50 [place] lumbar spine 2-3V CLINICAL HISTORY: L5-S1 decompression and fusion COMPARISON STUDY: None. FLUOROSCOPY TIME: 25 seconds. FINDINGS: 2 fluoroscopic spot images of the lower lumbar spine demonstrate posterior decompression and fusion at L5-S1 with pedicle screws and rods. The hardware appears intact. A disc spacer is in place. IMPRESSION: Fluoroscopic assistance provided for L5-S1 posterior decompression and fusion ACT 112: Negative or not required by law. Electronically signed by: Alex Erwin M.D. 12/17/2021 11:37 AM
--- NOTE | 2021-12-18 12:46 | Orthopedic Progress Note ---
Date of Service December 18, 2021 Assessment & Plan (1) Neurogenic claudication due to lumbar spinal stenosis: Plan: This time continue physical therapy monitor his EBEN output hopefully discharge home in next day or so. Admission and Anticipated Discharge Date Admission Date: December 15, 2021 Subjective Back pain is controlled leg symptoms markedly improved Physical Exam Physical Exam: On exam patient is ambling the halls with a walker. Is good s trength testing. Peers comfortable. Results & Data ([facility]) Vital Signs (Past 12 Hours) Vital Signs Temp Pulse Resp BP BP Pulse Ox 12/18/21 11:11 62 137/88 12/18/21 11:03 36.8 C 76 16 154/79 H 99 12/18/21 06:23 36.8 C 65 16 121/78 97 12/18/21 02:23 36.8 C 87 16 119/72 94
[2021-12-18] MEDS: amLODIPine BESYLATE 5 MG TAB PO SCH (20:19)
[2021-12-18] MEDS: DOCUSATE SODIUM/SENNA 50/8.6MG TAB PO SCH (20:19)
[2021-12-19] MEDS: POLYETHYLENE (MIRALAX) 17 GM PACK PO SCH ×3 (00:25→13:13)
[2021-12-19] MEDS: traMADol HCL 50 MG TABLET PO PRN ×3 (04:54→14:06)
[2021-12-19] MEDS: ACETAMINOPHEN 500 MG TAB PO PRN ×2 (06:18→13:12)
[2021-12-19 06:30] LABS: Hematocrit (blood only) 39.9 % (42-52); Hemoglobin 13.4 g/dL (14.0-18.0); Mean Corpuscular Hemoglobin 31.5 pg (25-34); Mean Corpuscular Hgb Conc 33.6 g/dL (32-36); Mean Corpuscular Volume 93.9 fL (80-100); Mean Platelet Volume 11.3 fL (7.4-10.4); Platelet Count 197 K/uL (130-400); RDW Coefficient of Variation 12.8 % (11.5-14.5); Red Blood Count 4.25 M/uL (4.7-6.1)
[2021-12-19 07:05] LABS: BUN Creatinine Ratio 17.3 (10-20); Calcium 8.5 mg/dl (8.5-10.1); Est GFR (African American) 128.4 ml/min; Est GFR (Non-African American) 110.8 ml/min; Potassium 4.1 mmol/L (3.5-5.1)
[2021-12-19] MEDS: dexAMETHasone 6 MG in SYRINGE 0 ML IV SCH ×2 (07:50→07:52)
[2021-12-19] MEDS ORDERED: dexAMETHasone 4 MG TAB PO ONE (10:45)
--- NOTE | 2021-12-19 12:58 | Discharge Summary ---
Date of Service December 19, 2021 Admission HPI Per Admitting Provider This is a 46-year-old male presents with progressive chronic bilateral leg pain with developing foot drop into the right lower extremity. This is been progressive over the past year. There was no specific trauma fall or event. He describes pain rating into the buttocks prickly down the right thigh into his great toe. It is markedly exacerbated with standing and walking. Is able to obtain relief with sitting or lying supine. He is undergone various trials of oral medications without relief. He has undergone 2 lumbar epidural injections that provided little to no long-term effect. Is undergone several sessions of physical therapy without reduction of his symptoms. Is markedly limiting his quality of life. 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 Principal Diagnosis Lumbar spinal stenosis with radiculopathy Discharge Data Allergies Allergy/AdvReac Type Severity Reaction Status Date / Time No Known Allergies Allergy Verified 12/17/21 08:17 Consultations 12/15/21 09:12 ED Decision to Admit Stat 12/15/21 10:45 Consult Internal Medicine Routine Procedures Performed Operation Date: 12/17/21 08:50 Actual Procedures p L5-S1 Lumbar Decompression Fusion(Not Applicable) - Joce Lemus DO Ordered Studies 12/17/21 08:50 FL lumbar spine 2-3V Routine Hospital Course (1) Neurogenic claudication due to lumbar spinal stenosis: Patient was admitted with severe radiculopathy was able to undergo surgery shortly thereafter. He tolerated procedure well was taken orthopedic for postoperative. Postop day 1 he was up and ambulating with marked improvement of his radiculopathy and leg pain. He progressed to postop day #2. EBEN drain decreasing appropriate. Excellent strength testing. Patient subsequent dis charge home. Discharge orders instructions from the chart for further review. Total Time Total Time Spent Total Time Spent (In Minutes): 20 minutes Discharge Plan Discharge Items Patient Disposition: Home - Self-Care Reason For Visit: LEG PAIN AND WEAKNESS Discharge Diagnosis: Lumbar spinal stenosis with radiculopathy Condition on Discharge: Fair Activity: As commented below Non-emergency contact: Primary Care Provider Call non-emergency contact if: you have any medication questions Follow-up/Referrals: Sorin Santo MD [Primary Care Provider] - Diet: Regular Addtl Attending Provider Instructions: ACTIVITY RECOMMENDATIONS: SELF CARE INSTRUCTIONS AFTER THORACIC/LUMBAR FUSIONS 1. You may walk to your tolerance. It is good exercise for your legs and back. Expect some back and intermittent leg aches and pains. 2. You may perform "counter-top" level activities (make a sandwich, steph with a project, etc.). 3. No bending or lifting of more than 10 pounds or back twisting of any nature (roll like a log when turning in bed). 4. You may ride in a car for 20-30 minutes at a time. No driving until after your first visit with your doctor. 5. Frequent changes of position and restricting sitting to 30 minutes at a time will help limit the amount of back spasms and stiffness you may experience. 6. You may discontinue the use of ambulatory aids (cane, crutches, etc.) once your strength and confidence allow. 7. You may line out worker the shower and let water strike your incision when you arrive home at least once daily. Do not take a tub bath, sit in a hot tub or go into a swimming pool until after your first recheck in the office. SPECIAL CARE INSTRUCTIONS: VERY IMPORTANT TO READ AND REVIEW A. Your surgical incision has been closed with a cosmetic suture under the skin that will dissolve in about 6 weeks. In 14 days, you can use a pair of clean scissors and cut the suture that is left outside of the skin at the ends of your incision. 1. The small skin tapes can be removed 7 days after surgery if they have not fallen off by that point. 2. You may keep the wound open to air as much as possible to promote healing after post-op day number 5 unless told otherwise by your doctor. 3. If you think the wound looks like it is becoming infected (redness or worsening drainage) and/or you are experiencing fever, chill or worsening back pain and muscle spasms, contact the office so that we may evaluate you as soon as possible. B. Complications are uncommon, but please contact us if you have any signs or symptoms of: 1. wound infection (fever higher than 102.5 degrees F, redness, separation of wound, drainage, or increasing pain from the incision) 2. blood clots in legs (pain, swelling, redness and warmth in legs) 3. urinary tract infection (fever higher than 102.5 degrees F, burning upon urination or increased frequency of urination) 4. nerve problems (inability to walk on your toes or heels, numbness, loss of bowel or bladder control) 5. any other symptoms that concern you C. Please call the office at if you have any concerns or questions about your operation or recovery. D. No smoking! Smoking drastically decreases the chance of a solid fusion. E. Do not take any anti-inflammatory medications (Indocin, Advil, Motrin, Aspirin, Naprosyn, etc.) as these may inhibit the chance of a solid fusion. Tylenol is okay to take for pain. MANAGING PAIN AFTER SPINAL SURGERY 1. Narcotic medication is intended for short-term use and will be provided for surgical pain. Surgical pain usually lasts for a period of 4-6 weeks. Narcotic medication includes Percocet, Vicodin, Darvocet, Tylenol #3 or Lortab. 2. Longer-term pain is more appropriately treated with non-narcotic medication such as Tylenol ES. 3. Muscle spasm is not appropriately treated with narcotics. Muscle relaxers such as Soma, Flexeril or Skelaxin can be used along with Tylenol ES. 4. Remember that we all live with some "aches and pains". This is not unusual or uncommon after an injury or as we get older. a. Back pain is expected and may include muscle spasms for 4 to 6 weeks after surgery. The pain should gradually improve. If the pain worsens for no apparent reason, please contact the office. b. Intermittent leg pain may also be experienced and should not be concerned about unless it worsens for no apparent reason. If so, please contact the office. 5. We will provide appropriate medication within the normal guidelines of their prescribed use. We will also be very cautious and aware of potential abuse and extended duration of patients' medication needs. a. Pain medications are for your comfort and to assist with sleep and rest so that the tissue can heal. They are not provided in order to return to normal activity and should not be used through the day. To do so or worsening pain at night can result from ongoing tissue damage and development of tolerance to the prescribed medicine. 6. Please allow 2-3 days to process refills. Prescriptions will not be mailed but must be picked up at the office. FOLLOW UP VISIT: Keep your scheduled follow-up appointment. Any questions, please call the office at . Pending Studies at Discharge: No Stand-Alone Forms: My [facility], Smoking Cessation Medications and DC Order Prescriptions: New tramadol 50 mg tablet 50 mg PO Q6H PRN (Reason: pain, moderate) Qty: 30 RF: 0 oxycodone 5 mg tablet 5 mg PO Q6H PRN (Reason: pain, severe) Qty: 30 RF: 0 Continued acetaminophen [Tylenol Extra Strength] 500 mg Tablet 1,000 mg PO Q6H PRN (Reason: Pain) RF: 0 Rebif (with albumin) 44 mcg/0.5 mL syringe 0.5 ml SUBCUT 3XWK RF: 0 amlodipine 2.5 mg Tablet 2.5 mg PO PM RF: 0 Discharge Orders: Discharge Order (Routine); Ordered 12/19/21 Ordered By: Joce Lemus Admission Data Admit Date/Time: 12/15/21 10:11 Attending Provider: Joce Lemus Admit Provider: Joce Lemus Primary Care Provider: Sorin Santo Other Providers: Jackson Lucero ; Milena Carr I. ; Joce Lemus ; Sharon Dutton
--- NOTE | 2021-12-19 14:34 | Hospitalist Progress Note ---
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 Neurogenic claudication due to lumbar spinal stenosis POD#2 L5-S1 decompression and fusion by Dr. Lemus Activity and wound care orders as per ortho Pain control with bowel regimen, PT/OT Monitor H/H for acute blood loss anemia and transfuse blood products PRN Hgb stable at 13.4 (13.5 yesterday). EBL 100 cc Hypertension Continue amlodipine 2.5 mg daily MS No acute exacerbation Follows w/ [facility] Rebif SQ inj 3x/wk Pt states he will remain off this week DVT ppx: SCD/TEDS, per ortho Dispo: pending PCP: Gal Admission and Anticipated Discharge Date Admission Date: December 15, 2021 Supervising Physician Co-Signing Physician Notes Patient not seen as he was discharged by Primary team prior to my rounds. However, he was evaluated by Sharon Porter PA-C as detailed Subjective Patient seen and examined in 378-2. Follow-up for medical management, POD#2 s/p L5-S1 lumbar decompression and fusion. Minimal surgical site discomfort. Numbne ss and tingling in bilateral extremities improved even more since yesterday. Ambulating with PT without issue. Denies any fever, chills, chest pain, shortness of breath, nausea, vomiting, abdominal pain, dysuria or diarrhea. Passing flatus, no bowel movement postoperatively. Review of Systems Review of Systems: ROS per HPI, all other systems reviewed and negative Physical Exam Physical Exam: Gen: WD/WN, NAD, sitting in bed, resting comfortably, A&Ox3 HEENT: Normocephalic, atraumatic, conjunctivae moist, sclerae anicteric, mucous membranes moist Lung: Clear to Auscultation bilaterally, no wheezes/rales/rhonchi Heart: Regular rate, regular rhythm, no murmurs, rubs, or gallops Abdomen: Soft, NT, ND +BS x 4 Extremities: Spinal dressing c/d/i. EBEN drain visualized. No edema Skin: Warm, no rash Results & Data Results & Data ([facility]) Vital Signs (Past 12 Hours) Vital Signs Temp Pulse Pulse Resp BP BP Pulse Ox 12/19/21 13:31 36.5 C 85 64 17 141/93 H 126/71 96 12/19/21 07:20 36.5 C 64 17 141/93 H 96 Laboratory Results Short CBC 12/19/21 Range/Units 06:03 WBC 9.70 (4.8-10.8) K/uL Hgb 13.4 L (14.0-18.0) g/dL Hct 39.9 L (42-52) % Plt Count 197 (130-400) K/uL BMP 12/19/21 06:03 Sodium 138 Potassium 4.1 Chloride 106 Carbon Dioxide 27 BUN 13 Creatinine 0.75 Glucose 95 Calcium 8.5 Diagnostic Findings Lumbar Spine X-Ray 12/17/21 08:50 FL lumbar spine 2-3V CLINICAL HISTORY: L5-S1 decompression and fusion COMPARISON STUDY: None. FLUOROSCOPY TIME: 25 seconds. FINDINGS: 2 fluoroscopic spot images of the lower lumbar spine demonstrate posterior decompression and fusion at L5-S1 with pedicle screws and rods. The hardware appears intact. A disc spacer is in place. IMPRESSION: Fluoroscopic assistance provided for L5-S1 posterior decompression and fusion ACT 112: Negative or not required by law. Electronically signed by: Alex Erwin M.D. 12/17/2021 11:37 AM
== END 2021-12-19 14:54 | disposition home or self-care (01) | DRG 455 ==
LOC: ED 07:41 → 3N 10:11

== ENCOUNTER 2022-08-10 13:10 | Observation (INO) ==
--- NOTE | 2022-07-17 11:50 | PAT Medication Instructions ---
Medication Instructions Date of Service July 17, 2022 Home Medications acetaminophen 500 mg tablet (Tylenol Extra Strength) 1,000 mg PO Q6H PRN interferon beta-1a (albumin) 44 mcg/0.5 mL subcutaneous syringe (Rebif (with albumin)) 0.5 ml subcut 3XWK amlodipine 2.5 mg tablet 2.5 mg PO QAM ASK your prescriber and surgeon interferon beta-1a (albumin) 44 mcg/0.5 mL subcutaneous syringe (Rebif (with albumin)) 0.5 ml subcut 3XWK Take morning of surgery With a small sip of water, OTHERWISE NOTHING TO EAT OR DRINK AFTER MIDNIGHT: acetaminophen 500 mg tablet (Tylenol Extra Strength) 1,000 mg PO Q6H PRN(if needed) amlodipine 2.5 mg tablet 2.5 mg PO QAM Take evening before surgery acetaminophen 500 mg tablet (Tylenol Extra Strength) 1,000 mg PO Q6H PRN(if needed) Other Notes If you have any questions please call us at [phone] or [phone] or [phone] or [phone]
--- NOTE | 2022-07-30 13:55 | PAT Medication Instructions ---
Medication Instructions Date of Service July 30, 2022 Home Medications Medication Instructions Recorded oxycodone 5 mg tablet 5 mg PO Q4H PRN pain #15 tabs 07/20/22 acetaminophen 500 mg tablet (Tylenol Extra Strength) 1,000 mg PO Q6H PRN Pain interferon beta-1a (albumin) 44 mcg/0.5 mL subcutaneous syringe (Rebif (with albumin)) 0.5 ml subcut 3XWK amlodipine 2.5 mg tablet 2.5 mg PO QAM oxycodone 5 mg tablet 5 mg PO Q4H PRN pain ASK your prescriber and surgeon interferon beta-1a (albumin) 44 mcg/0.5 mL subcutaneous syringe (Rebif (with albumin)) 0.5 ml subcut 3XWK Take morning of surgery With a small sip of water, OTHERWISE NOTHING TO EAT OR DRINK AFTER MIDNIGHT: acetaminophen 500 mg tablet (Tylenol Extra Strength) 1,000 mg PO Q6H PRN Pain (if needed) amlodipine 2.5 mg tablet 2.5 mg PO QAM oxycodone 5 mg tablet 5 mg PO Q4H PRN pain (if needed) Take evening before surgery acetaminophen 500 mg tablet (Tylenol Extra Strength) 1,000 mg PO Q6H PRN Pain (if needed) oxycodone 5 mg tablet 5 mg PO Q4H PRN pain (if needed) Other Notes If you have any questions please call us at [phone] or [phone] or [phone] or [phone]
--- NOTE | 2022-07-31 08:26 | Anesthesiology Consultation ---
Date of Service July 31, 2022 Assessment & Plan (1) Encounter for pre-operative examination: - PAT testing will be faxed to surgeon and PCP office for continuity of care. - ER 07/20/22 [facility]: "...Patient history and physical exam were performed. Nurses notes were reviewed. Vital signs were reviewed, showing an elevated blood pressure. Initial x-rays of the ring finger confirms a fracture dislocation at the PIP joint, with a fracture segment at the dorsal base of the middle phalanx. In order to facilitate digital block anesthesia, the patient's wedding ring first had to be cut off. After this was performed by me, digital block anesthesia was administered with successful reduction of the PIP joint. Post reduction x-ray shows reduction with persistent fracture segment displacement. A metal splint and jose luis taping were applied..." Pt reports underwent surgery on finger 2 days ago and is doing well, fingers jose luis taped and wrapped extensively. Chart Review Chart Review: Acceptable Risk for Surgery and Patient seen in Pre Admission Testing Teaching & Discussion Pre-Anesthesia Teaching/Discussion Notes: Instructed NPO after midnight before surgery, except medications with 15 cc of water. Medication instructions provided according to the PAT guidelines. History Surgery Operation Date: 08/10/22 12:25 Proposed Procedures p L5-S1 Revision Fusion, Possible L4-L5 Decompression and Fusion, Spinal Cord Monitoring - Joce Lemus, Height/Weight Height: 6 ft 1 in Weight: 102.4 kg Allergies Allergy/AdvReac Type Severity Reaction Status Date / Time No Known Allergies Allergy Verified 07/17/22 10:14 Medications Home Medications Medication Instructions Recorded Confirmed Last Taken acetaminophen 500 mg tablet 1,000 mg PO Q6H PRN Pain 10/06/20 07/17/22 10/06/20 03:00 (Tylenol Extra Strength) 1000 mg interferon beta-1a (albumin) 44 0.5 ml subcut 3XWK 10/07/20 07/17/22 12/12/21 mcg/0.5 mL subcutaneous syringe (Rebif (with albumin)) amlodipine 2.5 mg tablet 2.5 mg PO QAM 12/08/21 07/17/22 12/15/21 oxycodone 5 mg tablet 5 mg PO Q4H PRN pain #15 tabs 07/20/22 Unknown Past Medical History Medical History (Updated 07/31/22 @ 08:24 by Jane Cho PA-C) Diverticular disease pt denies h/o diverticulitis Fusion of spine 12/2021 [facility] History of COVID-19 DX'D 09/2020 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 Exercise / Class Metabolic Activity II 4-5 Yardwork/Stairs/Walk up hill (denies CP or SOB with 1 FOS) Past Family History Family History Father Family history of diabetes mellitus Other Family history of breast cancer in mother Past Surgical History Surgical History (Updated 07/28/22 @ 09:14 by Jane Cho PA-C) History of ankle surgery RIGHT ANKLE ORIF History of colonoscopy 2020 History of lithotripsy x2. 03/31/19 and 04/21/19: LMA#5. History of lumbar surgery L5-S1 decompression fusion 12/17/21: Grade 2 view, MAC 3, ETT 7.5. History of tooth extraction Hx of vasectomy Past Anesthesia History No Hx of Anesthesia Complications and No Family Hx of Anesthesia Complications History of PONV No Hx of PONV and Hx of Motion Sickness Social History Smoking Status: Never smoker Do You Dip or Chew Tobacco: No Hx Alcohol Use: Yes Alcohol type: beer alcohol intake frequency: other Alcohol Intake Frequency Comment: RARELY Hx Substance Use: No substance use type: does not use Review of Systems Patient denies chest pain, shortness of breath, dyspnea on exertion, snoring, witnessed apneas, reflux, fever, chills, cough, wheezing, or palpitations. Physical Exam Vital Signs Vitals BP 139/89 P 61 TEMP 97.9 SP02 99% on RA RESP 177 Physical Full cervical extension range of motion without pain TMD 3.5 finger breadths Mallampati Score 3 Dentition: intact, one crown; denies chipped or loose teeth, implants or bridges Lungs: normal respiratory effort. Clear throughout to auscultation, no adventitious breath sounds Cardiac: regular rate and rhythm, no murmurs noted Carotid arteries: negative bruit bilat Lab Results Anesthesia Preop Results Results Anesthesia Widget: WBC 8.32 K/ul (4.8-10.8) 07/31/22 Hgb 14.1 g/dl (14.0-18.0) 07/31/22 Hct 43.6 % (40.1-51.0) 07/31/22 Plt 262 K/uL (130-400) 07/31/22 Na 144 mmol/L (136-145) 07/31/22 K 4.5 mmol/L (3.5-5.1) 07/31/22 Cl 107 mmol/L (98-107) 07/31/22 CO2 30 mmol/L (21-32) 07/31/22 BUN 18 mg/dl (6-23) 07/31/22 Creat 0.87 mg/dl (0.6-1.4) 07/31/22 Glucose Level 89 mg/dl (70-99(Fasting)) 07/31/22 PT 10.9 Seconds (9.0-12.0) 07/31/22 PTT 26.2 Seconds (21.0-31.0) 07/31/22 INR 1.0 (0.9-1.1) 07/31/22 Urine Color Dark Yellow 07/31/22 Urine Appearance Clear (Clear) 07/31/22 Urine pH 5.5 (4.5-7.5) 07/31/22 Urine Specific [place] 1.038 (1.000-1.030) H 07/31/22 Urine Protein Trace (Negative) H 07/31/22 Urine Glucose (UA) Negative (Negative) 07/31/22 Urine Ketones Negative (Negative) 07/31/22 Urine Blood Negative (Negative) 07/31/22 Urine Nitrite Negative (Negative) 07/31/22 Urine Bilirubin Negative (Negative) 07/31/22 Urine Urobilinogen Negative (Negative) 07/31/22 Urine Leukocyte Esterase Negative (Negative) 07/31/22 Urine WBC (Auto) 5-10 /hpf (0-5) H 07/31/22 Urine RBC (Auto) 0-4 /hpf (0-4) 07/31/22 Urine Hyaline Casts (Auto) 1-5 /lpf (0-5) 07/31/22 Urine Epithelial Cells (Auto) 0-5 /lpf (0-5) 07/31/22 Urine Bacteria (Auto) Negative (Negative) 07/31/22 Blood Type A Positive 07/31/22 Antibody Screen NEGATIVE 07/31/22 Testing Electrocardiogram Date: 12/01/21 NSR, rate [address] bpm Diff[address] minor nonspecific ST abnormality Chest X-Ray Date: 12/01/21 No acute cardiopulmonary findings. Echocardiogram Date: 11/21/21 EF 55-59% Mild cLVH Normal LV wall motion Grade I diastolic dysfunction No significant valvular disease Borderline enlarged aortic root Stress Test Date: 03/16/22 Pharmacologic Negative for ischemia MPHR 83% EF 65% COVID-19 Risk Screen Screening Information COVID-19 Screen Date: 07/31/22 Exposure 21 Days Family/Household +COVID Last 21 Days: No Exposure 10 Days Any COVID Exposure Last 10 Days: No Symptoms Last 10 Days Experienced COVID Sx Last 10 Days: No + COVID 0-90 Days COVID + in Last 0-90 Days: No
[~2022-08-10 13:10] MED LIST: ACETAMINOPHEN 500 MG TAB PO SCH; CeleBREX 200 MG CAP PO SCH; GABAPENTIN 900 MG DOSE PO SCH; LR 15ML/HR IV SCH; ceFAZolin 2000MG 2,000 MG/15 ML SYR IV SCH
--- NOTE | 2022-08-10 13:30 | History & Physical Bridge Note ---
Date of Service August 10, 2022 History & Physical Bridge Note I have examined the patient, reviewed the History & Physical and in the interval since the performance of the History & Physical I have noted the following changes of clinical significance: no changes noted
--- NOTE | 2022-08-10 13:31 | History & Physical Report ---
Date of Service August 10, 2022 Assessment & Plan (1) Neurogenic claudication due to lumbar spinal stenosis: Plan: L5-S1 revision fusion, possible L4-L5 decompression and fusion History of Present Illness Chief Complaint: Chronic back and leg pain Primary Care Provider: Sorin Santo MD This is a 47-year-old male well-known to me the presents with worsening back and leg pain Of failed extensive course of nonoperative care is here for surgical invention. Allergies Allergy/AdvReac Type Severity Reaction Status Date / Time No Known Allergies Allergy Verified 08/10/22 13:29 Home Medications Medication Instructions Recorded Confirmed Type acetaminophen 500 mg tablet 1,000 mg PO Q6H PRN Pain 10/06/20 07/17/22 History (Tylenol Extra Strength) interferon beta-1a (albumin) 44 0.5 ml subcut 3XWK 10/07/20 07/17/22 History mcg/0.5 mL subcutaneous syringe (Rebif (with albumin)) amlodipine 2.5 mg tablet 2.5 mg PO QAM 12/08/21 07/17/22 History oxycodone 5 mg tablet 5 mg PO Q4H PRN pain #15 tabs 07/20/22 Rx Past Med/Surg History Medical History (Updated 08/10/22 @ 13:29 by Bernarda Pinto, GIO) Diverticular disease pt denies h/o diverticulitis Finger fracture, left ring finger. 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 03/31/19 and 04/21/19: LMA#5. History of lumbar surgery L5-S1 decompression fusion 12/17/21: Grade 2 view, MAC 3, ETT 7.5. History of tooth extraction Hx of vasectomy Family History Father Family history of diabetes mellitus Other Family history of breast cancer in mother Social History Smoking Status: Never smoker Second Hand Exposure: No; Do You Dip or Chew Tobacco: No; Hx Alcohol Use: Yes Alcohol type: beer Hx Substance Use: No Preferred Language: Kyrgyz Communication Ability: Effective Diet Attendant Required: No Beliefs That Will Affect Care: None Current Living Situation: Spouse and Family current occupational status: employed Other Information That Helps Us Care for You: No Feels Safe at Home: Yes Safety Concerns: Feels Safe At This Time Assistive Devices: Contacts and Glasses Assistive Devices Comment: WILL WEAR GLASSES DOS? Physical Exam Physical Exam: Patient is alert and oriented Heart regular rhythm Lungs clear
[2022-08-10] MEDS ORDERED: ONDANSETRON INJ 2 MG/ML 2 ML VIAL IV PRN ×2 (13:47→18:23)
[2022-08-10] MEDS ORDERED: ePHEDrine sulfate 50 MG/ML AMP IV PRN (13:47)
[2022-08-10] MEDS ORDERED: HYDROmorphone INJ 2 MG/ML SYR/VIAL IV PRN (13:47)
[2022-08-10] MEDS ORDERED: ATROPINE SULFATE 0.1 MG/ML 10ML SYR IV PRN (13:47)
[2022-08-10] MEDS ORDERED: fentaNYL citrate 100 MCG/2 ML VIAL ONE (14:12)
[2022-08-10] MEDS ORDERED: PROPOFOL IV EMULSION 10 MG/ML 20 ML VIAL IV ONE (14:12)
[2022-08-10] MEDS ORDERED: LIDOCAINE 2% MPF LOCAL 5 ML VIAL INFIL ONE (14:12)
[2022-08-10] MEDS ORDERED: MIDAZOLAM HCL 1 MG/ML 2ML VIAL ONE (14:12)
[2022-08-10] MEDS ORDERED: ROCURONIUM BROMIDE 10 MG/ML 5 ML VIAL IV ONE ×3 (14:12→15:50)
[2022-08-10] MEDS ORDERED: ceFAZolin 330 MG/ML 1 GM VIAL ONE ×2 (14:38→16:32)
[2022-08-10] MEDS ORDERED: BUPIVACAINE/EPINEPHRINE 0.25% 1:200,000 30 ML VIAL ONE (14:52)
[2022-08-10] MEDS ORDERED: DEXAMETHASONE SOD INJ 4 MG/ML VIAL ONE (15:52)
[2022-08-10] MEDS ORDERED: ONDANSETRON INJ 2 MG/ML 2 ML VIAL ONE (15:52)
[2022-08-10] MEDS ORDERED: HYDROmorphone INJ 2 MG/ML SYR/VIAL ONE (15:53)
[2022-08-10] MEDS ORDERED: FLOSEAL HEMOSTATIC MATRIX 10ML TOP ONE (16:04)
[2022-08-10] MEDS ORDERED: ePHEDrine sulfate 50 MG/ML AMP ONE (16:12)
[2022-08-10] MEDS ORDERED: NEOSTIGMINE METHYLSULFATE 1 MG/ML 10ML VIAL ONE (16:54)
[2022-08-10] MEDS ORDERED: GLYCOPYRROLATE 0.2 MG/ML VIAL ONE (16:54)
--- NOTE | 2022-08-10 17:07 | Operative Report ---
Post Operative Report Pre & Post Diagnosis Operation Date: 08/10/22 14:45 Pre-Op Diagnosis: Neurogenic claudication due to lumbar spinal stenosis. Post-Op Diagnosis: Neurogenic claudication due to lumbar spinal stenosis. 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 #2 exploration of fusion L5-S1. #3 lumbar decompression bilateral medial facetectomies and foraminotomies L4-5. #4 posterior spinal fusion L4-L5 L5-S1. #5 placement posterior instrumentation L4-S1. #6 interbody fusion L4-5 per #7 placement of Spira 15 x 26 mm at L4-5 per #8 placement locally harvested morselized in the posterior gutters. #9 placement of I factor in the interbody space and infuse collagen sponge, and master graft in the posterior gutters L4-S1. Surgeon Joce Lemus, Dow[place] Setting Machine Operator Kalyn Campbell Estimated Blood Loss 100 Findings Consistent with Post-Op Diagnosis Specimens None Indications This is a 47-year-old male known to me the presents with marked decline in status with worsening back pain and leg symptoms. He did have a positive response from his L4-L5 facet blocks. However this only lasted a week. And is here for surgical intervention. Description of Procedure Patient was met with identified informed consent obtained. Patient was then taken to the operative suite underwent a patient placed in a prone position the [place] table top [place] frame. All bony prominences well-padded eyes inspected to ensure no external pressure placed upon the. This point lumbar spine was prepped and draped in normal sterile fashion. Sharp dissection with the assistance pericardial form down to and exposing the lamina and transverse processes of L4-L5 and the sacral ala bilaterally. The hardware at L5 5 S1 was then identified and removed. Obvious loosening of the pedicle screws bilaterally was appreciated. I did test the fusion mass it appeared to be mature with residual motion. I subsequently placed the screws on the left with 8.5 x 48 S1 and 8.5 x 45 and L5 on the left. On the right the screws were still loose and I elected to place bone cement within the pedicle screw holes followed by placement of the screws. I then performed a complete decompression of L4 including medial facetectomies and foraminotomies addressing all spinal stenosis. Pedicle screws were then placed in L4 bilaterally. Propacet rods were then placed. By way of transfer approach and right complete discectomy of L4-L5 was performed endplates curetted to subcortical bleeding bone and a 15 x 26 mm Spira cage filled with I factor tapped in position. The rods then compressed locked in final position bilaterally. The transverse processes of L4-L5 and sacral ala burred to subcortically bone. Infuse collagen sponge by master graft locally harvested morselized autograft was then placed in the posterior gutters. 15 round EBEN drain inserted. Incision was then closed with 1 Vicryl the fascia 2-0 Vicryl subcutaneously and 4 Monocryl for final skin closure. Steri-Strip sterile dressings placed. Patient will continue PACU stable condition. Please note spinal cord monitoring was utilized at the procedure no changes noted. Lastly Kalyn Campbell was present at the entire surgery involved the patient positioning complex portions of the surgery and final skin closure. I attest to the content of the Intraoperative Record and any orders documented therein. Any exceptions are noted below.
--- NOTE | 2022-08-10 17:19 | Fluoroscopy Report ---
FL lumbar spine 2-3V CLINICAL HISTORY: L5-S1 REVISION/FUSION, POSSIBLE L4-L5 TECHNIQUE: 2 views were obtained with the C-arm in the OR with the above procedure. Total fluoroscopy time was 15.6 seconds. Total skin dose was 10.81 mGy. Comparison: Comparison is made to fluoroscopy of lumbar spine 2-[address] lumbar spine 07/03/2022 FINDINGS/IMPRESSION: Intraoperative images were obtained of L5-S1 revision and fusion. Please correlate with intraoperative fluoroscopy and operative report. ACT 112: Negative or not required by law. Electronically signed by: Antonio Etienne M.D. 08/10/2022 5:17 PM
[2022-08-10] MEDS: fentaNYL citrate 100 MCG/2 ML VIAL IV PRN ×2 (17:33→17:38)
--- NOTE | 2022-08-10 18:05 | Anesthesiology Progress Note ---
Date of Service August 10, 2022 Anesthesia Post Procedure Vital Signs Vital Signs: Temp Pulse Resp BP Pulse Ox O2 Del Method O2 Flow Rate 08/10/22 18:00 82 14 121/76 97 Oxymask 2 08/10/22 17:50 36.4 C L 90 14 116/76 98 Oxymask 3 08/10/22 17:40 85 14 115/89 95 Oxymask 3 08/10/22 17:30 91 H 16 132/88 99 Oxymask 5 08/10/22 17:21 36.5 C 120 H 12 145/104 H 96 Oxymask 5 08/10/22 13:37 37 C 82 18 156/100 H 96 Room Air Pain Intensity Lower Back: Pain Intensity: 7 Transfer of Care Handoff Completed per policy Notes Mental Status: alert / awake / arousable Patient Amnestic to Procedure: Yes Nausea / Vomiting: adequately controlled Pain: adequately controlled Airway Patency, RR, SpO2: stable & adequate BP & HR: stable & adequate Hydration State: stable & adequate Anesthetic Complications: no major complications apparent and Pt Satisfied with anesthetic care
[2022-08-10] MEDS ORDERED: FAMOTIDINE 20 MG TAB PO PRN (18:23)
[2022-08-10] MEDS ORDERED: HYDROmorphone INJ 0.5 MG/0.5 ML SYR IV PRN (18:23)
[2022-08-10] MEDS ORDERED: oxyCODONE HCL IR 5 MG TAB (IMMEDIATE RELEASE) PO PRN (18:23)
[2022-08-10] MEDS ORDERED: PROMETHAZINE HCL 12.5 MG in SODIUM CHLORIDE 0.9% 50 ML IV PRN (18:23)
[2022-08-10] MEDS ORDERED: bisacodyL 10 MG SUPP PR PRN (18:23)
[2022-08-10] MEDS ORDERED: NALOXONE HCL 0.4 MG/1 ML VIAL/CARP IV PRN (18:23)
[2022-08-10] MEDS ORDERED: MAGNESIUM HYDROXIDE SUSP 30 ML UDC PO PRN (18:23)
[2022-08-10] MEDS ORDERED: LORazepam 0.5 MG in SYRINGE 0.25 ML IV PRN (18:23)
[2022-08-10] MEDS ORDERED: hydrOXYzine HCl 25 MG TAB PO PRN (18:23)
[2022-08-10] MEDS ORDERED: ALUMINUM/MAGNESIUM SUSP 30 ML UDC PO PRN (18:23)
[2022-08-10] MEDS ORDERED: ONDANSETRON 4 MG OD TAB PO PRN (18:23)
[2022-08-10] MEDS ORDERED: LORazepam 0.5 MG TAB PO PRN (18:23)
[2022-08-10] MEDS ORDERED: ACETAMINOPHEN 1,000 MG/100 ML VIAL IV PRN (18:23)
[2022-08-10] MEDS ORDERED: METOCLOPRAMIDE HCL INJ 5 MG/ML 2 ML VIAL IV PRN (18:23)
[2022-08-10] MEDS ORDERED: diphenhydrAMINE Capsule 25 MG CAP PO PRN (18:23)
[2022-08-10] MEDS ORDERED: SOD PHOSPHATE/SOD BIPHOSPHATE ENEMA 132 ML BTL PR PRN (18:23)
[2022-08-10] MEDS: HYDROmorphone INJ 1 MG/ML SYRINGE IV PRN (19:30)
[2022-08-10] MEDS: LACTATED RINGER'S 1,000 ML IV SCH (19:32)
--- NOTE | 2022-08-10 20:11 | Consultation ---
Date of Consultation August 10, 2022 Assessment & Plan (1) Neurogenic claudication due to lumbar spinal stenosis: (2) Lumbar disc disease with radiculopathy: (3) Hypertension: (4) Multiple sclerosis: Mr. Kilpatrick is a 47 raul old male who presented to Dr. Lemus with worsening back pain and sciatica. He did have a positive response from his L4- L5 facet blocks; however, only for a week. He underwent surgical decompression today and the [facility]ist were consulted for post-op medical management. Neurogenic claudication d/t lumbar spinal stenosis Lumbar disc disease with radiculopathy: POD#_0 s/p neurogenic claudication due to lumbar spinal stenosis. 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 Lemus EBL 100mL Trend CBC in AM; baseline Hgb 07/31/: 14.1 Per ortho for pain control, wound care, anticoagulation and activities continue incentive spirometry PT/OT when appropriate HTN: stable; continue Amlodipine and HCTZ Multiple Sclerosis: Symptoms well controlled with Rebif M/W/F Family says they have the medication at home Follows Neurology in [place] yearly. Disposition: PCP: Dr. Santo VTE Prophylaxis: TEDs/SCDS Code: Full Point of Contact: Alessandra Kilpatrick: [phone] Supervising Physician Co-Signing Physician Notes Pt was seen and examined. Agreed with Pam RYAN exam, assessment and plan. 47 y/o male with a PMH of HTN, MS who failed conservative treatment. S/P lumbar decompression and fusion performed today by Dr. Lemus. No postop complication. Continue pain control. PT/OT eval. Incentive spirometry. Will monitor H/H. Fall precaution. Continue monitor closely. MD Gulshan History of Present Illness Requesting Physician: Dr. Lemus Reason for Consultation: post operative medical management Attending Physician: Joce Lemus DO History of Present Illness Mr. Kilpatrick is a 47 year old male who presented to Dr. Lemus with worsening back pain and sciatica. He did have a positive response from his L4-L5 facet blocks; however, only for a week. He underwent surgical decompression today. Patient has a PMH that includes Multiple Sclerosis which is relatively in remission. He follows with a Neurologist in [place] and takes Rebif M/W/F. He also has HTN. Pt was AAox4 when I met with him; however, he was groggy as he just received Dilaudid. His , Alessandra was at his bedside and confirmed his history with me. He was able to follow commands and participate in conversation. [facility] Hospitalists will be monitoring him post operatively for med management. Please see A/P for further details. Allergies Allergy/AdvReac Type Severity Reaction Status Date / Time No Known Allergies Allergy Verified 08/10/22 13:29 Home Medications Medication Instructions Recorded Confirmed Type acetaminophen 500 mg tablet 1,000 mg PO Q6H PRN Pain 10/06/20 08/10/22 History (Tylenol Extra Strength) interferon beta-1a (albumin) 44 0.5 ml subcut 3XWK 10/07/20 08/10/22 History mcg/0.5 mL subcutaneous syringe (Rebif (with albumin)) amlodipine 2.5 mg tablet 2.5 mg PO QAM 12/08/21 08/10/22 History oxycodone 5 mg tablet 5 mg PO Q4H PRN pain #15 tabs 07/20/22 08/10/22 Rx hydrochlorothiazide 12.5 mg capsule 12.5 mg PO DAILY 08/10/22 08/10/22 History Patient History Medical History Diverticular disease pt denies h/o diverticulitis Finger fracture, left ring finger. 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 5 and 04/21/19: LMA#5. History of lumbar surgery L5-S1 decompression fusion 12/17/21: Grade 2 view, MAC 3, ETT 7.5. History of tooth extraction Hx of vasectomy Family History Father Family history of diabetes mellitus Other Family history of breast cancer in mother Social History Smoking Status: Never smoker Second Hand Exposure: No; Do You Dip or Chew Tobacco: No; Hx Alcohol Use: No Hx Substance Use: No Preferred Language: [place] Communication Ability: Effective Hand Counter Required: No Beliefs That Will Affect Care: None Current Living Situation: Spouse and Family current occupational status: employed Other Information That Helps Us Care for You: No Feels Safe at Home: Yes Safety Concerns: Feels Safe At This Time Assistive Devices: Contacts and Glasses Assistive Devices Comment: WILL WEAR GLASSES DOS? Review of Systems Review of Systems: Neuro: (-) Falls, trauma, slurred speech HEENT: (-) DOVER, dizziness, dysphagia, visual or auditory changes CV: (-) CP, palpitations, swelling Resp: (-) SOB GI: (-) appetite changes, N/V/D, bowel changes : (-) urinary changes Skin: (-) rashes Psych: (-) anxiety, depression Physical Exam Physical Exam: Neuro: AAOx4, PERRLA, no aphagia, memory changes, CNII-XII grossly intact. Pain 3/10 HEENT: head normocephalic, moist mucus membranes CV: S1/S2, (-) M/G/R, (-) edema, cap refill < 3 seconds EBEN drain serosangenous drainage Resp: Lungs CTA in all alexander. On RA GI: Abdomen S/NT/ND, Ax4 bowel sounds, (-) CVA tenderness Musculoskeletal: 5/5 B/L UE strength, 5/5 B/L LE strength. No gait disturbance Skin: (-) rashes , (-) erythema. lumbar dressing C/D?I. Ortho to assess incision. Psych: euthymic mood Results & Data ([facility]) Vital Signs (Past 12 Hours) Vital Signs Temp Pulse Resp BP Pulse Ox O2 Del Method O2 Flow Rate 08/10/22 19:38 36.4 C L 87 14 114/78 92 Room Air 08/10/22 19:18 36.4 C L 87 14 114/78 92 Room Air 08/10/22 19:00 36.6 C 86 14 122/78 94 Room Air 08/10/22 18:40 36.4 C L 83 18 128/84 90 Room Air 08/10/22 18:10 36.4 C L 88 18 123/68 94 Room Air 08/10/22 18:00 82 14 121/76 97 Oxymask 2 08/10/22 17:50 36.4 C L 90 14 116/76 98 Oxymask 3 08/10/22 17:40 85 14 115/89 95 Oxymask 3 08/10/22 17:30 91 H 16 132/88 99 Oxymask 5 08/10/22 17:21 36.5 C 120 H 12 145/104 H 96 Oxymask 5 08/10/22 13:37 37 C 82 18 156/100 H 96 Room Air Diagnostic Findings Lumbar Spine X-Ray 08/10/22 00:00 FL lumbar spine 2-3V CLINICAL HISTORY: L5-S1 REVISION/FUSION, POSSIBLE L4-L5 TECHNIQUE: 2 views were obtained with the C-arm in the OR with the above procedure. Total fluoroscopy time was 15.6 seconds. Total skin dose was 10.81 mGy. Comparison: Comparison is made to fluoroscopy of lumbar spine 2-[address] lumbar spine 07/03/2022 FINDINGS/IMPRESSION: Intraoperative images were obtained of L5-S1 revision and fusion. Please correlate with intraoperative fluoroscopy and operative report. ACT 112: Negative or not required by law. Electronically signed by: Antonio Etienne M.D. 08/10/2022 5:17 PM
[2022-08-10] MEDS: ceFAZolin 2000MG 2,000 MG/15 ML SYR IV SCH (23:13)
[2022-08-10] MEDS: DOCUSATE SODIUM/SENNA 50/8.6MG TAB PO SCH (23:13)
[2022-08-11] MEDS: LACTATED RINGER'S 1,000 ML IV SCH ×3 (02:15→15:01)
[2022-08-11] MEDS: ACETAMINOPHEN 500 MG TAB PO PRN (06:10)
[2022-08-11] MEDS: ceFAZolin 2000MG 2,000 MG/15 ML SYR IV SCH (06:10)
[2022-08-11 07:10] LABS: Hematocrit (blood only) 36.3 % (40.1-51.0); Hemoglobin 12.3 g/dl (14.0-18.0); Immature Granulocytes # (auto) 0.02 K/uL (0.00-0.02); Immature Granulocytes % (auto) 0.2 %; Lymphocytes # (auto) 1.25 K/uL (1.2-3.4); Lymphocytes % (auto) 11.6 %; Mean Corpuscular Hemoglobin 30.4 pg (25.0-34.0); Mean Corpuscular Hgb Conc 33.9 g/dL (32.0-36.0); Mean Corpuscular Volume 89.6 fL (80.0-100.0); Monocytes # (auto) 0.62 K/uL (0.24-0.82); Monocytes % (auto) 5.7 %; Neutrophils # (auto) 8.93 K/uL (1.4-6.5); Neutrophils % (auto) 82.5 %; Platelet Count 236 K/uL (130-400); RDW Coefficient of Variation 13.3 % (11.5-14.5); RDW Standard Deviation 43.7 fL (36.4-46.3); Red Blood Count 4.05 M/uL (4.63-6.08); White Blood Count 10.82 K/ul (4.8-10.8)
[2022-08-11] MEDS: POLYETHYLENE (MIRALAX) 17 GM PACK PO SCH ×4 (07:23→20:14)
[2022-08-11 08:08] LABS: Calcium 9.1 mg/dl (8.5-10.1)
[2022-08-11] MEDS ORDERED: hydroCHLOROthiazide 25 MG TAB PO SCH (09:00)
[2022-08-11 09:03] LABS: BUN Creatinine Ratio 23.8 (10-20); Creatinine Clr Calc Pharmacy 144.9 ml/min; Est GFR (African American) 124.2 ml/min; Est GFR (Non-African American) 107.1 ml/min
[2022-08-11] MEDS: amLODIPine BESYLATE 5 MG TAB PO SCH (09:13)
[2022-08-11] MEDS: dexAMETHasone 6 MG in SYRINGE 0 ML IV SCH (09:14)
--- NOTE | 2022-08-11 10:08 | Orthopedic Progress Note ---
Date of Service August 11, 2022 Assessment & Plan (1) Neurogenic claudication due to lumbar spinal stenosis: Plan: At this time we will initiate physical therapy monitor his EBEN operatively discharge home in the next few days. Admission and Anticipated Discharge Date Admission Date: August 10, 2022 Subjective Back pain is controlled right leg symptoms improved. He has still some numbness noted to the right thigh. Physical Exam Physical Exam: On exam is in bed. Is good strength testing. Results & Data ([facility]) Vital Signs (Past 12 Hours) Vital Signs Temp Pulse Resp BP Pulse Ox O2 Del Method 08/11/22 07:12 36.6 C 71 16 124/86 95 Room Air 08/11/22 03:19 36.6 C 90 14 96/64 L 95 Room Air
[2022-08-11] MEDS: HYDROmorphone INJ 1 MG/ML SYRINGE IV PRN (11:46)
--- NOTE | 2022-08-11 14:00 | Hospitalist Progress Note ---
Date of Service August 11, 2022 Assessment & Plan (1) Neurogenic claudication due to lumbar spinal stenosis: (2) Lumbar disc disease with radiculopathy: (3) Hypertension: (4) Multiple sclerosis: Plan: Mr. Kilpatrick is a 47 raul old male who presented to Dr. Lemus with worsening back pain and sciatica. He did have a positive response from his L4- L5 facet blocks; however, only for a week. He underwent surgical decompression today and the [facility]ist were consulted for post-op medical management. Neurogenic claudication d/t lumbar spinal stenosis Lumbar disc disease with radiculopathy: POD#1 s/p neurogenic claudication due to lumbar spinal stenosis. 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 Lemus EBL 100mL [id number]. Per ortho for pain control, wound care, anticoagulation and activities continue incentive spirometry PT/OT when appropriate HTN: stable; continue Amlodipine and HCTZ Multiple Sclerosis: Symptoms well controlled with Rebif M/W/F Family says they have the medication at home Follows Neurology in [place] yearly. Disposition: PCP: Dr. Santo VTE Prophylaxis: TEDs/SCDS Code: Full Admission and Anticipated Discharge Date Admission Date: August 10, 2022 Subjective Patient seen and examined at bedside. He is comfortable; not in any distress. He denies any fever, chills, chest pain, shortness of breath, palpitation. Pain is well controlled on current regimen. Review of Systems Review of Systems: All systems reviewed & are unremarkable except as noted in Subjective Physical Exam Physical Exam: Constitutional: WD/WN, vitals as above, NAD, sitting up in bed, pleasant, conversing easily Respiratory: normal respiratory effort, lungs clear to auscultation, no wheeze, rales, rhonchi. Normal insp/exp effort, no accessory muscle use Cardiovascular: RRR, no murmur, no edema Vessels: no JVD or carotid bruit Chest: normal inspection of chest Abdomen: normal bowel sounds, soft, nontender, no hepatosplenomegaly Musculoskeletal: no cyanosis or clubbing, extremities motor strength 5/5. Maximiliano ssing clean dry and intact in the back. Skin: no rashes, warm and dry normal turgor Neurologic: PERRL, EOMI, accommodation nl, no face palsy, no dysarthria CN's II- XI intact bilaterally and moves all extremities Psychiatric: A+Ox3, euthymic affect Lymphatic: no cervical or axillary lymphadenopathy : deferred Results & Data Results & Data ([facility]) Vital Signs (Past 12 Hours) Vital Signs Temp Pulse Resp BP Pulse Ox O2 Del Method 08/11/22 11:35 36.6 C 80 16 129/88 95 Room Air 08/11/22 07:12 36.6 C 71 16 124/86 95 Room Air 08/11/22 03:19 36.6 C 90 14 96/64 L 95 Room Air Laboratory Results Laboratory Results WBC 10.82 K/ul (4.8-10.8) H 08/11/22 06:33 RBC 4.05 M/uL (4.63-6.08) L 08/11/22 06:33 Hgb 12.3 g/dl (14.0-18.0) L 08/11/22 06:33 Hct 36.3 % (40.1-51.0) L 08/11/22 06:33 MCV 89.6 fL (80.0-100.0) 08/11/22 06:33 MCH 30.4 pg (25.0-34.0) 08/11/22 06:33 MCHC 33.9 g/dL (32.0-36.0) 08/11/22 06:33 RDW Std Deviation 43.7 fL (36.4-46.3) 08/11/22 06:33 RDW Coeff of Ezra 13.3 % (11.5-14.5) 08/11/22 06:33 Plt Count 236 K/uL (130-400) 08/11/22 06:33 MPV 11.0 fL (9.4-12.4) 08/11/22 06:33 Immature Gran % (Auto) 0.2 % 08/11/22 06:33 Neut % (Auto) 82.5 % 08/11/22 06:33 Lymph % (Auto) 11.6 % 08/11/22 06:33 [place] % (Auto) 5.7 % 08/11/22 06:33 Eos % (Auto) 0.0 % 08/11/22 06:33 Baso % (Auto) 0.0 % 08/11/22 06:33 Neut # (Auto) 8.93 K/uL (1.4-6.5) H 08/11/22 06:33 Lymph # (Auto) 1.25 K/uL (1.2-3.4) 08/11/22 06:33 [place] # (Auto) 0.62 K/uL (0.24-0.82) 08/11/22 06:33 Eos # (Auto) 0.00 K/uL (0-0.50) 08/11/22 06:33 Baso # (Auto) 0.00 K/uL (0-0.2) 08/11/22 06:33 Immature Gran # (Auto) 0.02 K/uL (0.00-0.02) 08/11/22 06:33 Sodium 136 mmol/L (136-145) 08/11/22 06:33 Potassium 4.0 mmol/L (3.5-5.1) 08/11/22 06:33 Chloride 102 mmol/L (98-107) 08/11/22 06:33 Carbon Dioxide 25 mmol/L (21-32) 08/11/22 06:33 Anion Gap 9 (3-11) 08/11/22 06:33 BUN 19 mg/dl (6-23) 08/11/22 06:33 Creatinine 0.80 mg/dl (0.6-1.4) 08/11/22 06:33 Est Cr Clr Drug Dosing 144.9 ml/min 08/11/22 06:33 Est GFR ( Amer) 124.2 ml/min 08/11/22 06:33 Est GFR (Non-Af Amer) 107.1 ml/min 08/11/22 06:33 BUN/Creatinine Ratio 23.8 (10-20) H 08/11/22 06:33 Glucose 117 mg/dl (70-99(Fasting)) H 08/11/22 06:33 Calcium 9.1 mg/dl (8.5-10.1) 08/11/22 06:33 SARS-CoV-2, RNA, NAAT NEGATIVE (NEGATIVE) 08/10/22 13:20 Blood Type A Positive 08/11/22 06:33 Antibody Screen NEGATIVE 08/11/22 06:33 Crossmatch See Detail 08/11/22 06:33 Impressions Lumbar Spine X-Ray 08/10/22 00:00 FL lumbar spine 2-3V CLINICAL HISTORY: L5-S1 REVISION/FUSION, POSSIBLE L4-L5 TECHNIQUE: 2 views were obtained with the C-arm in the OR with the above procedure. Total fluoroscopy time was 15.6 seconds. Total skin dose was 10.81 mGy. Comparison: Comparison is made to fluoroscopy of lumbar spine 2-[address] lumbar spine 07/03/2022 FINDINGS/IMPRESSION: Intraoperative images were obtained of L5-S1 revision and fusion. Please correlate with intraoperative fluoroscopy and operative report. ACT 112: Negative or not required by law. Electronically signed by: Antonio Etienne M.D. 08/10/2022 5:17 PM
[2022-08-11] MEDS: traMADol HCL 50 MG TABLET PO PRN (20:12)
[2022-08-11] MEDS: DOCUSATE SODIUM/SENNA 50/8.6MG TAB PO SCH (20:13)
[2022-08-12] MEDS: POLYETHYLENE (MIRALAX) 17 GM PACK PO SCH ×2 (05:09→14:12)
[2022-08-12] MEDS: dexAMETHasone 6 MG in SYRINGE 0 ML IV SCH (08:28)
[2022-08-12] MEDS: traMADol HCL 50 MG TABLET PO PRN (08:28)
[2022-08-12] MEDS: amLODIPine BESYLATE 5 MG TAB PO SCH (08:29)
--- NOTE | 2022-08-12 08:50 | Orthopedic Progress Note ---
Date of Service August 12, 2022 Assessment & Plan (1) Neurogenic claudication due to lumbar spinal stenosis: Plan: Patient is postop day 2 status post hard removal L5-S1, decompression instrumented fusion L4-S1. We will work on pain control today. Continue physi johnny therapy. Maintain EBEN drain. Continue with DVT prophylaxis in the form of teds and SCDs. Anticipate discharge home tomorrow. Admission and Anticipated Discharge Date Admission Date: August 10, 2022 Subjective Patient is postoperative day 2 status post hard removal L5-S1, decompression instrumented fusion L4-S1. Is noting some back soreness today. Still has right lower extremity numbness and foot drop which is established. Lower extremity pain is improved. EBEN drain output last shift was 30 cc. He had a bowel movement. Yesterday in physical therapy ambling roughly 150 feet. Review of Systems Review of Systems: All systems reviewed & are unremarkable except as noted in HPI & below Physical Exam Physical Exam: Patient is laying in bed in no acute distress Alert and oriented x3 Lumbar dressing is clean dry intact with functioning EBEN drain Strength unchanged bilateral lower Calf soft and nontender bilaterally Results & Data ([facility]) Vital Signs (Past 12 Hours) Vital Signs Temp Pulse Resp BP Pulse Ox O2 Del Method 08/12/22 07:45 36.6 C 70 17 133/88 96 Room Air 08/11/22 21:48 36.6 C 80 14 131/85 95 Room Air
--- NOTE | 2022-08-12 15:54 | Hospitalist Progress Note ---
Date of Service August 12, 2022 Assessment & Plan (1) Neurogenic claudication due to lumbar spinal stenosis: (2) Lumbar disc disease with radiculopathy: (3) Hypertension: (4) Multiple sclerosis: Plan: Mr. Kilpatrick is a 47 raul old male who presented to Dr. Lemus with worsening back pain and sciatica. He did have a positive response from his L4- L5 facet blocks; however, only for a week. He underwent surgical decompression on 08/10 and the [facility]ist were consulted for post-op medical management. Neurogenic claudication d/t lumbar spinal stenosis Lumbar disc disease with radiculopathy: POD#2 s/p neurogenic claudication due to lumbar spinal stenosis. 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 Lemus EBL 100mL [id number]. Per ortho for pain control, wound care, anticoagulation and activities continue incentive spirometry PT/OT when appropriate HTN: stable; continue Amlodipine and HCTZ Multiple Sclerosis: Symptoms well controlled with Rebif M/W/F Family says they have the medication at home Follows Neurology in [place] yearly. Disposition: PCP: Dr. Santo VTE Prophylaxis: TEDs/SCDS Code: Full Admission and Anticipated Discharge Date Admission Date: August 10, 2022 Subjective Patient seen and examined at bedside. He is sitting up on the bed; not in any distress. Childers was taken out and patient is voiding well. He denies any fever, chills, chest pain, shortness of breath or abdominal pain. Review of Systems Review of Systems: All systems reviewed & are unremarkable except as noted in Subjective Physical Exam Physical Exam: Constitutional: WD/WN, vitals as above, NAD, sitting up in bed, pleasant, conversing easily Respiratory: normal respiratory effort, lungs clear to auscultation, no wheeze, rales, rhonchi. Normal insp/exp effort, no accessory muscle use Cardiovascular: RRR, no murmur, no edema Vessels: no JVD or carotid bruit Chest: normal inspection of chest Abdomen: normal bowel sounds, soft, nontender, no hepatosplenomegaly Musculoskeletal: no cyanosis or clubbing, extremities motor strength 5/5. Dressing clean dry and intact in the back. Skin: no rashes, warm and dry normal turgor Neurologic: PERRL, EOMI, accommodation nl, no face palsy, no dysarthria CN's II- XI intact bilaterally and moves all extremities Psychiatric: A+Ox3, euthymic affect Lymphatic: no cervical or axillary lymphadenopathy : deferred Results & Data Results & Data ([facility]) Vital Signs (Past 12 Hours) Vital Signs Temp Pulse Resp BP Pulse Ox O2 Del Method 08/12/22 14:18 36.6 C 71 18 144/84 H 96 Room Air 08/12/22 07:45 36.6 C 70 17 133/88 96 Room Air
[2022-08-12] MEDS: DOCUSATE SODIUM/SENNA 50/8.6MG TAB PO SCH (21:37)
[2022-08-12] MEDS: ACETAMINOPHEN 500 MG TAB PO PRN (21:39)
[2022-08-13] MEDS: dexAMETHasone 6 MG in SYRINGE 0 ML IV SCH (08:46)
[2022-08-13] MEDS: traMADol HCL 50 MG TABLET PO PRN (08:47)
[2022-08-13] MEDS: amLODIPine BESYLATE 5 MG TAB PO SCH (08:47)
--- NOTE | 2022-08-13 11:23 | Discharge Summary ---
Date of Service August 13, 2022 Principal Diagnosis Lumbar spinal stenosis and claudication Discharge Data Allergies Allergy/AdvReac Type Severity Reaction Status Date / Time No Known Allergies Allergy Verified 08/10/22 13:29 Consultations 08/10/22 18:23 Consult Hospitalist Routine Procedures Performed Operation Date: 08/10/22 14:45 Actual Procedures p L5-S1 Revision Fusion, L4-S1 Decompression and Fusion, Use of Cement at Right L5 and S1, Spinal Cord Monitoring - Joce Lemus DO Ordered Studies 08/10/22 [place] lumbar spine 2-3V Routine Hospital Course (1) Neurogenic claudication due to lumbar spinal stenosis: Patient went revision lumbar decompression fusion tolerated so was taken to orthopedic for postoperative postop day 1 he was ambulating well tolerated therapy progress postop day #2 and 3. EBEN drain decreased probably. Pain well controlled. Subsequently discharged home. Discharge orders instructions from the chart for further view. Total Time Total Time Spent Total Time Spent (In Minutes): 20 minutes Discharge Plan Discharge Items Patient Disposition: Home - Self-Care Reason For Visit: Interverbral Disc Degeneration, Lumbar Region Discharge Diagnosis: Lumbar spinal stenosis with neurogenic claudication and nonunion of L5-S1 Activity: As commented below Non-emergency contact: Primary Care Provider Call non-emergency contact if: you have any medication questions Follow-up/Referrals: Sorin Santo MD [Primary Care Provider] - Diet: Regular Addtl Attending Provider Instructions: ACTIVITY RECOMMENDATIONS: SELF CARE INSTRUCTIONS AFTER THORACIC/LUMBAR FUSIONS 1. You may walk to your tolerance. It is good exercise for your legs and back. Expect some back and intermittent leg aches and pains. 2. You may perform "counter-top" level activities (make a sandwich, steph with a project, etc.). 3. No bending or lifting of more than 10 pounds or back twisting of any nature (roll like a log when turning in bed). 4. You may ride in a car for 20-30 minutes at a time. No driving until after your first visit with your doctor. 5. Frequent changes of position and restricting sitting to 30 minutes at a time will help limit the amount of back spasms and stiffness you may experience. 6. You may discontinue the use of ambulatory aids (cane, crutches, etc.) once your strength and confidence allow. 7. You may scow captain the shower and let water strike your incision when you arrive home at least once daily. Do not take a tub bath, sit in a hot tub or go into a swimming pool until after your first recheck in the office. SPECIAL CARE INSTRUCTIONS: VERY IMPORTANT TO READ AND REVIEW A. Your surgical incision has been closed with a cosmetic suture under the skin that will dissolve in about 6 weeks. In 14 days, you can use a pair of clean scissors and cut the suture that is left outside of the skin at the ends of your incision. 1. The small skin tapes can be removed 7 days after surgery if they have not fallen off by that point. 2. You may keep the wound open to air as much as possible to promote healing after post-op day number 5 unless told otherwise by your doctor. 3. If you think the wound looks like it is becoming infected (redness or worsening drainage) and/or you are experiencing fever, chill or worsening back pain and muscle spasms, contact the office so that we may evaluate you as soon as possible. B. Complications are uncommon, but please contact us if you have any signs or symptoms of: 1. wound infection (fever higher than 102.5 degrees F, redness, separation of wound, drainage, or increasing pain from the incision) 2. blood clots in legs (pain, swelling, redness and warmth in legs) 3. urinary tract infection (fever higher than 102.5 degrees F, burning upon urination or increased frequency of urination) 4. nerve problems (inability to walk on your toes or heels, numbness, loss of bowel or bladder control) 5. any other symptoms that concern you C. Please call the office at if you have any concerns or questions about your operation or recovery. D. No smoking! Smoking drastically decreases the chance of a solid fusion. E. Do not take any anti-inflammatory medications (Indocin, Advil, Motrin, Aspirin, Naprosyn, etc.) as these may inhibit the chance of a solid fusion. Tylenol is okay to take for pain. MANAGING PAIN AFTER SPINAL SURGERY 1. Narcotic medication is intended for short-term use and will be provided for surgical pain. Surgical pain usually lasts for a period of 4-6 weeks. Narcotic medication includes Percocet, Vicodin, Darvocet, Tylenol #3 or Lortab. 2. Longer-term pain is more appropriately treated with non-narcotic medication such as Tylenol ES. 3. Muscle spasm is not appropriately treated with narcotics. Muscle relaxers such as Soma, Flexeril or Skelaxin can be used along with Tylenol ES. 4. Remember that we all live with some "aches and pains". This is not unusual or uncommon after an injury or as we get older. a. Back pain is expected and may include muscle spasms for 4 to 6 weeks after surgery. The pain should gradually improve. If the pain worsens for no apparent reason, please contact the office. b. Intermittent leg pain may also be experienced and should not be concerned about unless it worsens for no apparent reason. If so, please contact the office. 5. We will provide appropriate medication within the normal guidelines of their prescribed use. We will also be very cautious and aware of potential abuse and extended duration of patients' medication needs. a. Pain medications are for your comfort and to assist with sleep and rest so that the tissue can heal. They are not provided in order to return to normal activity and should not be used through the day. To do so or worsening pain at night can result from ongoing tissue damage and development of tolerance to the prescribed medicine. 6. Please allow 2-3 days to process refills. Prescriptions will not be mailed but must be picked up at the office. FOLLOW UP VISIT: Keep your scheduled follow-up appointment. Any questions, please call the office at . Pending Studies at Discharge: No Stand-Alone Forms: [facility], Smoking Cessation Medications and DC Order Prescriptions: New tramadol 50 mg tablet 50 mg PO Q6H PRN (Reason: pain, moderate) Qty: 30 0RF oxycodone 5 mg tablet 5 mg PO Q6H PRN (Reason: pain, severe) Qty: 30 0RF Continued acetaminophen [Tylenol Extra Strength] 500 mg Tablet 1,000 mg PO Q6H PRN (Reason: Pain) Rebif (with albumin) 44 mcg/0.5 mL syringe 0.5 ml SUBCUT [id number] Rx Instructions: ADMINISTER EVERY WEDNESDAY,WEDNESDAY AND WEDNESDAY at bedtime amlodipine 2.5 mg Tablet 2.5 mg PO QAM hydrochlorothiazide 12.5 mg capsule 12.5 mg PO DAILY oxycodone 5 mg tablet 5 mg PO Q4H PRN (Reason: pain) Qty: 15 0RF Discharge Orders: Discharge Order (Routine); Ordered 08/13/22 Ordered By: Joce Lemus Admission Data Admit Date/Time: 08/10/22 17:10 Attending Provider: Joce Lemus Admit Provider: Joce Lemus Primary Care Provider: Sorin Santo Other Providers: Dunia Ott ; Jeovanny Mancia
--- NOTE | 2022-08-13 12:17 | Hospitalist Progress Note ---
Date of Service August 13, 2022 Assessment & Plan (1) Neurogenic claudication due to lumbar spinal stenosis: (2) Lumbar disc disease with radiculopathy: (3) Hypertension: (4) Multiple sclerosis: Plan: Mr. Kilpatrick is a 47 raul old male who presented to Dr. Lemus with worsening back pain and sciatica. He did have a positive response from his L4- L5 facet blocks; however, only for a week. He underwent surgical decompression on 08/10 and the [facility] were consulted for post-op medical management. Neurogenic claudication d/t lumbar spinal stenosis Lumbar disc disease with radiculopathy: POD#3 s/p neurogenic claudication due to lumbar spinal stenosis. 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 Lemus EBL 100mL [id number]. Per ortho for pain control, wound care, anticoagulation and activities continue incentive spirometry HTN: stable; continue Amlodipine and HCTZ Multiple Sclerosis: Symptoms well controlled with Rebif M/W/F Follows Neurology in [place] yearly. Disposition: PCP: Dr. Santo VTE Prophylaxis: TEDs/SCDS Code: Full Admission and Anticipated Discharge Date Admission Date: August 10, 2022 Subjective Patient seen and examined at bedside. He is sitting up on the bed eating breakfast; not in any distress. He denies fever, chills, shortness of breath, chest pain, urinary symptoms or abdominal pain. Review of Systems Review of Systems: All systems reviewed & are unremarkable except as noted in Subjective Physical Exam Physical Exam: Constitutional: WD/WN, vitals as above, NAD, sitting up in bed, pleasant, conversing easily Respiratory: normal respiratory effort, lungs clear to auscultation, no wheeze, rales, rhonchi. Normal insp/exp effort, no accessory muscle use Cardiovascular: RRR, no murmur, no edema Vessels: no JVD or carotid bruit Chest: normal inspection of chest Abdomen: normal bowel sounds, soft, nontender, no hepatosplenomegaly Musculoskeletal: no cyanosis or clubbing, extremities motor strength 5/5. Dressing clean dry and intact in the back. Skin: no rashes, warm and dry normal turgor Neurologic: PERRL, EOMI, accommodation nl, no face palsy, no dysarthria CN's II- XI intact bilaterally and moves all extremities Psychiatric: A+Ox3, euthymic affect Lymphatic: no cervical or axillary lymphadenopathy : deferred Results & Data Results & Data ([facility]) Vital Signs (Past 12 Hours) Vital Signs Temp Pulse Pulse Resp BP BP Pulse Ox 08/13/22 11:30 36.9 C 66 59 L 16 126/76 132/88 96 08/13/22 07:54 36.9 C 59 L 16 132/88 96 O2 Del Method 08/13/22 11:30 08/13/22 07:54 Room Air Laboratory Results Laboratory Results WBC 10.82 K/ul (4.8-10.8) H 08/11/22 06:33 RBC 4.05 M/uL (4.63-6.08) L 08/11/22 06:33 Hgb 12.3 g/dl (14.0-18.0) L 08/11/22 06:33 Hct 36.3 % (40.1-51.0) L 08/11/22 06:33 MCV 89.6 fL (80.0-100.0) 08/11/22 06:33 MCH 30.4 pg (25.0-34.0) 08/11/22 06:33 MCHC 33.9 g/dL (32.0-36.0) 08/11/22 06:33 RDW Std Deviation 43.7 fL (36.4-46.3) 08/11/22 06:33 RDW Coeff of Ezra 13.3 % (11.5-14.5) 08/11/22 06:33 Plt Count 236 K/uL (130-400) 08/11/22 06:33 MPV 11.0 fL (9.4-12.4) 08/11/22 06:33 Immature Gran % (Auto) 0.2 % 08/11/22 06:33 Neut % (Auto) 82.5 % 08/11/22 06:33 Lymph % (Auto) 11.6 % 08/11/22 06:33 [place] % (Auto) 5.7 % 08/11/22 06:33 Eos % (Auto) 0.0 % 08/11/22 06:33 Baso % (Auto) 0.0 % 08/11/22 06:33 Neut # (Auto) 8.93 K/uL (1.4-6.5) H 08/11/22 06:33 Lymph # (Auto) 1.25 K/uL (1.2-3.4) 08/11/22 06:33 [place] # (Auto) 0.62 K/uL (0.24-0.82) 08/11/22 06:33 Eos # (Auto) 0.00 K/uL (0-0.50) 08/11/22 06:33 Baso # (Auto) 0.00 K/uL (0-0.2) 08/11/22 06:33 Immature Gran # (Auto) 0.02 K/uL (0.00-0.02) 08/11/22 06:33 Sodium 136 mmol/L (136-145) 08/11/22 06:33 Potassium 4.0 mmol/L (3.5-5.1) 08/11/22 06:33 Chloride 102 mmol/L (98-107) 08/11/22 06:33 Carbon Dioxide 25 mmol/L (21-32) 08/11/22 06:33 Anion Gap 9 (3-11) 08/11/22 06:33 BUN 19 mg/dl (6-23) 08/11/22 06:33 Creatinine 0.80 mg/dl (0.6-1.4) 08/11/22 06:33 Est Cr Clr Drug Dosing 144.9 ml/min 08/11/22 06:33 Est GFR ( Amer) 124.2 ml/min 08/11/22 06:33 Est GFR (Non-Af Amer) 107.1 ml/min 08/11/22 06:33 BUN/Creatinine Ratio 23.8 (10-20) H 08/11/22 06:33 Glucose 117 mg/dl (70-99(Fasting)) H 08/11/22 06:33 Calcium 9.1 mg/dl (8.5-10.1) 08/11/22 06:33 SARS-CoV-2, RNA, NAAT NEGATIVE (NEGATIVE) 08/10/22 13:20 Blood Type A Positive 08/11/22 06:33 Antibody Screen NEGATIVE 08/11/22 06:33 Crossmatch See Detail 08/11/22 06:33 Impressions Lumbar Spine X-Ray 08/10/22 00:00 [place] lumbar spine 2-3V CLINICAL HISTORY: L5-S1 REVISION/FUSION, POSSIBLE L4-L5 TECHNIQUE: 2 views were obtained with the C-arm in the OR with the above procedure. Total fluoroscopy time was 15.6 seconds. Total skin dose was 10.81 mGy. Comparison: Comparison is made to fluoroscopy of lumbar spine 01-[address] lumbar spine 07/03/2022 FINDINGS/IMPRESSION: Intraoperative images were obtained of L5-S1 revision and fusion. Please correlate with intraoperative fluoroscopy and operative report. ACT 112: Negative or not required by law. Electronically signed by: Antonio Etienne M.D. 08/10/2022 5:17 PM
== END 2022-08-13 13:15 | disposition home or self-care (01) ==
LOC: ASU 13:10 → INTOOBSV 17:10 → 3W 17:10

== ENCOUNTER 2023-02-12 10:35 | Inpatient (IN) ==
[2023-02-12] MEDS ORDERED: SODIUM CHLORIDE 0.9% 1000ML 1,000 ML IV STA (10:58)
--- NOTE | 2023-02-12 11:31 | Emergency Department Note ---
History of Present Illness General Chief complaint: Abdominal Pain Stated complaint: ABD PAIN Time Seen by Provider: 02/12/23 10:48 History of Present Illness Maximum Pain Intensity: 7 47 year old male who presents to ED today for evaluation of constipation. Patient states his last BM was days ago. He started with associated diffuse abdominal discomfort yesterday. He is burping, no flatus. He attempted Miralax and did a saline enema last evening with no relief. He has been able to eat /drink without issue. He denies nausea/vomiting, fever, chills, chest pain, SOB, hematochezia, melena. He has noted some urinary frequency/burning over the last couple days as well. He denies history of constipation. No previous abdominal surgeries or history of diverticulosis or IBD. Denies dietary or medication changes. History of MS. Home Medications Medication Instructions Recorded Confirmed Type acetaminophen 500 mg tablet 1,000 mg PO Q6H PRN Pain 10/06/20 10/20/22 History (Tylenol Extra Strength) interferon beta-1a (albumin) 44 0.5 ml subcut 3XWK 10/07/20 10/20/22 History mcg/0.5 mL subcutaneous syringe (Rebif (with albumin)) tramadol 50 mg tablet 50 mg PO Q6H PRN pain, moderate 08/11/22 10/20/22 Rx #30 tabs amlodipine 5 mg tablet 5 mg PO DAILY 10/20/22 10/20/22 History baclofen 10 mg tablet 10 mg PO UD 10/20/22 10/20/22 History hydrochlorothiazide 25 mg tablet 25 mg PO DAILY 10/20/22 10/20/22 History ondansetron HCl 4 mg tablet 4 mg PO TID 10/20/22 10/20/22 History Allergies Allergy/AdvReac Type Severity Reaction Status Date / Time No Known Allergies Allergy Verified 10/20/22 19:42 Past Med/Surg History Medical History Diverticular disease pt denies h/o diverticulitis Finger fracture, left ring finger. 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 03/31/19 and 04/21/19: LMA#5. History of lumbar surgery L5-S1 decompression fusion 12/17/21: Grade 2 view, MAC 3, ETT 7.5. History of tooth extraction Hx of vasectomy Family History Father Family history of diabetes mellitus Other Family history of breast cancer in mother Social History Smoking Status: Never smoker Second Hand Exposure: No; Hx Alcohol Use: No Hx Substance Use: No Preferred Language: Egyptian Communication Ability: Effective Skin Toggler Required: No Beliefs That Will Affect Care: None marital status: Current Living Situation: Spouse and Family current occupational status: employed How many Children do You have: 3 Feels Safe at Home: Yes Assistive Devices: None Physical Exam Vital Signs Vital Signs - 24 hr 02/12/23 10:38 02/12/23 10:54 02/12/23 11:38 Temperature 36.6 C Temperature Source Temporal Artery Scan Pulse Rate 114 H 78 Pulse Rate [Right Finger] 105 H Pulse Rhythm Regular Pulse Rhythm [Right Finger] Regular Pulse Strength [Right Finger] Normal Respiratory Rate 20 18 Respiratory Effort / Characteristics Non-Labored Spontaneous Non-Labored Spontaneous Respiratory Depth Normal Normal Respiratory Pattern Regular Regular Blood Pressure 138/83 Blood Pressure [Right Arm] 119/91 Blood Pressure Mean 101 Blood Pressure Mean [Right Arm] 100 Blood Pressure Position Sitting Blood Pressure Position [Right Arm] Lying Pulse Oximetry 94 99 95 Oxygen Delivery Method Room Air Room Air Room Air Sepsis Recent Fever Within 48 Hours No Sepsis New/Unexplained Change in Mental Status N/A Sepsis Action Taken by Nursing No Action Required 02/12/23 15:44 Temperature Temperature Source Pulse Rate 122 H Pulse Rate [Right Finger] Pulse Rhythm Pulse Rhythm [Right Finger] Pulse Strength [Right Finger] Respiratory Rate 20 Respiratory Effort / Characteristics Respiratory Depth Respiratory Pattern Blood Pressure 119/91 Blood Pressure [Right Arm] Blood Pressure Mean 100 Blood Pressure Mean [Right Arm] Blood Pressure Position Blood Pressure Position [Right Arm] Pulse Oximetry 97 Oxygen Delivery Method Room Air Sepsis Recent Fever Within 48 Hours Sepsis New/Unexplained Change in Mental Status Sepsis Action Taken by Nursing Constitutional: alert and oriented x3. no acute distress. Respiratory: lungs are clear to auscultation without wheezes, rhonchi, or rales bilaterally. equal chest rise. normal respiratory effort, no accessory muscle use. Cardiovascular: normal heart sounds without murmur. regular rate and rhythm. GI: abdomen is distended, soft, with diffuse tenderness. nl bowel sounds present throughout. No palpable masses. No rebound tenderness or guarding. Psych:appropriate mood and affect. Course Administered Medications Discontinued Medications Sodium Chloride (Nss 1000ml) 1,000 mls @ 999 mls/hr IV .Q1H1M STA Stop: 02/12/23 11:58 Last Infusion: 02/12/23 12:11 Dose: 0 mls/hr Documented By: Admin: 02/12/23 11:30 Dose: 999 mls/hr Documented By: KLARISSA Piperacillin Sod/Tazobactam Sod (Zosyn) 4.5 gm in 120 mls @ 240 mls/hr IV NOW ONE Stop: 02/12/23 15:52 Last Infusion: 02/12/23 16:02 Dose: 0 mls/hr Documented By: Admin: 02/12/23 15:26 Dose: 240 mls/hr Documented By: CHRISTY Sodium Chloride (Nss 1000ml) 1,000 mls @ 999 mls/hr IV .Q1H1M ONE Stop: 02/12/23 16:30 Last Admin: 02/12/23 15:37 Dose: 999 mls/hr Documented By: CHRISTY Ioversol (Optiray 350 100ml) 90 ml IV ONCE ONE Stop: 02/12/23 14:25 Last Admin: 02/12/23 14:25 Dose: 90 ml Documented By: PAUL Morphine Sulfate (Morphine Sulfate 4 Mg/Ml 1 Ml Carp\Vial) 4 mg IV NOW STA Stop: 02/12/23 15:31 Last Admin: 02/12/23 15:37 Dose: 4 mg Documented By: CHRISTY Ondansetron HCl (Ondansetron Inj 2 Mg/Ml 2 Ml Vial) 4 mg IV NOW STA Stop: 02/12/23 14:51 Last Admin: 02/12/23 14:53 Dose: 4 mg Documented By: [facility] Medical Decision Making Differential Diagnosis constipation, SBO, diverticulitis, crohn's/UC, appendicitis, hernia, volvulus as well as other pathologies Laboratory Data Attestation: I reviewed the patient's lab results. 02/12/23 11:31 02/12/23 11:31 Lab Results 02/12/23 02/12/23 02/12/23 Range/Units 11:31 11:31 Unknown WBC 13.37 H (4.8-10.8) K/ul RBC 4.32 L (4.70-6.10) M/uL Hgb 13.4 L (14.0-18.0) g/dl Hct 39.4 L (42.0-52.0) % MCV 91.2 (80.0-100.0) fL MCH 31.0 (25.0-34.0) pg MCHC 34.0 (32.0-36.0) g/dL RDW Std Deviation 45.5 (36.4-46.3) fL RDW Coeff of Ezra 13.5 (11.5-14.5) % Plt Count 279 (130-400) K/uL MPV 11.2 (9.4-12.4) fL Immature Gran % (Auto) 0.3 % Neut % (Auto) 85.5 % Lymph % (Auto) 7.8 % Mora % (Auto) 6.1 % Eos % (Auto) 0.1 % Baso % (Auto) 0.2 % Neut # (Auto) 11.43 H (1.40-6.50) K/uL Lymph # (Auto) 1.04 L (1.2-3.4) K/uL Mora # (Auto) 0.82 H (0.11-0.59) K/uL Eos # (Auto) 0.01 (0-0.50) K/uL Baso # (Auto) 0.03 (0-0.2) K/uL Immature Gran # (Auto) 0.04 (0.01-0.20) K/uL Sodium 136 (136-145) mmol/L Potassium 3.5 (3.5-5.1) mmol/L Chloride 102 (98-107) mmol/L Carbon Dioxide 25 (21-32) mmol/L Anion Gap 9 (3-11) BUN 19 (6-23) mg/dl Creatinine 0.73 (0.6-1.4) mg/dl Est Cr Clr Drug Dosing 160.9 ml/min Est GFR ( Amer) 128.9 ml/min Est GFR (Non-Af Amer) 111.2 ml/min BUN/Creatinine Ratio 26.0 H (10-20) Glucose 100 H (70-99(Fasting)) mg/dl Calcium 9.5 (8.6-10.3) mg/dl Total Bilirubin 0.8 (0.2-1.0) mg/dl AST 16 (13-39) U/L ALT 37 (7-52) U/L Alkaline Phosphatase 60 (34-104) U/L Total Protein 7.5 (6.0-8.3) gm/dl Albumin 4.2 (3.4-5.0) gm/dl Globulin 3.3 (2.5-4.0) gm/dl Albumin/Globulin Ratio 1.3 (0.9-2) Lipase 14 (11-82) U/L Urine Color Dark Yellow Urine Appearance Clear (Clear) Urine pH 6.5 (4.5-7.5) Ur Specific [place] 1.029 (1.000-1.030) Urine Protein Trace H (Negative) Urine Glucose (UA) Negative (Negative) Urine Ketones 1+ H (Negative) Urine Blood Negative (Negative) Urine Nitrite Negative (Negative) Urine Bilirubin Negative (Negative) Urine Urobilinogen Negative (Negative) Ur Leukocyte Esterase Negative (Negative) Urine WBC (Auto) 1-5 (0-5) /hpf Urine RBC (Auto) 0-4 (0-4) /hpf U Hyaline Cast (Auto) 1-5 (0-5) /lpf U Epithel Cells (Auto) 5-10 H (0-5) /lpf Urine Bacteria (Auto) 1+ H (Negative) Ur Renal Epithelial Cell Not Reportable Urine Mucus Present A (None Prsent) Imaging Data Attestation: I personally reviewed and interpreted this imaging study as follows: My Impression: KUB was personally interpreted by me and demonstrates small amount of stool in rectum. No evidence of obstruction or free air. Radiologist's Impression: KUB X-Ray 02/12/23 10:58 XR KUB/Abdomen 1 view CLINICAL HISTORY: constipation TECHNIQUE: 1 view of the abdomen was obtained. Comparison: Comparison is made to CT abdomen pelvis 10/10/2020 FINDINGS: Lung bases are unremarkable. Posterior fixation hardware is seen in the lumbar spine. No significant bowel gas is seen. Small stool burden is seen. IMPRESSION: No evidence of obstruction or fecal impaction. ACT 112: Negative or not required by law. Electronically signed by: Antonio Etienne M.D. 02/12/2023 12:14 PM Abdomen/Pelvis CT 02/12/23 14:[address] WITH IV CONTRAST CT DOSE: 788.79 mGy.cm HISTORY: Acute generalized abdominal pain with constipation diffuse abdominal pain, constipation TECHNIQUE: Multiaxial CT images of the abdomen and pelvis were performed follow ing the IV administration of 90 cc of Optiray, A dose lowering technique was utilized adhering to the principles of ALARA. COMPARISON STUDY: KUB of same day CT abdomen and pelvis 10/10/2020, CT lumbar spine 01/21/2023. FINDINGS: Cardiomegaly. Subsegmental bibasilar atelectasis with a few scattered calcified pulmonary granulomata. Pneumoperitoneum is most pronounced in the upper abdomen. Unremarkable spleen, pancreas and adrenal glands. The gallbladder is within normal limits. Hepatomegaly with hepatic steatosis. No evidence of cirrhosis. Patency of the hepatic and portal veins. 2.6 cm cyst of the superior pole right kidney. 3 mm nonobstructing calculus of the inferior pole left kidney. No ureteral calculi or hydronephrosis. Urinary bladder wall thickening with partial distention. Prostamegaly. Small fat filled left inguinal hernia. No abdominal aortic aneurysm or lymphadenopathy. Tiny hiatal hernia. Acute sigmoid diverticulitis with inflammatory stranding trace fluid within the sigmoid mesocolon. No drainable abscess. Scattered colonic air-fluid levels with mild gaseous distention in moderate fecal retention. Several loops of ileum demonstrating circumferential wall thickening within the lower abdomen and pelvis. Normal appendix. No acute fracture. Posterior interbody randy and screw fusion hardware with discectomy at L4-S1. There is evidence of loosening involving the bilateral S1 screws. IMPRESSION: 1. Acute sigmoid diverticulitis with pneumoperitoneum compatible with perforation. No abscess. 2. Several loops of ileum demonstrating circumferential wall thickening within the lower abdomen and pelvis, likely reactive. 3. Posterior interbody randy and screw fusion with discectomy at L4-S1 with ev idence of hardware loosening. 4. Normal appendix. 5. Left nephrolithiasis. ACT 112: Negative or not required by law. The above report was generated using voice recognition software. It may contain grammatical, syntax or spelling errors. Electronically signed by: Aneesh Lacy M.D. 02/12/2023 3:15 PM MDM Narrative 47 year old male who presents to ED today with c/o constipation x 5 days. Review of pertinent visits and patient history performed. Vital signs in ED within normal limits, afebrile. IV access was established and labs were obtained. CBC demonstrates leukocytosis 13 with left shift. No anemia. CMP without evidence of significant electrolyte abnormalities. No transaminitis. Lipase within normal limits. Urinalysis demonstrates no evidence of infection or blood. KUB was obtained and personally reviewed as well as interpreted by radiology and demonstrates small stool burden otherwise unremarkable. No evidence of obstruction or free air. Clinically, patient is nontoxic appearing in no acute distress. Abdomen is mildly distended but otherwise soft with mild diffuse tenderness. No rebound tenderness or guarding. He was given 1L IV fluids. He declined need for pain or nausea medications. Upon re-evaluation, patient remains stable with no new concerns. He was updated on results of KUB. We discussed options for treatment of acute constipation. He was given a milk and molasses enema with minimal results after an hour. Lab r esults unfortunately were delayed but following evidence of leukocytosis and relatively small amount of stool burden on KUB, there was concern for other intraabdominal pathology, therefore a CT abd/pelvis with contrast was obtained. This demonstrates acute sigmoid diverticulitis with pneumoperitoneum compatible with a perforation. No evidence of abscess. At the time of updating patient on CT results, he appears to be in more discomfort following enema. His abdomen is now rigid. He was agreeable to pain medications at this time. He was given IV morphine and Zofran as well as more fluids. Given findings, consultation was made to on-call general surgery, Dr. Taylor and MILI Oliveros, who came to evaluate patient at bedside. They are recommending emergency exploratory laparotomy and repair. He was given dose of Zosyn preoperatively. Please see surgery note for further details. Patient was taken to OR in stable condition. Impression & Plan Diverticulitis of intestine with perforation, Acute constipation, Diffuse abdominal pain Discharge Plan Visit Data Chief Complaint: Abdominal Pain Stated Complaint: ABD PAIN ED Provider: Philippe Lee ED Midlevel Provider: Pippa Chaudhry Prescriptions Prescriptions: No Action acetaminophen [Tylenol Extra Strength] 500 mg Tablet 1,000 mg PO Q6H PRN (Reason: Pain) Rebif (with albumin) 44 mcg/0.5 mL syringe 0.5 ml SUBCUT 3XWK Rx Instructions: ADMINISTER EVERY WEDNESDAY,WEDNESDAY AND WEDNESDAY at bedtime tramadol 50 mg tablet 50 mg PO Q6H PRN (Reason: pain, moderate) Qty: 30 0RF ondansetron HCl 4 mg tablet 4 mg PO TID amlodipine 5 mg tablet 5 mg PO DAILY baclofen 10 mg tablet 10 mg PO UD hydrochlorothiazide 25 mg tablet 25 mg PO DAILY
--- NOTE | 2023-02-12 12:15 | XRay Report ---
XR KUB/Abdomen 1 view CLINICAL HISTORY: constipation TECHNIQUE: 1 view of the abdomen was obtained. Comparison: Comparison is made to CT abdomen pelvis 10/10/2020 FINDINGS: Lung bases are unremarkable. Posterior fixation hardware is seen in the lumbar spine. No significant bowel gas is seen. Small stool burden is seen. IMPRESSION: No evidence of obstruction or fecal impaction. ACT 112: Negative or not required by law. Electronically signed by: Antonio Etienne M.D. 02/12/2023 12:14 PM
[2023-02-12 12:30] LABS: Appearance Urine Clear (Clear); Bilirubin Urine Negative (Negative); Blood Urine Negative (Negative); Color Urine Dark Yellow; Glucose Urine UA Negative (Negative); Ketones Urine 1+ (Negative); Leukocyte Esterase Urine Negative (Negative); Nitrite Urine Negative (Negative); Protein Urine Trace (Negative); RBC Urine Automated 0-4 /hpf (0-4); Specific Gravity Urine 1.029 (1.000-1.030); Urobilinogen Urine Negative (Negative); pH Urine 6.5 (4.5-7.5)
[2023-02-12 12:41] LABS: Albumin Globulin Ratio 1.3 (0.9-2); Albumin Level 4.2 gm/dl (3.4-5.0); Bilirubin,Total 0.8 mg/dl (0.2-1.0); Calcium 9.5 mg/dl (8.6-10.3); Creatinine Clr Calc Pharmacy 160.9 ml/min; Est GFR (African American) 128.9 ml/min; Est GFR (Non-African American) 111.2 ml/min; Globulin 3.3 gm/dl (2.5-4.0); Potassium 3.5 mmol/L (3.5-5.1); Total Protein 7.5 gm/dl (6.0-8.3)
[2023-02-12 12:47] LABS: Bacteria Urine Automated 1+ (Negative); Mucus Urine Present (None Prsent)
[2023-02-12 13:30] LABS: Hematocrit (blood only) 39.4 % (42.0-52.0); Hemoglobin 13.4 g/dl (14.0-18.0); Mean Corpuscular Volume 91.2 fL (80.0-100.0); Mean Platelet Volume 11.2 fL (9.4-12.4); Platelet Count 279 K/uL (130-400); RDW Coefficient of Variation 13.5 % (11.5-14.5); RDW Standard Deviation 45.5 fL (36.4-46.3); Red Blood Count 4.32 M/uL (4.70-6.10); White Blood Count 13.37 K/ul (4.8-10.8)
[2023-02-12 13:52] LABS: Basophils # (auto) 0.03 K/uL (0-0.2); Basophils % (auto) 0.2 %; Eosinophils # (auto) 0.01 K/uL (0-0.50); Eosinophils % (auto) 0.1 %; Immature Granulocytes # (auto) 0.04 K/uL (0.01-0.20); Immature Granulocytes % (auto) 0.3 %; Lymphocytes # (auto) 1.04 K/uL (1.2-3.4); Lymphocytes % (auto) 7.8 %; Monocytes # (auto) 0.82 K/uL (0.11-0.59); Monocytes % (auto) 6.1 %; Neutrophils # (auto) 11.43 K/uL (1.40-6.50); Neutrophils % (auto) 85.5 %
[2023-02-12] MEDS ORDERED: OPTIRAY 350 100ml IV ONE (14:24)
[2023-02-12] MEDS ORDERED: ONDANSETRON INJ 2 MG/ML 2 ML VIAL IV STA (14:50)
--- NOTE | 2023-02-12 15:16 | CT Scan Report ---
ABDOMEN AND PELVIS CT WITH IV CONTRAST CT DOSE: 788.79 mGy.cm HISTORY: Acute generalized abdominal pain with constipation diffuse abdominal pain, constipation TECHNIQUE: Multiaxial CT images of the abdomen and pelvis were performed following the IV administrat ion of 90 cc of Optiray, A dose lowering technique was utilized adhering to the principles of ALARA. COMPARISON STUDY: KUB of same day CT abdomen and pelvis 10/10/2020, CT lumbar spine 01/21/2023. FINDINGS: Cardiomegaly. Subsegmental bibasilar atelectasis with a few scattered calcified pulmonary g ranulomata. Pneumoperitoneum is most pronounced in the upper abdomen. Unremarkable spleen, pancreas a nd adrenal glands. The gallbladder is within normal limits. Hepatomegaly with hepatic steatosis. No e vidence of cirrhosis. Patency of the hepatic and portal veins. 2.6 cm cyst of the superior pole right kidney. 3 mm nonobstructing calculus of the inferior pole left kidney. No ureteral calculi or hydronephrosis. Urinary bladder wall thickening with partial distenti on. Prostamegaly. Small fat filled left inguinal hernia. No abdominal aortic aneurysm or lymphadenopa thy. Tiny hiatal hernia. Acute sigmoid diverticulitis with inflammatory stranding trace fluid within the s igmoid mesocolon. No drainable abscess. Scattered colonic air-fluid levels with mild gaseous distenti on in moderate fecal retention. Several loops of ileum demonstrating circumferential wall thickening within the lower abdomen and pelvis. Normal appendix. No acute fracture. Posterior interbody randy and screw fusion hardware with discectomy at L4-S1. There is evidence of loosening involving the bilatera l S1 screws. IMPRESSION: 1. Acute sigmoid diverticulitis with pneumoperitoneum compatible with perforation. No abscess. 2. Several loops of ileum demonstrating circumferential wall thickening within the lower abdomen and pelvis, likely reactive. 3. Posterior interbody randy and screw fusion with discectomy at L4-S1 with evidence of hardware loosen ing. 4. Normal appendix. 5. Left nephrolithiasis. ACT 112: Negative or not required by law. The above report was generated using voice recognition software. It may contain grammatical, syntax o r spelling errors. Electronically signed by: Aneesh Lacy M.D. 02/12/2023 3:15 PM
[2023-02-12] MEDS ORDERED: PIPERACILLIN/TAZOBACTAM 4.5 GM/120 ML BAG IV ONE (15:23)
[2023-02-12] MEDS ORDERED: SODIUM CHLORIDE 0.9% 1000ML 1,000 ML IV ONE (15:30)
[2023-02-12] MEDS ORDERED: MoRPHine SULFATE 4 MG/ML 1 ML CARP\\VIAL IV STA (15:30)
[2023-02-12] MEDS ORDERED: HYDROmorphone INJ 1 MG/ML SYRINGE IV STA (16:34)
[2023-02-12] MEDS ORDERED: ATROPINE SULFATE 0.1 MG/ML 10ML SYR IV PRN (16:40)
[2023-02-12] MEDS ORDERED: HYDROmorphone INJ 2 MG/ML SYR/VIAL IV PRN (16:40)
[2023-02-12] MEDS ORDERED: PROMETHAZINE HCL 6.25 MG in SODIUM CHLORIDE 0.9% 50 ML IV PRN (16:40)
[2023-02-12] MEDS ORDERED: fentaNYL citrate PF 100 MCG/2 ML VIAL IV PRN (16:40)
[2023-02-12] MEDS ORDERED: ONDANSETRON INJ 2 MG/ML 2 ML VIAL IV PRN ×2 (16:40→21:38)
[2023-02-12] MEDS ORDERED: ePHEDrine sulfate 50 MG/ML AMP IV PRN (16:40)
--- NOTE | 2023-02-12 16:44 | Anesthesiology Consultation ---
Date of Service February 12, 2023 Assessment & Plan (1) Encounter for pre-operative examination: Chart Review Chart Review: Acceptable Risk for Surgery and Patient NOT seen in Pre Admission Testing Consults Requested none History Surgery Operation Date: 02/12/23 11:40 Proposed Procedures p Diagnostic Laparotomy, Possible Exploratory Laparotomy, Possible Bowel Resection and Ostomy - Kushal Taylor, DO Height/Weight Height: 6 ft 1 in Weight: 105 kg Allergies Allergy/AdvReac Type Severity Reaction Status Date / Time No Known Allergies Allergy Verified 10/20/22 19:42 Medications Home Medications Medication Instructions Recorded Confirmed Last Taken acetaminophen 500 mg tablet 1,000 mg PO Q6H PRN Pain 10/06/20 10/20/22 08/09/22 07:00 (Tylenol Extra Strength) interferon beta-1a (albumin) 44 0.5 ml subcut 3XWK 10/07/20 10/20/22 08/07/22 mcg/0.5 mL subcutaneous syringe (Rebif (with albumin)) tramadol 50 mg tablet 50 mg PO Q6H PRN pain, moderate 08/11/22 10/20/22 Unknown #30 tabs amlodipine 5 mg tablet 5 mg PO DAILY 10/20/22 10/20/22 Unknown baclofen 10 mg tablet 10 mg PO UD 10/20/22 10/20/22 Unknown hydrochlorothiazide 25 mg tablet 25 mg PO DAILY 10/20/22 10/20/22 Unknown ondansetron HCl 4 mg tablet 4 mg PO TID 10/20/22 10/20/22 Unknown Past Medical History Medical History Diverticular disease pt denies h/o diverticulitis Finger fracture, left ring finger. 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 03/31/19 and 04/21/19: LMA#5. History of lumbar surgery L5-S1 decompression fusion 12/17/21: Grade 2 view, MAC 3, ETT 7.5. History of tooth extraction Hx of vasectomy Social History Smoking Status: Never smoker Hx Alcohol Use: No Alcohol type: beer alcohol intake frequency: other Hx Substance Use: No substance use type: does not use Physical Exam Vital Signs Last Vital Signs Temp 36.6 C 02/12/23 10:38 Pulse 122 H 02/12/23 15:44 Resp 20 02/12/23 15:44 BP 119/91 02/12/23 15:44 Pulse Ox 97 02/12/23 15:44 O2 Del Method Room Air 02/12/23 15:44 Testing Laboratory Results 02/12/23 11:31 02/12/23 11:31 Urine Color Dark Yellow 02/12/23 Unknown Urine Appearance Clear (Clear) 02/12/23 Unknown Urine pH 6.5 (4.5-7.5) 02/12/23 Unknown Ur Specific [place] 1.029 (1.000-1.030) 02/12/23 Unknown Urine Protein Trace (Negative) H 02/12/23 Unknown Urine Glucose (UA) Negative (Negative) 02/12/23 Unknown Urine Ketones 1+ (Negative) H 02/12/23 Unknown Urine Nitrite Negative (Negative) 02/12/23 Unknown Ur Leukocyte Esterase Negative (Negative) 02/12/23 Unknown Urine WBC (Auto) 1-5 /hpf (0-5) 02/12/23 Unknown Urine RBC (Auto) 0-4 /hpf (0-4) 02/12/23 Unknown U Hyaline Cast (Auto) 1-5 /lpf (0-5) 02/12/23 Unknown U Epithel Cells (Auto) 5-10 /lpf (0-5) H 02/12/23 Unknown Urine Bacteria (Auto) 1+ (Negative) H 02/12/23 Unknown Electrocardiogram Date: 10/20/22 DICTATED BY:Az Martinez MD Test Reason : Blood Pressure : / mmHG Vent. Rate : 119 BPM Atrial Rate : 119 BPM P-R Int : 092 ms QRS Dur : 090 ms QT Int : 424 ms P-R-T Axes : 042 023 017 degrees QTc Int : 596 ms Sinus tachycardia with short GA Possible Inferior infarct , age undetermined Prolonged QT Abnormal ECG When compared with ECG of 01-DEC-2021 13:38, GA interval has decreased Vent. rate has increased BY 56 BPM Borderline criteria for Inferior infarct are now Present T wave inversion now evident in Anterolateral leads Confirmed by Az Martinez ([id number]) on 10/21/2022 2:10:04 PM Chest X-Ray Date: 10/20/22 XR chest 1V portable HISTORY: Fever COMPARISON: Chest 12/01/2021. FINDINGS: There are low lung volumes. Cardiac silhouette is borderline enlarged. This is likely due to the low lung volumes and portable technique. No focal lung consolidations to suggest a pneumonia. No evidence for pulmonary edema. Prominence of the perihilar interstitial markings is also likely due to the AP portable technique. IMPRESSION: No focal lung consolidations to suggest a pneumonia. Other Testing CT abdomen 02/12/23: ABDOMEN AND PELVIS CT WITH IV CONTRAST CT DOSE: 788.79 mGy.cm HISTORY: Acute generalized abdominal pain with constipation diffuse abdominal pain, constipation TECHNIQUE: Multiaxial CT images of the abdomen and pelvis were performed following the IV administration of 90 cc of Optiray, A dose lowering technique was utilized adhering to the principles of ALARA. COMPARISON STUDY: KUB of same day CT abdomen and pelvis 10/10/2020, CT lumbar spine 01/21/2023. FINDINGS: Cardiomegaly. Subsegmental bibasilar atelectasis with a few scattered calcified pulmonary granulomata. Pneumoperitoneum is most pronounced in the upper abdomen. Unremarkable spleen, pancreas and adrenal glands. The gallbladder is within normal limits. Hepatomegaly with hepatic steatosis. No evidence of cirrhosis. Patency of the hepatic and portal veins. 2.6 cm cyst of the superior pole right kidney. 3 mm nonobstructing calculus of the inferior pole left kidney. No ureteral calculi or hydronephrosis. Urinary bladder wall thickening with partial distention. Prostamegaly. Small fat filled left inguinal hernia. No abdominal aortic aneurysm or lymphadenopathy. Tiny hiatal hernia. Acute sigmoid diverticulitis with inflammatory stranding trace fluid within the sigmoid mesocolon. No drainable abscess. Scattered colonic air-fluid levels with mild gaseous distention in moderate fecal re tention. Several loops of ileum demonstrating circumferential wall thickening within the lower abdomen and pelvis. Normal appendix. No acute fracture. Posterior interbody randy and screw fusion hardware with discectomy at L4-S1. There is evidence of loosening involving the bilateral S1 screws. IMPRESSION: 1. Acute sigmoid diverticulitis with pneumoperitoneum compatible with perforation. No abscess. 2. Several loops of ileum demonstrating circumferential wall thickening within the lower abdomen and pelvis, likely reactive. 3. Posterior interbody randy and screw fusion with discectomy at L4-S1 with evidence of hardware loosening. 4. Normal appendix. 5. Left nephrolithiasis.
[2023-02-12] MEDS ORDERED: MIDAZOLAM HCL 1 MG/ML 2ML VIAL ONE (16:46)
[2023-02-12] MEDS ORDERED: ROCURONIUM BROMIDE 10 MG/ML 5 ML VIAL IV ONE ×3 (16:46→19:01)
[2023-02-12] MEDS ORDERED: LIDOCAINE 2% MPF LOCAL 5 ML VIAL ONE (16:46)
[2023-02-12] MEDS ORDERED: PROPOFOL IV EMULSION 10 MG/ML 20 ML VIAL IV ONE ×2 (16:46→19:00)
[2023-02-12] MEDS ORDERED: fentaNYL citrate PF 100 MCG/2 ML VIAL ONE (16:47)
--- NOTE | 2023-02-12 16:59 | History & Physical Report ---
Date of Service February 12, 2023 Assessment & Plan (1) Diverticulitis of intestine with perforation: Plan: This is a 47yM who presents to the [facility] ED on 02/12/23 with complaints of abdominal pain and constipation starting yesterday. He presented to the ER due to ongoing symptoms. He initially underwent a KUB which revealed small stool burden and he was given a milk of molasses enema with a small BM. During that time his WBC returned elevated at [address] scan which showed acute sigmoid diverticulitis with pneumoperitoneum compatible with perforation. No abscess. WBC 13. Patient is tachycardic to the 120s. On exam his abdomen is distended and tender throughout, worse in the mid and left lower regions. Exam concerning for peritonitis. Discussed options with patient and believe it is in his best interest to undergo surgical intervention for further evaluation. Will book for diagnostic laparoscopy and abdominal washout possible ex lap/hartmans if necessary. Dr. Taylor has obtained consent. NPO/IVF/IV abx/IV pain meds ordered. as above. +free air. +peritonitis on exam. will proceed urgently with dx laparoscopy, possible washout/drain vs Sanchez's procedure. discussed risks/options including bleeding/infection/blood clots/injury to other organs such as bowel/bladder/ureter/, dvt/pe/mi/cva etc... questions answered. pt agreeable. History of Present Illness Primary Care Provider: Sorin Santo MD This is a 47yM who presents to the [facility] ED on 02/12/23 with complaints of abdominal pain and constipation. He states his symptoms started yesterday. His last BM was 5 days ago. Pain upwards of an 8/10 throughout the abdomen. He presented to the ER due to ongoing pain and constipation. He initially underwent a KUB which revealed small stool burden and he was given a milk of molasses enema. During that time his WBC returned elevated at [address] scan which showed acute sigmoid diverticulitis with pneumoperitoneum compatible with perforation. No abscess. He denies any fevers/chills, CP/SOB. He had a little bit of emesis in the ER room. No prior abdominal surgical history. Colonoscopy last year without major issues per patient. Last ate a bfast muffin yesterday morning. Allergies Allergy/AdvReac Type Severity Reaction Status Date / Time No Known Allergies Allergy Verified 10/20/22 19:42 Home Medications Medication Instructions Recorded Confirmed Type acetaminophen 500 mg tablet 1,000 mg PO Q6H PRN Pain 10/06/20 10/20/22 History (Tylenol Extra Strength) interferon beta-1a (albumin) 44 0.5 ml subcut 3XWK 10/07/20 10/20/22 History mcg/0.5 mL subcutaneous syringe (Rebif (with albumin)) tramadol 50 mg tablet 50 mg PO Q6H PRN pain, moderate 08/11/22 10/20/22 Rx #30 tabs amlodipine 5 mg tablet 5 mg PO DAILY 10/20/22 10/20/22 History baclofen 10 mg tablet 10 mg PO UD 10/20/22 10/20/22 History hydrochlorothiazide 25 mg tablet 25 mg PO DAILY 10/20/22 10/20/22 History ondansetron HCl 4 mg tablet 4 mg PO TID 10/20/22 10/20/22 History Past Med/Surg History Medical History Diverticular disease pt denies h/o diverticulitis Finger fracture, left ring finger. 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 03/31/19 and 04/21/19: LMA#5. History of lumbar surgery L5-S1 decompression fusion 12/17/21: Grade 2 view, MAC 3, ETT 7.5. History of tooth extraction Hx of vasectomy Family History Father Family history of diabetes mellitus Other Family history of breast cancer in mother Social History Smoking Status: Never smoker Second Hand Exposure: No; Hx Alcohol Use: No Hx Substance Use: No Preferred Language: Polish Communication Ability: Effective Set Up Mechanic Required: No Beliefs That Will Affect Care: None marital status: Current Living Situation: Spouse and Family current occupational status: employed How many Children do You have: 3 Feels Safe at Home: Yes Assistive Devices: None Review of Systems Constitutional: no fever and no chills Respiratory: no dyspnea Cardiovascular: no chest pain Gastrointestinal: + abdominal pain, + bloating, + nausea, + vomiting and + constipation Physical Exam Constitutional: awake/alert, in mild distress due to pain Respiratory: normal respiratory effort Cardiovascular: Rate/Rhythm: + tachycardic Gastrointestinal (Abdomen): Inspection/Auscultation: + abdomen distended Percussion/Palpation: + abdomen tender (generalized tenderness throughout the abdomen) abdomen firm Results & Data Results & Data Vital Signs (Past 12 Hours) Vital Signs Temp Pulse Pulse Resp BP BP Pulse Ox 02/12/23 16:46 115 H 23 96 02/12/23 16:46 156/110 H 02/12/23 16:40 117 H 27 H 02/12/23 16:30 119 H 28 H 02/12/23 16:20 120 H 23 95 02/12/23 16:10 94 02/12/23 15:45 125 H 34 H 96 02/12/23 15:44 122 H 20 119/91 97 02/12/23 11:38 78 95 02/12/23 10:54 105 H 18 119/91 99 02/12/23 10:38 36.6 C 114 H 20 138/83 94 O2 Del Method 02/12/23 16:46 02/12/23 16:46 02/12/23 16:40 02/12/23 16:30 02/12/23 16:20 02/12/23 16:10 02/12/23 15:45 02/12/23 15:44 Room Air 02/12/23 11:38 Room Air 02/12/23 10:54 Room Air 02/12/23 10:38 Room Air Diagnostic Findings ABDOMEN AND PELVIS CT WITH IV CONTRAST CT DOSE: 788.79 mGy.cm HISTORY: Acute generalized abdominal pain with constipation diffuse abdominal pain, constipation TECHNIQUE: Multiaxial CT images of the abdomen and pelvis were performed following the IV administration of 90 cc of Optiray, A dose lowering technique was utilized adhering to the principles of ALARA. COMPARISON STUDY: KUB of same day CT abdomen and pelvis 10/10/2020, CT lumbar spine 01/21/2023. FINDINGS: Cardiomegaly. Subsegmental bibasilar atelectasis with a few scattered calcified pulmonary granulomata. Pneumoperitoneum is most pronounced in the upper abdomen. Unremarkable spleen, pancreas and adrenal glands. The gallbladder is within normal limits. Hepatomegaly with hepatic steatosis. No evidence of cirrhosis. Patency of the hepatic and portal veins. 2.6 cm cyst of the superior pole right kidney. 3 mm nonobstructing calculus of the inferior pole left kidney. No ureteral calculi or hydronephrosis. Urinary bladder wall thickening with partial distention. Prostamegaly. Small fat filled left inguinal hernia. No abdominal aortic aneurysm or lymphadenopathy. Tiny hiatal hernia. Acute sigmoid diverticulitis with inflammatory stranding trace fluid within the sigmoid mesocolon. No drainable abscess. Scattered colonic air-fluid levels with mild gaseous distention in moderate fecal retention. Several loops of ileum demonstrating circumferential wall thickening within the lower abdomen and pelvis. Normal appendix. No acute fracture. Posterior interbody randy and screw fusion hardware with discectomy at L4-S1. There is evidence of loosening involving the bilateral S1 screws. IMPRESSION: 1. Acute sigmoid diverticulitis with pneumoperitoneum compatible with perforation. No abscess. 2. Several loops of ileum demonstrating circumferential wall thickening within the lower abdomen and pelvis, likely reactive. 3. Posterior interbody randy and screw fusion with discectomy at L4-S1 with evidence of hardware loosening. 4. Normal appendix. 5. Left nephrolithiasis. ACT 112: Negative or not required by law. The above report was generated using voice recognition software. It may contain grammatical, syntax or spelling error Electronically signed by: Aneesh Lacy M.D. 02/12/2023 3:15 PM PG Care Time/CCT Total # of Minutes Spent Total Time Spent with Patient: Total time spent is greater than 50% in coordination of care (as documented) at patient's floor/unit and/or counseling patient: Coding Level of Care Code 71507 INT INP/OBS CARE 255MIN Diagnoses Diverticulitis of intestine with perforation K57.80
[2023-02-12] MEDS ORDERED: HYDROmorphone INJ 2 MG/ML SYR/VIAL ONE (18:11)
[2023-02-12] MEDS ORDERED: DEXAMETHASONE SOD INJ 4 MG/ML VIAL ONE (18:33)
[2023-02-12] MEDS ORDERED: METOPROLOL TARTRATE 1 MG/ML VIAL IV ONE (18:33)
[2023-02-12] MEDS ORDERED: PHENYLEPHRINE 100MCG/ML 5ML SYR ONE (18:33)
[2023-02-12] MEDS ORDERED: SUGAMMADEX SODIUM 200 MG/2 ML VIAL IV ONE (19:14)
--- NOTE | 2023-02-12 19:58 | Post Operative Brief Note ---
PG Immediate Post Op with CF Date of Surgery February 12, 2023 Pre & Post Diagnosis Operation Date: 02/12/23 11:40 Pre-Op Diagnosis: perferated viscous Post-Op Diagnosis: perferated diverticulitis I identified the patient and participated in the time-out.: Yes Procedure Operation Date: 02/12/23 11:40 Actual Procedures p Laparascopic converted open Exploratory Laparotomy, sigmoid colectomy with end colostomy(Not Applicable) - Kushal Tyalor DO Surgeon Kushal Taylor DO Home Specialist Dr. Bee MD Estimated Blood Loss 50 Findings Consistent with Post-Op Diagnosis Specimens Specimen Description: Permanent a) Sigmoid colon Drains Brian Drain, Childers Catheter, Asim-Palma Drain and [place] Drain
--- NOTE | 2023-02-12 20:40 | Operative Report ---
PG Post Operative Report Pre & Post Diagnosis Operation Date: 02/12/23 11:40 Pre-Op Diagnosis: perferated viscous Post-Op Diagnosis: perferated diverticulitis I identified the patient and participated in the time-out.: Yes Procedure Operation Date: 02/12/23 11:40 Actual Procedures p Laparascopic converted open Exploratory Laparotomy, Bowel Resection and colo stomy(Not Applicable) - Kushal Taylor DO Surgeon Kushal Taylor DO Manager Assessment Dr. Bee MD Estimated Blood Loss 50 Findings Consistent with Post-Op Diagnosis Specimens sigmoid colon Description of Procedure After informed consent was obtained the patient was taken to the operating room and placed in supine position. After successful intubation a Childers catheter and nasogastric tube were placed. The abdomen was shaved and sterilely prepped and draped in usual fashion. I began with a supraumbilical incision with 11 blade scalpel. This was carried down through the soft tissue using cautery. Anterior fascia was opened using cautery and two #0 Vicryl stay sutures were placed. Peritoneum was entered using a blunt finger penetration and a finger sweep was performed. A 12 mm Reed trocar was placed and the abdomen was insufflated to 18 mmHg. Laparoscope was inserted and the abdomen examined 360 degrees. We immediately noted a fair amount of purulent fluid in the lower half of the abdomen with some exudate on the small bowel as well as inflamed small and large bowel. I did place a right upper quadrant 5 mm trocar and used a suction irr igator device to try and better delineate the anatomy. There was clear severe inflammation of the sigmoid colon with what appeared to be a perforation. Clearly this would need to be resected it would not be amenable to laparoscopic surgery. There was a lot of exudate and a lot of thickened bowel with fat wrapping. I therefore removed the trocars and desufflated the abdomen. I made a midline incision from above the umbilicus down around to the pubic symphysis using a 10 blade scalpel. We open the incision to both poles using cautery. Once in the abdomen I used finger fractionation to break up the small bowel as well as to mobilize the colon. I mobilized the sigmoid and left colon along the white line of [place]old[place] from around the splenic flexure down and over the pelvic brim. There was about an 8 cm segment that was severely inflamed with what appeared to be a central perforation with fat wrapping. Proximal and distal this was relatively normal colon other than some secondary inflammation. I was able to create a window in the mesentery distal to the inflamed area and divided it using a PARUL black cartridge stapler. In similar fashion I picked a spot proximal to the infected colon and also transected that using a PARUL black stapler. I then used a LigaSure device to take down the mesentery and passed off the specimen. I will add that I did use a Bookwalter retractor throughout the case to help with exposure. Once the infected specimen was out we continued to mobilize the left colon. There was no evidence of any other abnormalities on the left side of the bowel. We thoroughly irrigated the entire abdomen with about 4 to 5 L of warm irrigation. I used 0 Prolene and placed sutures on the corners of the staple line of the rectal stump for future identification. Next I made a circular opening in the left mid abdomen with a fresh scalpel. This was carried down to fascia using cautery. A cruciate incision was made and the fascia was spread. I was able to deliver the end of the left colon out through this and we would mature at the end of the case. Again no other abnormalities were seen. We closed the fascia using #1 looped PDS starting either pole and running them and securing together in the midline. Soft tissue was thoroughly irrigated and skin was closed over quarter inch [place] using skin ruy. Prior to closure of the fascia we placed a 19 [place] Brian drain into the pelvis out through a separate stab incision and it was secured to the skin using 2-0 nylon. After closing the incisions with ruy a silver dressing was applied. I then matured the stoma using 3-0 Monocryl in Jazmin fashion. An appliance was placed. The patient was awakened extubated and transferred to recovery in guarded condition. Dr. Cee Merida MD was present for the entire case and was instrumental in assisting through all aspects of the case from start to finish. I attest to the content of the Intraoperative Record and any orders documented therein. Any exceptions are noted below.
--- NOTE | 2023-02-12 20:52 | Anesthesiology Progress Note ---
Date of Service February 12, 2023 Anesthesia Post Procedure Vital Signs Vital Signs: Temp Pulse Pulse Pulse Resp BP BP 02/12/23 20:50 108 H 14 154/93 H 02/12/23 20:40 37.5 C 111 H 16 152/99 H 02/12/23 20:30 106 H 15 124/102 H 02/12/23 20:20 109 H 18 151/101 H 02/12/23 20:10 111 H 15 152/107 H 02/12/23 20:00 36.3 C L 112 H 12 175/106 H 02/12/23 16:50 37.4 C 120 H 25 H 02/12/23 16:46 115 H 23 02/12/23 16:46 156/110 H 02/12/23 16:40 117 H 27 H 02/12/23 16:30 119 H 28 H 02/12/23 16:20 120 H 23 02/12/23 16:10 02/12/23 15:45 125 H 34 H 02/12/23 15:44 122 H 20 119/91 02/12/23 11:38 78 02/12/23 10:54 105 H 18 02/12/23 10:38 36.6 C 114 H 20 138/83 BP Pulse Ox O2 Del Method O2 Flow Rate 02/12/23 20:50 94 Oxymask 2 02/12/23 20:40 95 Oxymask 2 02/12/23 20:30 95 Oxymask 4 02/12/23 20:20 96 Oxymask 4 02/12/23 20:10 97 Oxymask 6 02/12/23 20:00 98 Oxymask 8 02/12/23 16:50 169/120 H 94 Room Air 02/12/23 16:46 96 02/12/23 16:46 02/12/23 16:40 02/12/23 16:30 02/12/23 16:20 95 02/12/23 16:10 94 02/12/23 15:45 96 02/12/23 15:44 97 Room Air 02/12/23 11:38 95 Room Air 02/12/23 10:54 119/91 99 Room Air 02/12/23 10:38 94 Room Air Pain Intensity Abdomen: Pain Intensity: 7 Transfer of Care Handoff Completed per policy Notes Mental Status: alert / awake / arousable and participated in evaluation Patient Amnestic to Procedure: Yes Nausea / Vomiting: adequately controlled Pain: adequately controlled Airway Patency, RR, SpO2: stable & adequate BP & HR: stable & adequate Hydration State: stable & adequate Anesthetic Complications: no major complications apparent and Pt Satisfied with anesthetic care
[2023-02-12] MEDS: SODIUM CHLORIDE 0.9% 1000ML 1,000 ML IV SCH (21:38)
[2023-02-12] MEDS: PIPERACILLIN/TAZOBACTAM 3.375 GM in DEXTROSE 5% 100 ML IV SCH (22:20)
[2023-02-13] MEDS: HYDROmorphone INJ 1 MG/ML SYRINGE IV PRN ×7 (02:15→22:29)
[2023-02-13] MEDS: SODIUM CHLORIDE 0.9% 1000ML 1,000 ML IV SCH ×3 (05:38→21:09)
[2023-02-13] MEDS: PIPERACILLIN/TAZOBACTAM 3.375 GM in DEXTROSE 5% 100 ML IV SCH ×3 (05:40→21:55)
[2023-02-13 06:29] LABS: Basophils # (auto) 0.02 K/uL (0-0.2); Basophils % (auto) 0.1 %; Hematocrit (blood only) 36.5 % (42.0-52.0); Hemoglobin 12.3 g/dl (14.0-18.0); Immature Granulocytes # (auto) 0.07 K/uL (0.01-0.20); Immature Granulocytes % (auto) 0.4 %; Lymphocytes # (auto) 0.85 K/uL (1.2-3.4); Lymphocytes % (auto) 5.2 %; Mean Corpuscular Hemoglobin 30.8 pg (25.0-34.0); Mean Corpuscular Hgb Conc 33.7 g/dL (32.0-36.0); Mean Corpuscular Volume 91.3 fL (80.0-100.0); Mean Platelet Volume 10.7 fL (9.4-12.4); Monocytes # (auto) 0.77 K/uL (0.11-0.59); Monocytes % (auto) 4.7 %; Neutrophils # (auto) 14.56 K/uL (1.40-6.50); Neutrophils % (auto) 89.6 %; Platelet Count 280 K/uL (130-400); RDW Coefficient of Variation 13.6 % (11.5-14.5); RDW Standard Deviation 46.3 fL (36.4-46.3); White Blood Count 16.27 K/ul (4.8-10.8)
[2023-02-13 06:42] LABS: Albumin Globulin Ratio 1.1 (0.9-2); Albumin Level 3.5 gm/dl (3.4-5.0); BUN Creatinine Ratio 16.4 (10-20); Bilirubin,Total 0.7 mg/dl (0.2-1.0); Calcium 8.7 mg/dl (8.6-10.3); Est GFR (African American) 133.6 ml/min; Est GFR (Non-African American) 115.2 ml/min; Globulin 3.3 gm/dl (2.5-4.0); Potassium 4.2 mmol/L (3.5-5.1); Total Protein 6.8 gm/dl (6.0-8.3)
--- NOTE | 2023-02-13 11:47 | Surgery Progress Note ---
Date of Service February 13, 2023 Assessment & Plan (1) Diverticulitis of intestine with perforation: Plan: Postoperative day #1 Doing as expected We will keep NG tube until better bowel function We will add Lovenox daily Continue supportive care Admission and Anticipated Discharge Date Admission Date: February 12, 2023 Subjective Patient seen. Having surgical pain however admittedly is better than yesterday. Physical Exam Physical Exam: Alert and oriented no acute distress Expected surgical pain Abdomen is soft. Dressing is clean and dry. Stoma viable with no function yet EBEN drain serosanguineous Results & Data Vital Signs (Past 12 Hours) Vital Signs Temp Pulse Resp BP Pulse Ox O2 Del Method 02/13/23 08:00 37.0 C 94 H 17 147/96 H 95 Room Air 02/13/23 03:52 37.4 C 104 H 16 132/94 96 Nasal Cannula 02/13/23 00:48 37.0 C 104 H 16 145/96 H 96 Oxymask PG Care Time/CCT Total # of Minutes Spent Total Time Spent with Patient: Total time spent is greater than 50% in coordination of care (as documented) at patient's floor/unit and/or counseling patient: Coding Level of Care Code 03604 Post Operative Follow-Up Diagnoses Diverticulitis of intestine with perforation K57.80
[2023-02-13] MEDS: LORazepam 2 MG/1 ML VIAL IV PRN (21:04)
[2023-02-14] MEDS: HYDROmorphone INJ 1 MG/ML SYRINGE IV PRN ×8 (01:35→22:18)
[2023-02-14] MEDS: SODIUM CHLORIDE 0.9% 1000ML 1,000 ML IV SCH ×3 (05:38→23:17)
[2023-02-14] MEDS: PIPERACILLIN/TAZOBACTAM 3.375 GM in DEXTROSE 5% 100 ML IV SCH ×3 (05:49→22:15)
[2023-02-14 06:10] LABS: Basophils # (auto) 0.03 K/uL (0-0.2); Basophils % (auto) 0.2 %; Eosinophils % (auto) 0.8 %; Hematocrit (blood only) 35.9 % (42.0-52.0); Hemoglobin 11.9 g/dl (14.0-18.0); Immature Granulocytes # (auto) 0.05 K/uL (0.01-0.20); Immature Granulocytes % (auto) 0.4 %; Lymphocytes # (auto) 1.01 K/uL (1.2-3.4); Lymphocytes % (auto) 7.6 %; Mean Corpuscular Hemoglobin 30.7 pg (25.0-34.0); Mean Corpuscular Hgb Conc 33.1 g/dL (32.0-36.0); Mean Corpuscular Volume 92.5 fL (80.0-100.0); Monocytes # (auto) 1.16 K/uL (0.11-0.59); Monocytes % (auto) 8.8 %; Neutrophils # (auto) 10.87 K/uL (1.40-6.50); Neutrophils % (auto) 82.2 %; Platelet Count 290 K/uL (130-400); RDW Standard Deviation 47.1 fL (36.4-46.3); Red Blood Count 3.88 M/uL (4.70-6.10); White Blood Count 13.22 K/ul (4.8-10.8)
[2023-02-14 06:26] LABS: Albumin Level 3.3 gm/dl (3.4-5.0); Bilirubin,Total 0.5 mg/dl (0.2-1.0); Calcium 8.3 mg/dl (8.6-10.3); Creatinine Clr Calc Pharmacy 157.3 ml/min; Est GFR (African American) 127.5 ml/min; Globulin 3.2 gm/dl (2.5-4.0); Potassium 3.6 mmol/L (3.5-5.1); Total Protein 6.5 gm/dl (6.0-8.3)
[2023-02-14] MEDS: ENOXAPARIN INJ 40 MG/0.4 ML SYR SQ SCH (07:36)
[2023-02-14] MEDS ORDERED: SODIUM CHLORIDE 0.9% 1000ML 1,000 ML IV ONE ×2 (09:14→14:40)
--- NOTE | 2023-02-14 09:22 | Surgery Progress Note ---
Date of Service February 14, 2023 Assessment & Plan (1) Diverticulitis of intestine with perforation: Plan: Doing as anticipated. Labs slowly improving. We will add IV acetaminophen for discomfort. I am also going to give him a fluid bolus. Keep Childers catheter as he is having difficulty ambulating. I do want him out of bed once or twice today. I would keep his NG tube until his colostomy has better output. Admission and Anticipated Discharge Date Admission Date: February 12, 2023 Subjective Patient seen. Had a fair amount of pain when laying back in bed this morning. Much improved after pain medicine. Otherwise no new complaints. Physical Exam Physical Exam: Alert. Mildly uncomfortable. Midline incision looks great. EBEN drain with serosanguineous output Stoma viable but minimal output at this point Still has abdominal distention Results & Data Vital Signs (Past 12 Hours) Vital Signs Temp Pulse Resp BP Pulse Ox O2 Del Method O2 Flow Rate 02/14/23 07:24 98 H 95 Nasal Cannula 2 02/14/23 07:09 36.4 C L 115 H 18 144/87 H 94 Room Air 02/14/23 01:45 37.0 C 02/14/23 00:03 95 H 94 Nasal Cannula 2 02/13/23 21:35 37.1 C 100 H 18 129/84 93 Room Air PG Care Time/CCT Total # of Minutes Spent Total Time Spent with Patient: Total time spent is greater than 50% in coordination of care (as documented) at patient's floor/unit and/or counseling patient: Coding Level of Care Code 33060 Post Operative Follow-Up Diagnoses Diverticulitis of intestine with perforation K57.80
[2023-02-14] MEDS: ACETAMINOPHEN 1,000 MG/100 ML VIAL IV SCH ×2 (09:42→17:22)
[2023-02-14] MEDS ORDERED: LORazepam 2 MG/1 ML VIAL IV STA (18:13)
[2023-02-14] MEDS: LORazepam 2 MG/1 ML VIAL IV PRN (20:34)
[2023-02-15] MEDS ORDERED: LORazepam 2 MG/1 ML VIAL IV ONE (00:43)
[2023-02-15] MEDS: SODIUM CHLORIDE 0.9% 1000ML 1,000 ML IV SCH ×4 (00:50→22:08)
[2023-02-15] MEDS: ACETAMINOPHEN 1,000 MG/100 ML VIAL IV SCH ×3 (00:51→16:44)
[2023-02-15] MEDS: HYDROmorphone INJ 1 MG/ML SYRINGE IV PRN ×7 (01:28→20:26)
[2023-02-15] MEDS: PIPERACILLIN/TAZOBACTAM 3.375 GM in DEXTROSE 5% 100 ML IV SCH ×3 (05:39→22:08)
[2023-02-15 06:24] LABS: Basophils # (auto) 0.04 K/uL (0-0.2); Basophils % (auto) 0.4 %; Eosinophils # (auto) 0.36 K/uL (0-0.50); Eosinophils % (auto) 3.6 %; Hematocrit (blood only) 34.1 % (42.0-52.0); Hemoglobin 11.4 g/dl (14.0-18.0); Immature Granulocytes # (auto) 0.04 K/uL (0.01-0.20); Immature Granulocytes % (auto) 0.4 %; Lymphocytes # (auto) 1.43 K/uL (1.2-3.4); Lymphocytes % (auto) 14.2 %; Mean Corpuscular Hemoglobin 30.7 pg (25.0-34.0); Mean Corpuscular Hgb Conc 33.4 g/dL (32.0-36.0); Mean Corpuscular Volume 91.9 fL (80.0-100.0); Mean Platelet Volume 10.9 fL (9.4-12.4); Monocytes # (auto) 1.03 K/uL (0.11-0.59); Monocytes % (auto) 10.2 %; Neutrophils # (auto) 7.16 K/uL (1.40-6.50); Neutrophils % (auto) 71.2 %; Platelet Count 276 K/uL (130-400); RDW Coefficient of Variation 13.4 % (11.5-14.5); RDW Standard Deviation 45.6 fL (36.4-46.3); Red Blood Count 3.71 M/uL (4.70-6.10); White Blood Count 10.06 K/ul (4.8-10.8)
[2023-02-15 06:38] LABS: Albumin Level 2.9 gm/dl (3.4-5.0); BUN Creatinine Ratio 16.9 (10-20); Bilirubin,Total 0.5 mg/dl (0.2-1.0); Calcium 8.2 mg/dl (8.6-10.3); Creatinine Clr Calc Pharmacy 199.9 ml/min; Est GFR (African American) 140.7 ml/min; Est GFR (Non-African American) 121.4 ml/min; Potassium 3.6 mmol/L (3.5-5.1); Total Protein 5.9 gm/dl (6.0-8.3)
[2023-02-15] MEDS: ENOXAPARIN INJ 40 MG/0.4 ML SYR SQ SCH (07:54)
[2023-02-15] MEDS ORDERED: SODIUM CHLORIDE 0.9% 1000ML 1,000 ML IV ONE (09:41)
--- NOTE | 2023-02-15 09:52 | Surgery Progress Note ---
Date of Service February 15, 2023 Assessment & Plan (1) Diverticulitis of intestine with perforation: Plan: Postoperative day #3 from Sanchez's procedure Awaiting return of bowel function Keep NG tube until better bowel function We will DC his Childers We will give another 1000 cc fluid bolus Increase activity Admission and Anticipated Discharge Date Admission Date: February 12, 2023 Subjective Patient seen. Doing reasonably well with no new complaints. He is having trouble sleeping. Also feels dry. Physical Exam Physical Exam: Alert. No acute distress Abdomen is is soft. Incision looks good. EBEN with serous output. Stoma viable but minimal output at this point Results & Data Vital Signs (Past 12 Hours) Vital Signs Temp Pulse Pulse Resp BP BP Pulse Ox 02/15/23 08:29 37.2 C 98 H 18 140/88 94 02/14/23 22:25 36.8 C 88 16 127/88 95 O2 Del Method 02/15/23 08:29 Room Air 02/14/23 22:25 Room Air PG Care Time/CCT Total # of Minutes Spent Total Time Spent with Patient: Total time spent is greater than 50% in coordination of care (as documented) at patient's floor/unit and/or counseling patient: Coding Level of Care Code 24036 Post Operative Follow-Up Diagnoses Diverticulitis of intestine with perforation K57.80
[2023-02-15] MEDS: LORazepam 2 MG/1 ML VIAL IV PRN (22:09)
[2023-02-16] MEDS: HYDROmorphone INJ 1 MG/ML SYRINGE IV PRN ×6 (00:08→22:09)
[2023-02-16] MEDS: ACETAMINOPHEN 1,000 MG/100 ML VIAL IV SCH ×3 (02:10→18:01)
[2023-02-16] MEDS: HYDROmorphone INJ 0.5 MG/0.5 ML SYR IV PRN ×2 (02:15→12:40)
[2023-02-16] MEDS ORDERED: LORazepam 2 MG/1 ML VIAL IV STA (02:39)
[2023-02-16] MEDS: PIPERACILLIN/TAZOBACTAM 3.375 GM in DEXTROSE 5% 100 ML IV SCH ×3 (05:44→22:08)
[2023-02-16] MEDS: SODIUM CHLORIDE 0.9% 1000ML 1,000 ML IV SCH ×3 (05:44→22:07)
[2023-02-16 06:24] LABS: Basophils # (auto) 0.03 K/uL (0-0.2); Basophils % (auto) 0.3 %; Eosinophils # (auto) 0.22 K/uL (0-0.50); Eosinophils % (auto) 2.3 %; Hematocrit (blood only) 33.3 % (42.0-52.0); Immature Granulocytes # (auto) 0.06 K/uL (0.01-0.20); Immature Granulocytes % (auto) 0.6 %; Lymphocytes # (auto) 1.34 K/uL (1.2-3.4); Lymphocytes % (auto) 14.3 %; Mean Corpuscular Hemoglobin 30.2 pg (25.0-34.0); Mean Corpuscular Volume 91.5 fL (80.0-100.0); Mean Platelet Volume 10.8 fL (9.4-12.4); Monocytes # (auto) 1.09 K/uL (0.11-0.59); Monocytes % (auto) 11.6 %; Neutrophils # (auto) 6.63 K/uL (1.40-6.50); Neutrophils % (auto) 70.9 %; Platelet Count 289 K/uL (130-400); RDW Coefficient of Variation 13.2 % (11.5-14.5); RDW Standard Deviation 44.8 fL (36.4-46.3); Red Blood Count 3.64 M/uL (4.70-6.10); White Blood Count 9.37 K/ul (4.8-10.8)
[2023-02-16 06:50] LABS: BUN Creatinine Ratio 13.2 (10-20); Calcium 8.3 mg/dl (8.6-10.3); Creatinine Clr Calc Pharmacy 222.5 ml/min; Est GFR (African American) 147.1 ml/min; Est GFR (Non-African American) 126.9 ml/min; Potassium 3.4 mmol/L (3.5-5.1)
--- NOTE | 2023-02-16 08:35 | Surgery Progress Note ---
Date of Service February 16, 2023 Assessment & Plan (1) Diverticulitis of intestine with perforation: Plan: Doing as expected. White blood cell count normal he is afebrile. Awaiting full return of bowel function before removing NG tube Continue to ambulate and limit narcotics Admission and Anticipated Discharge Date Admission Date: February 12, 2023 Subjective Patient seen. Doing okay. Pain is improving. Abdominal distention decreased. Physical Exam Physical Exam: Alert. No acute distress His incision looks great EBEN drain with serous output Stoma viable but still with minimal output Results & Data Vital Signs (Past 12 Hours) Vital Signs Temp Pulse Resp BP Pulse Ox Pulse Ox O2 Del Method 02/16/23 08:01 Room Air 02/16/23 07:43 36.7 C 96 H 16 134/87 94 Room Air 02/15/23 22:00 97 02/15/23 22:00 Room Air 02/15/23 22:08 37.6 C H 94 H 18 151/90 H 97 Room Air O2 Del Method 02/16/23 08:01 02/16/23 07:43 02/15/23 22:00 Room Air 02/15/23 22:00 02/15/23 22:08 PG Care Time/CCT Total # of Minutes Spent Total Time Spent with Patient: Total time spent is greater than 50% in coordination of care (as documented) at patient's floor/unit and/or counseling patient: Coding Level of Care Code 76544 Post Operative Follow-Up Diagnoses Diverticulitis of intestine with perforation K57.80
[2023-02-16] MEDS: ENOXAPARIN INJ 40 MG/0.4 ML SYR SQ SCH (09:03)
[2023-02-16] MEDS: POTASSIUM CHLORIDE / WTR 10 MEQ/100 ML PLCT IV SCH ×4 (12:40→15:44)
[2023-02-16] MEDS: LORazepam 2 MG/1 ML VIAL IV PRN (22:08)
[2023-02-17] MEDS: ACETAMINOPHEN 1,000 MG/100 ML VIAL IV SCH (02:26)
[2023-02-17] MEDS: HYDROmorphone INJ 0.5 MG/0.5 ML SYR IV PRN (03:07)
[2023-02-17] MEDS: PIPERACILLIN/TAZOBACTAM 3.375 GM in DEXTROSE 5% 100 ML IV SCH ×3 (06:09→22:04)
[2023-02-17] MEDS: SODIUM CHLORIDE 0.9% 1000ML 1,000 ML IV SCH ×3 (06:11→22:03)
--- NOTE | 2023-02-17 08:28 | Surgery Progress Note ---
Date of Service February 17, 2023 Assessment & Plan (1) Diverticulitis of intestine with perforation: Plan: Still awaiting return of bowel function We will check KUB Patient may have ice chips and hard candy to help stimulate the GI tract Encourage ambulation and limit narcotic use Admission and Anticipated Discharge Date Admission Date: February 12, 2023 Subjective Patient seen. No new complaints. Still not much function out of his ostomy. Physical Exam Physical Exam: Alert. No acute distress Abdomen is soft. EBEN drain serous Stoma viable but no real output yet Incision looks good Results & Data Vital Signs (Past 12 Hours) Vital Signs Temp Pulse Resp BP Pulse Ox O2 Del Method 02/17/23 07:47 36.5 C 92 H 16 153/84 H 95 Room Air 02/16/23 22:12 36.9 C 87 18 143/99 H 95 Room Air PG Care Time/CCT Total # of Minutes Spent Total Time Spent with Patient: Total time spent is greater than 50% in coordination of care (as documented) at patient's floor/unit and/or counseling patient: Coding Level of Care Code 41575 Post Operative Follow-Up Diagnoses Diverticulitis of intestine with perforation K57.80
[2023-02-17] MEDS: ENOXAPARIN INJ 40 MG/0.4 ML SYR SQ SCH (09:45)
[2023-02-17] MEDS: HYDROmorphone INJ 1 MG/ML SYRINGE IV PRN ×4 (09:46→22:05)
--- NOTE | 2023-02-17 11:05 | XRay Report ---
KUB CLINICAL HISTORY: poss post op ileus COMPARISON STUDY: KUB and CT of the abdomen and pelvis February 12, 2023. FINDINGS: A colostomy, surgical drain and skin ruy are present. There are postoperative findings within the spine. Multiple loops of moderately dilated small bowel measure up to 6.6 cm in caliber. T ip of nasogastric tube is within the gastric fundus. Scattered colonic and rectal gas is present. IMPRESSION: Postoperative findings, as above. Multiple loops of moderately dilated small bowel with scattered colonic and rectal gas. Given recent surgery, a postoperative ileus is favored however a phyllis wel obstruction could appear similar. ACT 112: Negative or not required by law. Electronically signed by: Tyler Romero M.D. 02/17/2023 11:03 AM
[2023-02-17] MEDS: ACETAMINOPHEN 1,000 MG/100 ML VIAL IV PRN (12:56)
[2023-02-17] MEDS: LORazepam 2 MG/1 ML VIAL IV PRN (22:04)
[2023-02-18] MEDS: SODIUM CHLORIDE 0.9% 1000ML 1,000 ML IV SCH (05:46)
[2023-02-18] MEDS: ACETAMINOPHEN 1,000 MG/100 ML VIAL IV PRN ×2 (05:46→13:17)
[2023-02-18] MEDS: PIPERACILLIN/TAZOBACTAM 3.375 GM in DEXTROSE 5% 100 ML IV SCH ×3 (06:21→21:57)
[2023-02-18 08:15] LABS: Basophils # (auto) 0.05 K/uL (0-0.2); Basophils % (auto) 0.6 %; Eosinophils # (auto) 0.16 K/uL (0-0.50); Eosinophils % (auto) 1.8 %; Hematocrit (blood only) 35.3 % (42.0-52.0); Hemoglobin 11.7 g/dl (14.0-18.0); Immature Granulocytes # (auto) 0.07 K/uL (0.01-0.20); Immature Granulocytes % (auto) 0.8 %; Lymphocytes # (auto) 0.91 K/uL (1.2-3.4); Lymphocytes % (auto) 10.1 %; Mean Corpuscular Hemoglobin 30.2 pg (25.0-34.0); Mean Corpuscular Hgb Conc 33.1 g/dL (32.0-36.0); Mean Platelet Volume 10.9 fL (9.4-12.4); Monocytes # (auto) 0.84 K/uL (0.11-0.59); Monocytes % (auto) 9.4 %; Neutrophils # (auto) 6.94 K/uL (1.40-6.50); Neutrophils % (auto) 77.3 %; Platelet Count 357 K/uL (130-400); RDW Coefficient of Variation 13.2 % (11.5-14.5); Red Blood Count 3.88 M/uL (4.70-6.10); White Blood Count 8.97 K/ul (4.8-10.8)
[2023-02-18] MEDS: ENOXAPARIN INJ 40 MG/0.4 ML SYR SQ SCH (08:18)
[2023-02-18] MEDS: HYDROmorphone INJ 1 MG/ML SYRINGE IV PRN (08:18)
--- NOTE | 2023-02-18 08:26 | Surgery Progress Note ---
Date of Service February 18, 2023 Assessment & Plan (1) History of bowel resection: Plan: Doing as expected. Ileus on x-ray which is expected as he presented with this. Awaiting return of bowel function. Keep NG tube. Try to limit narcotics and increase ambulation. We also encouraged him to chew some gum. If he does not progress in the next couple of days we may need to consider TPN. (2) Sepsis: Admission and Anticipated Discharge Date Admission Date: February 12, 2023 Subjective Patient seen. No changes. Still minimal output in his stoma. His main issue is irritation from the NG tube as well as occasional incisional pain. Physical Exam Physical Exam: Alert and oriented no acute distress Abdomen soft with expected tenderness. EBEN drain with serous output Stoma still viable with minimal output Results & Data Vital Signs (Past 12 Hours) Vital Signs Temp Pulse Resp BP Pulse Ox O2 Del Method 02/18/23 07:35 36.5 C 92 H 18 139/100 97 Room Air 02/17/23 22:11 37.1 C 89 18 146/92 H 97 Room Air PG Care Time/CCT Total # of Minutes Spent Total Time Spent with Patient: Total time spent is greater than 50% in coordination of care (as documented) at patient's floor/unit and/or counseling patient: Coding Level of Care Code 71541 Post Operative Follow-Up Diagnoses History of bowel resection Z90.49 Sepsis A41.9
[2023-02-18 08:30] LABS: BUN Creatinine Ratio 9.6 (10-20); Calcium 8.5 mg/dl (8.6-10.3); Creatinine Clr Calc Pharmacy 226.8 ml/min; Est GFR (African American) 148.2 ml/min; Est GFR (Non-African American) 127.9 ml/min; Potassium 3.4 mmol/L (3.5-5.1)
[2023-02-18] MEDS: KETOROLAC 30 MG/ML VIAL IV SCH ×3 (09:41→20:37)
[2023-02-18] MEDS ORDERED: LORazepam 2 MG/1 ML VIAL IV PRN (10:00)
[2023-02-18] MEDS: POTASSIUM CHLORIDE / WTR 10 MEQ/100 ML PLCT IV SCH ×2 (11:16→12:10)
[2023-02-18] MEDS: D5W AND 1/2NSS + 20MEQ KCL 20 MEQ/1,000 ML BAG IV SCH ×2 (11:16→19:01)
[2023-02-18] MEDS: HYDROmorphone INJ 0.5 MG/0.5 ML SYR IV PRN ×2 (16:14→21:57)
[2023-02-18] MEDS: LORazepam 2 MG/1 ML VIAL IV PRN (21:57)
[2023-02-19] MEDS: KETOROLAC 30 MG/ML VIAL IV SCH ×4 (02:42→20:00)
[2023-02-19] MEDS: D5W AND 1/2NSS + 20MEQ KCL 20 MEQ/1,000 ML BAG IV SCH ×2 (02:42→10:34)
[2023-02-19] MEDS: PIPERACILLIN/TAZOBACTAM 3.375 GM in DEXTROSE 5% 100 ML IV SCH ×2 (06:19→14:12)
[2023-02-19] MEDS: HYDROmorphone INJ 0.5 MG/0.5 ML SYR IV PRN ×3 (06:19→15:37)
[2023-02-19 06:49] LABS: Basophils # (auto) 0.04 K/uL (0-0.2); Basophils % (auto) 0.6 %; Eosinophils # (auto) 0.19 K/uL (0-0.50); Eosinophils % (auto) 2.8 %; Hematocrit (blood only) 30.2 % (42.0-52.0); Hemoglobin 10.5 g/dl (14.0-18.0); Immature Granulocytes # (auto) 0.02 K/uL (0.01-0.20); Immature Granulocytes % (auto) 0.3 %; Lymphocytes % (auto) 14.9 %; Mean Corpuscular Hemoglobin 30.3 pg (25.0-34.0); Mean Corpuscular Hgb Conc 34.8 g/dL (32.0-36.0); Mean Platelet Volume 10.9 fL (9.4-12.4); Monocytes # (auto) 0.69 K/uL (0.11-0.59); Monocytes % (auto) 10.3 %; Neutrophils # (auto) 4.77 K/uL (1.40-6.50); Neutrophils % (auto) 71.1 %; Platelet Count 373 K/uL (130-400); Red Blood Count 3.47 M/uL (4.70-6.10); White Blood Count 6.71 K/ul (4.8-10.8)
[2023-02-19 07:14] LABS: Anion Gap 7 (3-11); BUN Creatinine Ratio 6.1 (10-20); Blood Urea Nitrogen 3 mg/dl (6-23); Calcium 8.2 mg/dl (8.6-10.3); Carbon Dioxide 26 mmol/L (21-32); Chloride 105 mmol/L (98-107); Creatinine Clr Calc Pharmacy 240.7 ml/min; Est GFR (African American) > 150.0 ml/min; Glucose 114 mg/dl (70-99(Fasting)); Potassium 3.2 mmol/L (3.5-5.1); Sodium 138 mmol/L (136-145)
[2023-02-19] MEDS: ENOXAPARIN INJ 40 MG/0.4 ML SYR SQ SCH (08:35)
[2023-02-19] MEDS: POTASSIUM CHLORIDE / WTR 10 MEQ/100 ML PLCT IV SCH ×4 (08:35→12:44)
[2023-02-19] MEDS ORDERED: TPN/PPN CONSULT PHARMACY PRN (09:27)
[2023-02-19] MEDS ORDERED: DEXTROSE 10% 1,000 ML IV PRN (09:29)
[2023-02-19] MEDS ORDERED: TPN/PPN CONSULT PHARMACY STA (09:29)
[2023-02-19 10:27] LABS: Magnesium 1.8 mg/dl (1.7-2.4); Phosphorus 2.6 mg/dl (2.5-4.9)
--- NOTE | 2023-02-19 10:44 | Surgery Progress Note ---
Date of Service February 19, 2023 Assessment & Plan (1) History of bowel resection: Plan: still awaiting bowel fx return will place PICC and start TPN ambulate did have some gas in bag yesterday and abdomen less distended so hopefully output soon [facility] covering for weekend. Admission and Anticipated Discharge Date Admission Date: February 12, 2023 Subjective pt seen. feels he is slowly getting better. did get some nausea yesterday when NGT clamped. Physical Exam Physical Exam: alert. nad. looks good Gastrointestinal (Abdomen): soft. less distenstion. incision looks good. EBEN with serous ouput only. stoma viable/pink. still minimal output Results & Data Vital Signs (Past 12 Hours) Vital Signs Temp Pulse Resp BP Pulse Ox O2 Del Method 02/19/23 07:32 36.9 C 86 18 143/95 H 95 Room Air 02/19/23 00:05 36.3 C L 63 14 121/86 97 Room Air PG Care Time/CCT Total # of Minutes Spent Total Time Spent with Patient: Total time spent is greater than 50% in coordination of care (as documented) at patient's floor/unit and/or counseling patient: Coding Level of Care Code 60532 Post Operative Follow-Up Diagnoses History of bowel resection Z90.49
--- NOTE | 2023-02-19 14:44 | Pharmacy Report ---
Pharmacy PN Initial Consult - Date of Service February 19, 2023 - Scope Pharmacy has been consulted to manage parenteral nutrition orders and order appropriate labs. As part of the Nutrition Support Team guidelines, pharmacy will work in conjunction with dietary when determining the patients caloric needs. - Subjective The patient is a 47 year old M admitted on 02/12/23 20:04 for diverticulitis with perforation. - Objective Height: 6 ft 1 in Weight: 106 kg Diet: NPO Intake & Output (Last 24Hrs): Intake & Output 02/17/23 02/18/23 02/19/23 02/20/23 06:59 06:59 06:59 06:59 Intake Total 4026.25 / 4026.25 3457.500 / 3457.500 3564.167 / 3564.167 1498.333 / 1498.333 Output Total 2935 / 2935 2770 / 2770 3590 / 3590 2250 / 2250 Balance 1091.25 / 1091.25 687.500 / 687.500 -25.833 / -25.833 -751.667 / - 751.667 Weight 106 kg 106 kg Laboratory Data (Last 24 Hrs):: 02/19/23 06:14 Sodium 138 Potassium 3.2 L Chloride 105 Carbon Dioxide 26 BUN 3 L Creatinine 0.49 L Glucose 114 H Calcium 8.2 L Phosphorus 2.6 Magnesium 1.8 Nutrition Assessment:: Please refer to the Notes section of the EMR for the most recent call center manager note. - Assessment Diverticulitis with perforation s/p bowel resection and colostomy on 02/12/23. NPO x 7 days and still awaiting return of bowel function. * Patient is at high risk of refeeding syndrome therefore will start with conservative macronutrients: 85g AA, 100g dextrose, 50g lipids * Bag 1 was prepared as PPN. Patient is ordered to have PICC line placed today. Can convert to TPN on subsequent days. * Hypokalemia - replaced with KCL 40 meq IV prior to start of TPN - Plan For day 1 of PN administration, the following will be ordered: Macronutrients Amino acids 85 grams/day Dextrose 100 grams/day Lipids 50 grams/day Micronutrients Combined electrolytes 20 mL - contains 35 mEq Na, 20 meq K, 4.5 mEq Ca, 5 mEq Mg, 35 mEq Cl, 29.5 mEq acetate per 20 mL Sodium phosphate 27 MMol Sodium acetate 30 mEq Potassium chloride 60 mEq Magnesium sulfate 4.06 mEq Multivitamins 10 mL Trace Elements 10 mL Additional additives: folic acid 1 mg, thiamine 100 mg Total volume 2087.2 mL to be infused over 24 hrs will provide 1180 kcal/day Final osmolarity 825 mOsm/L (maximum for PPN is 900 mOsm/L) Labs to be ordered per PN order protocol Pharmacy will follow and adjust parenteral nutrition orders on a daily basis. Thank you.
[2023-02-19] MEDS ORDERED: CLINOLIPID 20% IV FAT EMULSION 250 ML IV SCH (16:00)
[2023-02-19] MEDS ORDERED: PERIPHERAL TPN IV SCH (16:00)
[2023-02-19] MEDS ORDERED: [UNRECOGNIZED DRUG - OTHER] IV SCH (16:00)
[2023-02-19] MEDS: LORazepam 2 MG/1 ML VIAL IV PRN (22:07)
[2023-02-19] MEDS: STOP CLINOLIPID SCH (22:07)
[2023-02-20] MEDS: KETOROLAC 30 MG/ML VIAL IV SCH ×5 (02:14→21:01)
[2023-02-20] MEDS: HYDROmorphone INJ 0.5 MG/0.5 ML SYR IV PRN ×5 (06:19→21:01)
[2023-02-20 07:00] LABS: Basophils # (auto) 0.03 K/uL (0-0.2); Basophils % (auto) 0.5 %; Eosinophils # (auto) 0.14 K/uL (0-0.50); Eosinophils % (auto) 2.4 %; Hematocrit (blood only) 32.2 % (42.0-52.0); Hemoglobin 10.8 g/dl (14.0-18.0); Immature Granulocytes # (auto) 0.03 K/uL (0.01-0.20); Immature Granulocytes % (auto) 0.5 %; Lymphocytes # (auto) 1.16 K/uL (1.2-3.4); Lymphocytes % (auto) 19.9 %; Mean Corpuscular Hemoglobin 30.3 pg (25.0-34.0); Mean Corpuscular Hgb Conc 33.5 g/dL (32.0-36.0); Mean Corpuscular Volume 90.2 fL (80.0-100.0); Mean Platelet Volume 10.9 fL (9.4-12.4); Monocytes # (auto) 0.54 K/uL (0.11-0.59); Monocytes % (auto) 9.2 %; Neutrophils # (auto) 3.94 K/uL (1.40-6.50); Neutrophils % (auto) 67.5 %; Platelet Count 420 K/uL (130-400); RDW Coefficient of Variation 13.2 % (11.5-14.5); RDW Standard Deviation 43.4 fL (36.4-46.3); Red Blood Count 3.57 M/uL (4.70-6.10); White Blood Count 5.84 K/ul (4.8-10.8)
[2023-02-20 07:25] LABS: BUN Creatinine Ratio 11.8 (10-20); Calcium 8.6 mg/dl (8.6-10.3); Creatinine Clr Calc Pharmacy 226.1 ml/min; Est GFR (African American) 149.4 ml/min; Est GFR (Non-African American) 128.9 ml/min; Magnesium 2.1 mg/dl (1.7-2.4); Phosphorus 3.6 mg/dl (2.5-4.9); Potassium 3.4 mmol/L (3.5-5.1)
[2023-02-20] MEDS: ENOXAPARIN INJ 40 MG/0.4 ML SYR SQ SCH (07:54)
--- NOTE | 2023-02-20 12:47 | Surgery Progress Note ---
Date of Service February 20, 2023 Assessment & Plan (1) History of bowel resection: Plan: still awaiting bowel fx return Continue TPN ambulate did have some gas in bag yesterday and abdomen less distended so hopefully output soon Admission and Anticipated Discharge Date Admission Date: February 12, 2023 Subjective pt seen. Some nausea with tube clamped yesterday. Minimal gas in bag. No fevers/chills Physical Exam Physical Exam: alert. nad. Abdomen: Soft, mild distention, no tenderness to palpation Incision with ruy intact and [place] drain Ostomy pink and viable; minimal air in bag Results & Data Vital Signs (Past 12 Hours) Vital Signs Temp Pulse Resp BP Pulse Ox O2 Del Method 02/20/23 07:41 36.9 C 72 16 136/91 95 Room Air
[2023-02-20] MEDS ORDERED: [UNRECOGNIZED DRUG - OTHER] IV SCH (16:00)
[2023-02-20] MEDS ORDERED: CLINOLIPID 20% IV FAT EMULSION 250 ML IV SCH (16:00)
[2023-02-20] MEDS ORDERED: CENTRAL TPN IV SCH (16:00)
[2023-02-20] MEDS: STOP CLINOLIPID SCH (21:49)
[2023-02-20] MEDS: LORazepam 2 MG/1 ML VIAL IV PRN (22:26)
[2023-02-21] MEDS: KETOROLAC 30 MG/ML VIAL IV SCH (02:24)
[2023-02-21] MEDS: HYDROmorphone INJ 0.5 MG/0.5 ML SYR IV PRN ×3 (02:32→16:18)
[2023-02-21 07:11] LABS: BUN Creatinine Ratio 22.6 (10-20); Calcium 8.9 mg/dl (8.6-10.3); Creatinine Clr Calc Pharmacy 184.8 ml/min; Est GFR (African American) 137.9 ml/min; Magnesium 2.4 mg/dl (1.7-2.4); Phosphorus 4.7 mg/dl (2.5-4.9); Potassium 3.7 mmol/L (3.5-5.1)
[2023-02-21] MEDS: ENOXAPARIN INJ 40 MG/0.4 ML SYR SQ SCH (07:55)
[2023-02-21] MEDS ORDERED: D5W AND 1/2NSS 1,000 ML IV SCH (10:15)
--- NOTE | 2023-02-21 11:13 | Surgery Progress Note ---
Date of Service February 21, 2023 Assessment & Plan (1) History of bowel resection: Plan: still awaiting bowel fx return Continue TPN ambulate Slight increase in air in ostomy bag Admission and Anticipated Discharge Date Admission Date: February 12, 2023 Subjective pt seen. Slight increase in air in the ostomy bag. No fevers/chills Physical Exam Physical Exam: alert. nad. Abdomen: Soft, mild distention, no tenderness to palpation Incision with ruy intact and [place] drain Ostomy pink and viable; some air in bag Results & Data Vital Signs (Past 12 Hours) Vital Signs Temp Pulse Resp BP Pulse Ox O2 Del Method 02/21/23 07:09 36.7 C 90 18 134/91 95 Room Air
[2023-02-21] MEDS ORDERED: CLINOLIPID 20% IV FAT EMULSION 250 ML IV SCH (16:00)
[2023-02-21] MEDS ORDERED: CENTRAL TPN IV SCH (16:00)
[2023-02-21] MEDS ORDERED: [UNRECOGNIZED DRUG - OTHER] IV SCH (16:00)
[2023-02-21] MEDS: D5W AND 1/2NSS 1,000 ML IV SCH (16:03)
[2023-02-21] MEDS: HYDROmorphone INJ 1 MG/ML SYRINGE IV PRN (20:45)
[2023-02-21] MEDS: STOP CLINOLIPID SCH (22:00)
[2023-02-21] MEDS: LORazepam 2 MG/1 ML VIAL IV PRN (22:07)
[2023-02-22 07:34] LABS: BUN Creatinine Ratio 29.7 (10-20); Est GFR (African American) 136.1 ml/min; Est GFR (Non-African American) 117.4 ml/min; Magnesium 2.4 mg/dl (1.7-2.4); Phosphorus 3.3 mg/dl (2.5-4.9)
[2023-02-22] MEDS: ENOXAPARIN INJ 40 MG/0.4 ML SYR SQ SCH (08:01)
[2023-02-22] MEDS: HYDROmorphone INJ 1 MG/ML SYRINGE IV PRN ×3 (08:01→20:53)
--- NOTE | 2023-02-22 09:00 | Surgery Progress Note ---
Date of Service February 22, 2023 Assessment & Plan (1) History of bowel resection: Plan: s/p Yecenia's for perforated diverticulitis patient starting to put out some stool in ostomy bag will obtain KUB today, if improved will consider clamp trial. If not may obtain SBFT for further information Continue ambulating Continue TPN until patient is started on a diet EBEN drain is serosang, to remain in place for now as above. overall doing ok. finally some stool in bag. will repeat kub. possible clamping trial vs sbft. Admission and Anticipated Discharge Date Admission Date: February 12, 2023 Subjective Patient doing well. Started putting stool out in bag. Denies nausea/vomiting. Pain controlled Physical Exam Physical Exam: awake/alert, no distress, sitting up in chair Gastrointestinal (Abdomen): Inspection/Auscultation: + abdominal surgical incision (c/d/i) and + abdominal surgical drain present (serosang, minimal output) Percussion/Palpation: abdomen soft ostomy starting to put out brown stool Results & Data Vital Signs (Past 12 Hours) Vital Signs Temp Pulse Resp BP Pulse Ox O2 Del Method 02/22/23 07:30 36.4 C L 82 16 130/95 94 Room Air 02/21/23 21:01 36.6 C 86 16 132/89 94 Room Air PG Care Time/CCT Total # of Minutes Spent Total Time Spent with Patient: Total time spent is greater than 50% in coordination of care (as documented) at patient's floor/unit and/or counseling patient: Coding Level of Care Code 35156 Post Operative Follow-Up Diagnoses History of bowel resection Z90.49
--- NOTE | 2023-02-22 10:21 | XRay Report ---
KUB CLINICAL HISTORY: Recent abdominal surgery. Ileus. FINDINGS: 3 AP, portable, supine abdominal radiographs are compared to study dated 02/17/2023 and corre lated with abdominal CT dated 02/12/2023. An enteric tube is unchanged in position. The tip projects o jerome the gastric fundus. Midline skin clips are in place. An ostomy projects over the left lower quadr ant. Surgical drains are noted in the pelvis. There is mild gaseous distention of the small bowel loo ps without radiographic evidence of high-grade obstruction. Gaseous distention has significantly decr eased as compared to 02/17/2023. No evidence of intraperitoneal free air is seen on these supine images . There are no abnormal abdominal calcifications. Large pelvic phleboliths are unchanged. The skeleta l structures are osteopenic and appear intact. Degenerative and postsurgical change is noted in the l umbar spine. IMPRESSION: 1. Postsurgical changes as above. 2. There is mild gaseous distention of the small bowel loops, likely representing postoperative ileus . The degree of distention has significantly improved as compared to 02/17/2023. Correlate clinically. Electronically signed by: Philippe Ugarte M.D. 02/22/2023 10:19 AM
[2023-02-22] MEDS: HYDROmorphone INJ 0.5 MG/0.5 ML SYR IV PRN (11:57)
[2023-02-22] MEDS: D5W AND 1/2NSS 1,000 ML IV SCH (15:50)
[2023-02-22] MEDS ORDERED: [UNRECOGNIZED DRUG - OTHER] IV SCH (16:00)
[2023-02-22] MEDS ORDERED: CLINOLIPID 20% IV FAT EMULSION 250 ML IV SCH (16:00)
[2023-02-22] MEDS ORDERED: CENTRAL TPN IV SCH (16:00)
[2023-02-22] MEDS: LORazepam 2 MG/1 ML VIAL IV PRN (20:54)
[2023-02-22] MEDS: STOP CLINOLIPID SCH (21:50)
[2023-02-23] MEDS: HYDROmorphone INJ 1 MG/ML SYRINGE IV PRN ×3 (00:42→21:33)
[2023-02-23] MEDS ORDERED: ACETAMINOPHEN 325 MG TAB PO PRN (08:50)
[2023-02-23] MEDS ORDERED: oxyCODONE HCL IR 5 MG TAB (IMMEDIATE RELEASE) PO PRN ×2 (08:50)
--- NOTE | 2023-02-23 08:54 | Surgery Progress Note ---
Date of Service February 23, 2023 Assessment & Plan (1) Diverticulitis of intestine with perforation: Plan: S/p Yecenia's for perforated diverticulitis Patient started having + ostomy function yesterday. NGT was clamped for almost 24 hours and he has been tolerating clears without nausea/vomiting or worsening pain Will d/c NGT today and start on full liquid diet. Likely continue TPN for one more day to ensure diet tolerated EBEN drain is serosang, to remain in place for now Continuing ambulating Doing better. Stoma functioning. Advance his diet to full liquids. We will remove the [place] as well as the EBEN drain tomorrow. If he can tolerate some low residue diet tomorrow we will consider discharge on . Admission and Anticipated Discharge Date Admission Date: February 12, 2023 Subjective Patient doing well. Tolerating NGT clamped and clear liquid diet for almost 24 hours at this point. Pain controlled. Some soreness in throat from NGT. Ostomy with gas/stool in bag. Physical Exam Physical Exam: awake/alert, no distress, sitting up in chair Gastrointestinal (Abdomen): Inspection/Auscultation: + abdominal surgical incision (c/d/i) and + abdominal surgical drain present (serosang, minimal output) Percussion/Palpation: abdomen soft + ostomy viable with gas and some brown stool in bag Results & Data Vital Signs (Past 12 Hours) Vital Signs Temp Pulse Resp BP Pulse Ox O2 Del Method 02/23/23 07:38 36.4 C L 76 16 128/90 96 Room Air 02/22/23 21:44 37.0 C 90 16 123/87 94 Room Air PG Care Time/CCT Total # of Minutes Spent Total Time Spent with Patient: Total time spent is greater than 50% in coordination of care (as documented) at patient's floor/unit and/or counseling patient: Coding Level of Care Code 86062 Post Operative Follow-Up Diagnoses Diverticulitis of intestine with perforation K57.80
[2023-02-23 09:21] LABS: BUN Creatinine Ratio 33.3 (10-20); Creatinine Clr Calc Pharmacy 191.5 ml/min; Est GFR (African American) 139.8 ml/min; Est GFR (Non-African American) 120.6 ml/min; Magnesium 2.2 mg/dl (1.7-2.4); Phosphorus 3.3 mg/dl (2.5-4.9)
[2023-02-23] MEDS: ENOXAPARIN INJ 40 MG/0.4 ML SYR SQ SCH (09:27)
[2023-02-23] MEDS ORDERED: BENZOCAINE/MENTHOL 18 LOZ/1 BOX MT PRN (09:44)
[2023-02-23] MEDS: amLODIPine BESYLATE 5 MG TAB PO SCH (11:25)
[2023-02-23] MEDS ORDERED: CLINOLIPID 20% IV FAT EMULSION 250 ML IV SCH (16:00)
[2023-02-23] MEDS ORDERED: [UNRECOGNIZED DRUG - OTHER] IV SCH (16:00)
[2023-02-23] MEDS ORDERED: CENTRAL TPN IV SCH (16:00)
[2023-02-23] MEDS: LORazepam 2 MG/1 ML VIAL IV PRN (21:32)
[2023-02-23] MEDS: STOP CLINOLIPID SCH (21:45)
[2023-02-24] MEDS: HYDROmorphone INJ 0.5 MG/0.5 ML SYR IV PRN (03:39)
--- NOTE | 2023-02-24 07:47 | Surgery Progress Note ---
Date of Service February 24, 2023 Assessment & Plan (1) Diverticulitis of intestine with perforation: Plan: S/p Yecenia's for perforated diverticulitis Patient continues to have + bowel function. Diet was advanced to fulls yesterday, but he only was given clears. Asked RN to ensure he gets a full liquid tray for bfast and if he does well with this may advance to low fiber for lunch Today may be patient's last bag of TPN E[place] drain and EBEN drain have been removed. Incisions look well Continuing ambulating Pt says he was provided ostomy teaching Hopeful for discharge to home tomorrow As above. Continues to do well. Tolerating liquids. He has no nausea and minimal abdominal pain. He did not feel well on the oxycodone and would like to try something else so we will replace this with tramadol. We will also advance his diet to low residue. If he does well we will plan discharge tomorrow Admission and Anticipated Discharge Date Admission Date: February 12, 2023 Subjective Patient is doing well. Diet was advanced to fulls yesterday, but actually has only received clears. He denies any worsening pain, nausea/vomiting. Ostomy is functioning. Physical Exam Physical Exam: awake/alert, no distress Gastrointestinal (Abdomen): Inspection/Auscultation: + abdominal surgical incision (c/d/i no signs of infection); abdomen not distended Percussion/Palpation: abdomen soft; abdomen nontender ostomy viable with + stool in bag Results & Data Vital Signs (Past 12 Hours) Vital Signs Temp Pulse Resp BP Pulse Ox O2 Del Method 02/24/23 07:30 36.5 C 87 16 125/86 96 Room Air 02/23/23 21:57 36.9 C 86 16 126/85 95 Room Air PG Care Time/CCT Total # of Minutes Spent Total Time Spent with Patient: Total time spent is greater than 50% in coordination of care (as documented) at patient's floor/unit and/or counseling patient: Coding Level of Care Code 29091 Post Operative Follow-Up Diagnoses Diverticulitis of intestine with perforation K57.80
[2023-02-24] MEDS: amLODIPine BESYLATE 5 MG TAB PO SCH (09:24)
[2023-02-24] MEDS: ENOXAPARIN INJ 40 MG/0.4 ML SYR SQ SCH (09:25)
[2023-02-24] MEDS: traMADol HCL 50 MG TABLET PO PRN ×2 (12:30→18:27)
[2023-02-24] MEDS: LORazepam 2 MG/1 ML VIAL IV PRN (22:06)
[2023-02-25] MEDS: HYDROmorphone INJ 1 MG/ML SYRINGE IV PRN (01:46)
[2023-02-25] MEDS: amLODIPine BESYLATE 5 MG TAB PO SCH (08:50)
[2023-02-25] MEDS: ENOXAPARIN INJ 40 MG/0.4 ML SYR SQ SCH (08:50)
[2023-02-25] MEDS: traMADol HCL 50 MG TABLET PO PRN (08:52)
--- NOTE | 2023-02-25 09:34 | Surgery Progress Note ---
Date of Service February 25, 2023 Assessment & Plan (1) Diverticulitis of intestine with perforation: Plan: S/p Yecenia's for perforated diverticulitis Tolerating low fiber diet. Ostomy functioning well Pain controlled on Tramadol Incisions c/d/i, EBEN & elan were removed Planning on one last ostomy teaching today Stable for discharge to home on low fiber diet F/u in clinic next week with RN for staple removal, then will see Dr. Taylor the following week as above. ok for d/c. instructions given. Admission and Anticipated Discharge Date Admission Date: February 12, 2023 Subjective Patient is doing well. Tolerating a low fiber diet. Pain controlled. Ostomy functioning. Physical Exam Physical Exam: awake/alert, no distress Respiratory: normal respiratory effort Gastrointestinal (Abdomen): Inspection/Auscultation: + abdominal surgical incision (midline ruy intact without signs of infection) Percussion/Palpation: abdomen soft; abdomen nontender + ostomy viable with + stool in bag Results & Data Vital Signs (Past 12 Hours) Vital Signs Temp Pulse Resp BP Pulse Ox O2 Del Method 02/25/23 07:38 36.7 C 77 20 114/80 95 Room Air PG Care Time/CCT Total # of Minutes Spent Total Time Spent with Patient: Total time spent is greater than 50% in coordination of care (as documented) at patient's floor/unit and/or counseling patient: Coding Level of Care Code 84659 Post Operative Follow-Up Diagnoses Diverticulitis of intestine with perforation K57.80
--- NOTE | 2023-03-04 13:22 | Discharge Summary ---
Date of Service February 25, 2023 Admission HPI Per Admitting Provider This is a 47yM who presents to the [facility] ED on 02/12/23 with complaints of abdominal pain and constipation. He states his symptoms started yesterday. His last BM was 5 days ago. Pain upwards of an 8/10 throughout the abdomen. He presented to the ER due to ongoing pain and constipation. He initially underwent a KUB which revealed small stool burden and he was given a milk of molasses enema. During that time his WBC returned elevated at [address] scan which showed acute sigmoid diverticulitis with pneumoperitoneum compatible with perforation. No abscess. He denies any fevers/chills, CP/SOB. He had a little bit of emesis in the ER room. No prior abdominal surgical history. Colonoscopy last year without major issues per patient. Last ate a bfast muffin yesterday morning. Principal Diagnosis diverticulitis of intestine with perforation sepsis HTN Discharge Exam awake/alert, no distress Respiratory normal respiratory effort Gastrointestinal (Abdomen) Inspection/Auscultation: + abdominal surgical incision (midline ruy intact without signs of infection); abdomen not distended Percussion/Palpation: abdomen soft; abdomen nontender ostomy viable with + stool in bag Discharge Data Allergies Allergy/AdvReac Type Severity Reaction Status Date / Time No Known Allergies Allergy Verified 03/03/23 14:01 Procedures Performed Operation Date: 02/12/23 11:40 Actual Procedures p Laparascopic converted open Exploratory Laparotomy, Bowel Resection and colostomy(Not Applicable) - Kushal Taylor, Ordered Studies 02/12/23 14:01 CT Abd and Pelvis [CT abd pelvis IV con only] Stat Hospital Course (1) Diverticulitis of intestine with perforation: This is a 47yM who presented to the [facility] ED on 02/12/23 with complaints of abdominal pain. Workup with a CT a/p showed evidence of pneumoperitoneum and concern for perforated diverticulitis. WBC 13 and pt tachycardic to the 120s. The patient was made NPO with IVF and started on pre-op abx. He was booked for the OR with Dr. Taylor where he underwent an exploratory laparotomy, abdominal washout, and michael's procedure. The patient tolerated the procedure well, see op note for full details. He recovered in the PACU and was transferred to the med/surg floor in stable condition. Post op guardado was eventually removed. He completed a course of IV abx during his hospitalization. DVT prophylaxis was ordered. Pain controlled with prn IV and po medications. He had an ileus post op therefore NGT remained in place for a period of time and he was started TPN via a PICC line while NPO. As his ostomy started functioning his diet was slowly advanced from clears to fulls then to eventual low fiber. Ostomy teaching was performed with patient and his . EBEN drain remained serosanguineous throughout his stay and that and his elan were removed prior to discharge. On 02/25/23 the patient was deemed stable for discharge to home. He was instructed to remain on a low fiber diet and follow up in clinic the following week for staple removal. (2) Sepsis: Total Time Total Time Spent Total Time Spent (In Minutes): 15 Discharge Plan Discharge Items Patient Disposition: Home - Self-Care Reason For Visit: DIVERTICULITIS Discharge Diagnosis: perforated diverticulitis Activity: Per Instructions section Lifting: No more than 10 pounds Bathing Comment: may shower; no soaking in tubs/pools Exercise/Sports: Wait until after follow-up appointment Driving/Machine Use: no driving while taking narcotics for pain Non-emergency contact: Surgeon Call non-emergency contact if: you have any medication questions, your symptoms worsen, your pain is not controlled, your pain is concerning for you, you have a fever, your temperature is above 101.5, your wound has increased redness, your wound has increased drainage and your wound pain has increased Follow-up/Referrals: Kushal Taylor DO [Surgeon] - 03/02/23 11:00 am (You have an appointment with Dr. Taylor's Nurse on 03/02/23 at 11:00am for staple removal.) Sorin Santo MD [Primary Care Provider] - Diet: Low Fiber Addtl Attending Provider Instructions: For Ostomy care use 2 3/4" wafer and pouch. Apply 2"adapt ring to surround stoma. Change weekly and as needed Continue on a low fiber diet over the next several weeks Pending Studies at Discharge: Yes Studies:: surgical pathology Stand-Alone Forms: My [facility] [employer], Smoking Cessation Medications and DC Order Prescriptions: Leonardo (DME) walker Misc See Rx Instructions .Route Qty: 1 0RF Rx Instructions: As directed Continued acetaminophen [Tylenol Extra Strength] 500 mg Tablet 1,000 mg PO Q6H PRN (Reason: Pain) Rebif (with albumin) 44 mcg/0.5 mL syringe 0.5 ml SUBCUT [id number] Rx Instructions: ADMINISTER EVERY WEDNESDAY,WEDNESDAY AND WEDNESDAY at bedtime ondansetron HCl 4 mg tablet 4 mg PO TID amlodipine 5 mg tablet 5 mg PO DAILY baclofen 10 mg tablet 10 mg PO UD hydrochlorothiazide 25 mg tablet 25 mg PO DAILY Discontinued tramadol 50 mg tablet 50 mg PO Q6H PRN (Reason: pain, moderate) Qty: 30 0RF No Action tramadol 50 mg tablet 50 mg PO Q6H PRN (Reason: pain, for initial therapy, max 6 tabs/day) Qty: 20 0RF Discharge Orders: Discharge Order (Routine); Ordered 02/25/23 Ordered By: Arlin Hernandez/Other Patient Handouts: Low-Fiber Diet, Colostomy: Managing Your Nutrition Admission Data Admit Date/Time: 02/12/23 20:04 Attending Provider: Kushal Taylor Admit Provider: Kushal Taylor Primary Care Provider: Sorin Santo Other Providers: [facility],Home Health Other Interventions: Discharge Summary Assessment (RN) Last Done: 02/25/23 10:52 Coding Level of Care Code 85483 IN/OBS DISCH 30 MIN/LESS Diagnoses Diverticulitis of intestine with perforation K57.80 Sepsis A41.9
--- NOTE | 2023-03-05 05:38 | Coding Query ---
CODING QUERY To promote full compliance with coding requirements relating to patient care, provider participation is requested in all cases of pre coder uncertainty. Please assist us with the question(s) below: Coding Question(s): Pt admitted with perforated diverticulitis. OR 02/12 for bowel resection & colostomy . H/P documented concern for Peritonitis. Seeking to clarify if the Peritonitis was diagnosed/treated during this Inpatient stay. Please check below & thank you ! RAMIRO Polo [facility] Physician's Response(s): X Peritonits was diagnosed/treated & Present on Admission during this Inpatient Stay Peritoniis was not diagnosed /treated during this Inpatient Stay Cannot clinically correlate if the Peritonitis was treated during this Inpatient Stay Other: Please document: Principal Diagnosis: "that condition established after study, to be chiefly responsible for occasioning the admission of the patient to the hospital for care." Co-Existing Principal Diagnosis: "when two or more diagnoses equally meet the criteria for principal diagnosis as determined by the circumstances of admission, diagnostic work up, and/or therapy provided, and the Alphabetic Index, Tabular List, or another coding guideline does not provide sequencing direction, any one of the diagnoses may be sequenced first." "When the physician has documented what appears to be a current diagnosis in the body of the record, but has not included the diagnosis in the final diagnostic statement, the physician should be asked whether the diagnosis should be added." (Source Coding Clinic 2 QTR90. p3-4) LUIS M
== END 2023-02-25 11:35 | disposition home or self-care (01) | DRG 853 ==
LOC: ED 10:35 → OR 16:50 → 3E 17:12

== ENCOUNTER 2023-04-22 10:29 | Inpatient (IN) ==
--- NOTE | 2023-04-14 13:37 | Anesthesiology Consultation ---
Date of Service April 14, 2023 Assessment & Plan (1) Encounter for pre-operative examination: - COVID screening: Per assessment on 04/14: No known COVID-19 positive contacts or current COVID-19 related symptoms. Travel screen negative. At surgeon discretion if preop Covid testing being done. - S/P Laparoscopic converted open Exploratory Laparotomy, Bowel Resection and colostomy (02/12/23): Grade view 1, MAC#3, ETT 7.[address] [facility] - EKG * EKG performed 10/20/[address] at 119bpm. Possible inferior infarct, age undetermined. ST/TWA, consider lateral ischemia. Prolonged QT. > This EKG was performed during [facility] ER visit in setting of N/V/fever. Discharge diagnosis: flu-like symptoms, vomiting. Prescribed abx/antiemetic. * EKG was reviewed by anesthesiologist prior to 01/2023 Laparoscopic converted open Exploratory Laparotomy, Bowel Resection and colostomy done at [facility] under GA without issue. Will update EKG AM DOS. Chart Review Chart Review: Acceptable Risk for Surgery (pending EKG AM DOS) and Patient NOT seen in Pre Admission Testing History Surgery Operation Date: 04/22/23 08:35 Proposed Procedures p Laparoscopic-Assisted, Possible Open, Colostomy Reversal - Kushal Taylor, DO Height/Weight Height: 6 ft 1 in Weight: 97.522 kg Allergies Allergy/AdvReac Type Severity Reaction Status Date / Time No Known Allergies Allergy Verified 03/31/23 10:09 Medications Home Medications Medication Instructions Recorded Confirmed Last Taken acetaminophen 500 mg tablet 1,000 mg PO Q6H PRN Pain 10/06/20 04/14/23 08/09/22 07:00 (Tylenol Extra Strength) amlodipine 5 mg tablet 5 mg PO QAM 10/20/22 04/14/23 Unknown hydrochlorothiazide 25 mg tablet 25 mg PO QAM 10/20/22 04/14/23 Unknown walker #1 ea 02/24/23 03/10/23 Unknown ofatumumab 20 mg/0.4 mL 20 mg subcut MONTHLY 03/31/23 04/14/23 Unknown subcutaneous pen injector (Kesimpta Pen) Past Medical History Medical History Colostomy in place Diverticular disease Diverticulitis > colon resection + colostomy Finger fracture, left ring finger, entered into PMHX 07/2022 History of COVID-19 09/2020- loss of taste/smell, cold symptoms > recovered at home 10/2020 [facility]- hospitalized 5 days, PNA Hypertension controlled, stable per pt Multiple kidney stones Multiple sclerosis Follows with Dr. Arana ([place]) "In remission" Past Family History Family History Father Family history of diabetes mellitus Other Family history of breast cancer in mother No family history of adverse response to anesthesia Past Surgical History Surgical History History of ankle surgery Right ankle ORIF History of bowel resection Laparascopic converted open Exploratory Laparotomy, Bowel Resection and colostomy(Not Applicable) - Kushal Taylro, DO History of colonoscopy History of lithotripsy x2. 03/31/19 and 04/21/19: LMA#5 History of lumbar surgery L5-S1 decompression fusion 12/17/21: Grade 2 view, MAC 3 History of tooth extraction Hx of vasectomy S/P lumbar fusion Lumbar fusion revision 07/2022 [facility] S/P lumbar fusion 12/2021 [facility] with Dr Lemus Social History Smoking Status: Never smoker Do You Dip or Chew Tobacco: No Hx Alcohol Use: Yes Alcohol type: beer alcohol intake frequency: holidays/special occasions only Hx Substance Use: No substance use type: does not use Lab Results Anesthesia Preop Results Results Anesthesia Widget: WBC 4.61 K/ul (4.8-10.8) L 04/07/23 Hgb 14.4 g/dl (14.0-18.0) 04/07/23 Hct 43.2 % (42.0-52.0) 04/07/23 Plt 304 K/uL (130-400) 04/07/23 Na 141 mmol/L (136-145) 04/07/23 K 3.7 mmol/L (3.5-5.1) 04/07/23 Cl 105 mmol/L (98-107) 04/07/23 CO2 28 mmol/L (21-32) 04/07/23 BUN 19 mg/dl (6-23) 04/07/23 Creat 0.85 mg/dl (0.6-1.4) 04/07/23 Glucose Level 87 mg/dl (70-99(Fasting)) 04/07/23 POC Glucose 110 mg/dl (70-99) H 02/22/23 Testing Electrocardiogram Date: 10/20/22 ST at 119bpm. Possible inferior infarct, age undetermined. ST/TWA, consider lateral ischemia. Prolonged QT. Chest X-Ray Date: 10/20/22 FINDINGS: There are low lung volumes. Cardiac silhouette is borderline enlarged. This is likely due to the low lung volumes and portable technique. No focal lung consolidations to suggest a pneumonia. No evidence for pulmonary edema. Prominence of the perihilar interstitial markings is also likely due to the AP portable technique. IMPRESSION: No focal lung consolidations to suggest a pneumonia. Echocardiogram Date: 11/21/21 EF 55-59% Mild cLVH Normal LV wall motion Grade I diastolic dysfunction No significant valvular disease Borderline enlarged aortic root Stress Test Date: 03/16/22 Pharmacologic Negative for ischemia MPHR 83% EF 65%
[~2023-04-22 10:29] MED LIST changes: -ACETAMINOPHEN 500 MG TAB PO SCH; +CIPROFLOXACIN / D5W 400 MG/200 ML BAG IV SCH; -CeleBREX 200 MG CAP PO SCH; -GABAPENTIN 900 MG DOSE PO SCH; -ceFAZolin 2000MG 2,000 MG/15 ML SYR IV SCH; +metroNIDAZOLE 500 MG/100 ML BAG IV SCH
[2023-04-22] MEDS ORDERED: ePHEDrine sulfate 50 MG/ML AMP IV PRN (11:52)
[2023-04-22] MEDS ORDERED: ONDANSETRON INJ 2 MG/ML 2 ML VIAL IV PRN (11:52)
[2023-04-22] MEDS ORDERED: PROMETHAZINE HCL 6.25 MG in SODIUM CHLORIDE 0.9% 50 ML IV PRN (11:52)
[2023-04-22] MEDS ORDERED: ATROPINE SULFATE 0.1 MG/ML 10ML SYR IV PRN (11:52)
[2023-04-22] MEDS ORDERED: MIDAZOLAM HCL 1 MG/ML 2ML VIAL ONE (13:52)
[2023-04-22] MEDS ORDERED: fentaNYL citrate PF 100 MCG/2 ML VIAL ONE ×2 (13:52→15:02)
[2023-04-22] MEDS ORDERED: ONDANSETRON INJ 2 MG/ML 2 ML VIAL ONE (13:54)
[2023-04-22] MEDS ORDERED: PROPOFOL IV EMULSION 10 MG/ML 20 ML VIAL IV ONE ×2 (13:54→15:06)
[2023-04-22] MEDS ORDERED: LIDOCAINE 2% 2 ML VIAL/AMP(20MG/ML) INFIL ONE (13:54)
[2023-04-22] MEDS ORDERED: GLYCOPYRROLATE 0.2 MG/ML VIAL ONE (13:54)
[2023-04-22] MEDS ORDERED: ROCURONIUM BROMIDE 10 MG/ML 5 ML VIAL IV ONE ×2 (13:54→16:12)
[2023-04-22] MEDS ORDERED: DEXAMETHASONE SOD INJ 4 MG/ML VIAL ONE (13:54)
--- NOTE | 2023-04-22 14:06 | History & Physical Bridge Note ---
Date of Service April 22, 2023 History & Physical Bridge Note I have examined the patient, reviewed the History & Physical and in the interval since the performance of the History & Physical I have noted the following changes of clinical significance: no changes noted
[2023-04-22] MEDS ORDERED: BUPIVACAINE/EPINEPHRINE 0.5% MPF 1:200,000 30 ML VIAL ONE (14:10)
[2023-04-22] MEDS ORDERED: FLUCONAZOLE 200 MG/100 ML BAG IV STA (14:53)
[2023-04-22] MEDS ORDERED: LABETALOL HCL IV 5 MG/ML 20ML IV ONE (15:11)
[2023-04-22] MEDS ORDERED: SUGAMMADEX SODIUM 200 MG/2 ML VIAL IV ONE (16:00)
[2023-04-22] MEDS: fentaNYL citrate PF 100 MCG/2 ML VIAL IV PRN ×4 (17:12→17:35)
--- NOTE | 2023-04-22 17:21 | Operative Report ---
PG Post Operative Report Pre & Post Diagnosis Operation Date: 04/22/23 11:55 Pre-Op Diagnosis: Colostomy Post-Op Diagnosis: Colostomy; adhesions I identified the patient and participated in the time-out.: Yes Procedure Operation Date: 04/22/23 11:55 Actual Procedures p Laparoscopic-Assisted, Colostomy Reversal(Not Applicable); enterolysis - Kushal Taylor DO Surgeon Kushal Taylor DO Student Services Dean Dr. Bee MD; Mel Rojo Estimated Blood Loss 50 Findings Consistent with Post-Op Diagnosis Specimens none Description of Procedure After informed consent was obtained the patient was taken to the operating room and placed in supine position. After successful intubation a Childers catheter was placed sterilely. The colostomy was closed using 2-0 silk in running fashion. The entire abdomen was shaved. The abdomen and perineum were sterilely prepped and draped in usual fashion. I began with an upper midline incision with an 11 blade scalpel. This was carried down through the soft tissues using cautery. The anterior fascia was opened using cautery and two #0 Vicryl stay sutures were placed. Peritoneum was entered using blunt finger penetration. A 12 mm Reed trocar was placed and the abdomen was insufflated to 20 mmHg. We inserted the camera. There were rather extensive adhesions in the lower abdomen worse on the left side. I was able to place a right lower quadrant 5 mm port and eventually right mid abdominal 5 mm port. I began by taking down the adhesions using blunt dissection and sharp scissor lysis and small amounts of harmonic scalpel. The adhesions involved both omentum and small bowel. Once I had the adhesions down I was able to identify the colostomy. It did look healthy. I took down adhesions on the undersurface of the stoma itself in preparation for reversal. I then identified the rectal stump identified by the Prolene sutures. I was able to free this up using sharp scissor lysis as well. We then made an elliptical incision around the closed colostomy. I used cautery and traction countertraction to free up the stoma from the skin and soft tissue. Eventually we were able to completely free it up and delivered it out of the wound. I placed a clamp several centimeters proximal to the thickened area where the stoma had been matured and cut off the distal end. We used sizers an estimated 28 mm to be the appropriate size. 2-0 silk was used to hand sew a pursestring. The anvil of the 28 mm stapler was advanced into the end of the bowel and secured using the pursestring. This was then reduced back into the abdomen. At this point we changed our gloves. I closed the fascial defect of the colostomy site using 0 PDS in running fashion. We then reinsufflated the abdomen. The anvil laid over the pelvic brim and would reach the rectal stump without difficulty. We used a red rubber catheter and betadine solution to irrigate out the rectal stump. The handle of a 28 mm stapler was then brought in through the rectal stump. We brought out the spike through the side of the rectosigmoid just proximal to the staple line. The anvil was connected to the handle. They were secured together and fired creating a circular end to side anastomosis. This is a functional end-to-end anastomosis. Both donut rings were intact. We insufflated the anastomosis under water with a rigid sigmoidoscope and it was in fact airtight. There was adequate hemostasis. We thoroughly irrigated the abdomen. A 10 flat Asim-Palma drain was brought into the pelvis and brought out through one of the port sites and secured to the skin using 0 Vicryl. All the trocars were removed and the abdomen desufflated. The fascia of the camera port was closed using 0 Vicryl in [id number] fashion. All the wounds were irrigated and closed using skin ruy. A Buckeye drain was used under the ruy at the stoma site. Silver dressings were applied followed by gauze and tape. The patient was awakened extubated and transferred recovery in stable condition. Dr. Lawrence Merida was present for the entire surgery. She was instrumental in assisting in all aspects of the reversal. I attest to the content of the Intraoperative Record and any orders documented therein. Any exceptions are noted below.
--- NOTE | 2023-04-22 17:49 | Anesthesiology Progress Note ---
Date of Service April 22, 2023 Anesthesia Post Procedure Vital Signs Vital Signs: Temp Pulse Pulse Resp BP BP Pulse Ox 04/22/23 17:40 84 14 147/97 H 100 04/22/23 17:30 84 14 138/100 99 04/22/23 17:20 84 18 146/114 H 100 04/22/23 17:10 88 16 157/109 H 100 04/22/23 16:59 98.2 F 88 16 166/107 H 100 04/22/23 11:06 97.9 F 96 H 20 145/100 H 98 O2 Del Method O2 Flow Rate 04/22/23 17:40 Room Air 04/22/23 17:30 Room Air 04/22/23 17:20 Oxymask 4 04/22/23 17:10 Oxymask 10 04/22/23 16:59 Oxymask 10 04/22/23 11:06 Room Air Pain Intensity Abdomen: Pain Intensity: 6 Transfer of Care Handoff Completed per policy Notes Mental Status: alert / awake / arousable and participated in evaluation Patient Amnestic to Procedure: Yes Nausea / Vomiting: adequately controlled Pain: adequately controlled Airway Patency, RR, SpO2: stable & adequate BP & HR: stable & adequate Hydration State: stable & adequate Anesthetic Complications: no major complications apparent and Pt Satisfied with anesthetic care
[2023-04-22] MEDS ORDERED: MoRPHine SULFATE 4 MG/ML 1 ML CARP\\VIAL IV PRN (18:24)
[2023-04-22] MEDS ORDERED: MoRPHine SULFATE 2 MG/ML CARP IV PRN (18:24)
[2023-04-22] MEDS: ACETAMINOPHEN 1,000 MG/100 ML VIAL IV SCH (18:40)
[2023-04-22] MEDS: ONDANSETRON INJ 2 MG/ML 2 ML VIAL IV PRN (18:45)
[2023-04-22] MEDS: LACTATED RINGER'S 1,000 ML IV SCH (18:50)
[2023-04-22] MEDS: cefOXitin 2,000 MG in DEXTROSE 5% 50 ML IV SCH (19:24)
[2023-04-22] MEDS: HYDROmorphone INJ 1 MG/ML SYRINGE IV PRN ×2 (19:24→23:01)
[2023-04-23] MEDS: cefOXitin 2,000 MG in DEXTROSE 5% 50 ML IV SCH ×4 (01:56→18:26)
[2023-04-23] MEDS: ACETAMINOPHEN 1,000 MG/100 ML VIAL IV SCH ×3 (02:38→17:44)
[2023-04-23] MEDS: LACTATED RINGER'S 1,000 ML IV SCH ×3 (03:34→18:26)
[2023-04-23] MEDS: HYDROmorphone INJ 1 MG/ML SYRINGE IV PRN ×6 (03:35→21:47)
[2023-04-23 06:41] LABS: Basophils # (auto) 0.01 K/uL (0-0.2); Basophils % (auto) 0.1 %; Hematocrit (blood only) 38.5 % (42.0-52.0); Hemoglobin 13.3 g/dl (14.0-18.0); Immature Granulocytes # (auto) 0.02 K/uL (0.01-0.20); Immature Granulocytes % (auto) 0.2 %; Lymphocytes # (auto) 1.01 K/uL (1.2-3.4); Lymphocytes % (auto) 10.6 %; Mean Corpuscular Hemoglobin 30.1 pg (25.0-34.0); Mean Corpuscular Hgb Conc 34.5 g/dL (32.0-36.0); Mean Corpuscular Volume 87.1 fL (80.0-100.0); Mean Platelet Volume 11.5 fL (9.4-12.4); Monocytes # (auto) 0.99 K/uL (0.11-0.59); Monocytes % (auto) 10.4 %; Neutrophils # (auto) 7.46 K/uL (1.40-6.50); Neutrophils % (auto) 78.7 %; Platelet Count 264 K/uL (130-400); RDW Coefficient of Variation 13.2 % (11.5-14.5); RDW Standard Deviation 41.7 fL (36.4-46.3); Red Blood Count 4.42 M/uL (4.70-6.10); White Blood Count 9.49 K/ul (4.8-10.8)
[2023-04-23 07:01] LABS: BUN Creatinine Ratio 14.7 (10-20); Creatinine Clr Calc Pharmacy 151.5 ml/min; Est GFR (African American) 127.5 ml/min; Potassium 3.8 mmol/L (3.5-5.1)
[2023-04-23] MEDS: amLODIPine BESYLATE 5 MG TAB PO SCH (08:32)
--- NOTE | 2023-04-23 08:44 | Surgery Progress Note ---
Date of Service April 23, 2023 Assessment & Plan (1) History of colostomy reversal: Plan: POD#1 colostomy take down WBC 9.4, Hbg 13. Vitals stable Will d/c guardado catheter today Continue current pain regimen. Continue EBEN drain On sips/chips, if feeling well consider clears later today Start lovenox OOB as tolerates Dr. Renee covering the wknd As above. Doing as expected. Pain reasonably controlled. No nausea. We will slowly increase activity. Await for for some improved bowel function prior to initiating a diet. Admission and Anticipated Discharge Date Admission Date: April 22, 2023 Subjective Patient doing fairly well. Reports some abdominal discomfort, but manageable. He had some nausea with morphine yesterday and has since been changed to dilaudid and feeling better. Feeling thirsty. Physical Exam Physical Exam: awake/alert Respiratory: normal respiratory effort Gastrointestinal (Abdomen): Percussion/Palpation: + abdomen tender (expected casey incisional discomfort to palpation) and abdomen soft EBEN drain serosang. Results & Data Vital Signs (Past 12 Hours) Vital Signs Temp Pulse Pulse Resp BP Pulse Ox O2 Del Method 04/23/23 07:37 36 C L 76 16 128/82 96 Room Air 04/23/23 03:27 37.0 C 91 H 18 105/72 97 Room Air 04/23/23 00:03 36.9 C 102 H 18 109/71 96 Room Air 04/22/23 21:10 37.0 C 100 H 18 122/70 95 Room Air PG Care Time/CCT Total # of Minutes Spent Total Time Spent with Patient: Total time spent is greater than 50% in coordination of care (as documented) at patient's floor/unit and/or counseling patient: Coding Level of Care Code 58782 Post Operative Follow-Up Diagnoses History of colostomy reversal Z98.890
[2023-04-23] MEDS: ENOXAPARIN INJ 40 MG/0.4 ML SYR SQ SCH (11:16)
[2023-04-23] MEDS: ONDANSETRON INJ 2 MG/ML 2 ML VIAL IV PRN (20:20)
[2023-04-23] MEDS: LORazepam 2 MG/1 ML VIAL IV PRN (22:59)
[2023-04-24] MEDS: cefOXitin 2,000 MG in DEXTROSE 5% 50 ML IV SCH ×4 (00:28→18:36)
[2023-04-24] MEDS: ACETAMINOPHEN 1,000 MG/100 ML VIAL IV SCH ×3 (03:24→18:11)
[2023-04-24] MEDS: HYDROmorphone INJ 1 MG/ML SYRINGE IV PRN ×7 (03:24→22:01)
[2023-04-24] MEDS: LACTATED RINGER'S 1,000 ML IV SCH ×2 (03:26→13:53)
[2023-04-24 06:44] LABS: BUN Creatinine Ratio 11.9 (10-20); Calcium 8.8 mg/dl (8.6-10.3); Creatinine Clr Calc Pharmacy 169.6 ml/min; Est GFR (African American) 133.6 ml/min; Est GFR (Non-African American) 115.2 ml/min; Potassium 3.3 mmol/L (3.5-5.1)
[2023-04-24 07:00] LABS: Basophils # (auto) 0.02 K/uL (0-0.2); Basophils % (auto) 0.3 %; Eosinophils # (auto) 0.04 K/uL (0-0.50); Eosinophils % (auto) 0.6 %; Hematocrit (blood only) 35.9 % (42.0-52.0); Immature Granulocytes # (auto) 0.01 K/uL (0.01-0.20); Immature Granulocytes % (auto) 0.1 %; Lymphocytes # (auto) 1.39 K/uL (1.2-3.4); Lymphocytes % (auto) 20.4 %; Mean Corpuscular Hemoglobin 29.8 pg (25.0-34.0); Mean Corpuscular Hgb Conc 33.4 g/dL (32.0-36.0); Mean Corpuscular Volume 89.1 fL (80.0-100.0); Mean Platelet Volume 11.1 fL (9.4-12.4); Monocytes # (auto) 0.98 K/uL (0.11-0.59); Monocytes % (auto) 14.4 %; Neutrophils # (auto) 4.37 K/uL (1.40-6.50); Neutrophils % (auto) 64.2 %; Platelet Count 231 K/uL (130-400); RDW Coefficient of Variation 13.3 % (11.5-14.5); RDW Standard Deviation 43.8 fL (36.4-46.3); Red Blood Count 4.03 M/uL (4.70-6.10); White Blood Count 6.81 K/ul (4.8-10.8)
[2023-04-24] MEDS: amLODIPine BESYLATE 5 MG TAB PO SCH (07:37)
[2023-04-24] MEDS: ENOXAPARIN INJ 40 MG/0.4 ML SYR SQ SCH (07:37)
--- NOTE | 2023-04-24 10:39 | Surgery Progress Note ---
Date of Service April 24, 2023 Assessment & Plan (1) History of colostomy reversal: Plan: We will switch his fluids to D5 half with KCl and replace his K with 40 mill equivalents p.o. Encourage ambulation I-S We will trial clear liquids this morning and await return of bowel function He is on Lovenox for DVT prophylaxis Pain control regiment Admission and Anticipated Discharge Date Admission Date: April 22, 2023 Subjective Patient seen and examined. Pain controlled. Afebrile. He is not passing any flatus. Denies any emesis. Physical Exam Constitutional: WD/WN, vitals as above Gastrointestinal (Abdomen): Soft, appropriately tender, EBEN drain with serosanguineous output Results & Data Vital Signs (Past 12 Hours) Vital Signs Temp Pulse Resp BP Pulse Ox O2 Del Method O2 Del Method 04/24/23 08:26 37.1 C 87 16 134/83 92 Room Air 04/24/23 08:06 Room Air PG Care Time/CCT Total # of Minutes Spent Total Time Spent with Patient: Total time spent is greater than 50% in coordination of care (as documented) at patient's floor/unit and/or counseling patient: Coding Level of Care Code 10540 Post Operative Follow-Up Diagnoses History of colostomy reversal Z98.890
[2023-04-24] MEDS ORDERED: POTASSIUM CHLORIDE CRTAB 20 MEQ TABCR PO STA (10:42)
[2023-04-24] MEDS ORDERED: POTASSIUM CHLORIDE / WTR 10 MEQ/100 ML PLCT IV SCH (10:45)
[2023-04-24] MEDS: D5W AND 1/2NSS + 20MEQ KCL 20 MEQ/1,000 ML BAG IV SCH ×2 (13:08→21:56)
[2023-04-24] MEDS: LORazepam 2 MG/1 ML VIAL IV PRN (21:55)
[2023-04-24] MEDS: ONDANSETRON INJ 2 MG/ML 2 ML VIAL IV PRN (21:56)
--- NOTE | 2023-04-24 22:02 | Electrocardiogram Report ---
Test Reason : Blood Pressure : / mmHG Vent. Rate : 086 BPM Atrial Rate : 086 BPM P-R Int : 168 ms QRS Dur : 092 ms QT Int : 358 ms P-R-T Axes : 047 051 012 degrees QTc Int : 428 ms Normal sinus rhythm Abnormal ECG When compared with ECG of 20-OCT-2022 18:36, No significant change Confirmed by Nick Fuller ([id number]) on 04/24/2023 10:02:05 PM Referred By: Kushal Taylor Confirmed By:Nick Fuller
[2023-04-25] MEDS: cefOXitin 2,000 MG in DEXTROSE 5% 50 ML IV SCH ×4 (00:27→18:34)
[2023-04-25] MEDS: HYDROmorphone INJ 1 MG/ML SYRINGE IV PRN ×6 (00:30→19:38)
[2023-04-25] MEDS: ACETAMINOPHEN 1,000 MG/100 ML VIAL IV SCH ×2 (02:39→10:33)
[2023-04-25] MEDS: D5W AND 1/2NSS + 20MEQ KCL 20 MEQ/1,000 ML BAG IV SCH ×2 (05:54→15:38)
[2023-04-25 08:04] LABS: Basophils # (auto) 0.02 K/uL (0-0.2); Basophils % (auto) 0.4 %; Eosinophils # (auto) 0.14 K/uL (0-0.50); Eosinophils % (auto) 2.7 %; Hematocrit (blood only) 35.1 % (42.0-52.0); Hemoglobin 11.9 g/dl (14.0-18.0); Immature Granulocytes # (auto) 0.01 K/uL (0.01-0.20); Immature Granulocytes % (auto) 0.2 %; Lymphocytes # (auto) 1.33 K/uL (1.2-3.4); Lymphocytes % (auto) 25.7 %; Mean Corpuscular Hemoglobin 30.1 pg (25.0-34.0); Mean Corpuscular Hgb Conc 33.9 g/dL (32.0-36.0); Mean Corpuscular Volume 88.9 fL (80.0-100.0); Mean Platelet Volume 10.3 fL (9.4-12.4); Monocytes # (auto) 0.71 K/uL (0.11-0.59); Monocytes % (auto) 13.7 %; Neutrophils # (auto) 2.97 K/uL (1.40-6.50); Neutrophils % (auto) 57.3 %; Platelet Count 219 K/uL (130-400); RDW Coefficient of Variation 13.2 % (11.5-14.5); RDW Standard Deviation 42.8 fL (36.4-46.3); Red Blood Count 3.95 M/uL (4.70-6.10); White Blood Count 5.18 K/ul (4.8-10.8)
[2023-04-25] MEDS: amLODIPine BESYLATE 5 MG TAB PO SCH (08:25)
[2023-04-25] MEDS: ENOXAPARIN INJ 40 MG/0.4 ML SYR SQ SCH (08:25)
[2023-04-25 08:32] LABS: BUN Creatinine Ratio 7.9 (10-20); Calcium 8.9 mg/dl (8.6-10.3); Creatinine Clr Calc Pharmacy 180.3 ml/min; Est GFR (Non-African American) 118.2 ml/min; Potassium 3.6 mmol/L (3.5-5.1)
[2023-04-25] MEDS ORDERED: POTASSIUM CHLORIDE CRTAB 20 MEQ TABCR PO STA (08:51)
--- NOTE | 2023-04-25 09:35 | Surgery Progress Note ---
Date of Service April 25, 2023 Assessment & Plan (1) History of colostomy reversal: Plan: Decrease his IV fluids today Replace potassium p.o. Switch to p.o. pain medication Encourage ambulation I-S Advance to full liquids He is on Lovenox for DVT prophylaxis Admission and Anticipated Discharge Date Admission Date: April 22, 2023 Subjective Patient seen and examined. He started passing some flatus. Denies any nausea or vomiting. Tolerated clears. His pain is controlled. Physical Exam Constitutional: WD/WN, vitals as above Gastrointestinal (Abdomen): Soft, appropriately tender, EBEN drain with serosanguineous output Acticoat dressings in place, incisions without erythema or drainage, Evert in the left side incision Results & Data Vital Signs (Past 12 Hours) Vital Signs Temp Pulse Resp BP Pulse Ox O2 Del Method 04/25/23 08:24 36.5 C 77 16 129/88 95 Room Air 04/24/23 22:31 37 C 85 16 138/81 94 Room Air PG Care Time/CCT Total # of Minutes Spent Total Time Spent with Patient: Total time spent is greater than 50% in coordination of care (as documented) at patient's floor/unit and/or counseling patient: Coding Level of Care Code 30786 Post Operative Follow-Up Diagnoses History of colostomy reversal Z98.890
[2023-04-25] MEDS: oxyCODONE HCL IR 5 MG TAB (IMMEDIATE RELEASE) PO PRN (12:50)
[2023-04-25] MEDS: LORazepam 2 MG/1 ML VIAL IV PRN (22:20)
[2023-04-26] MEDS: cefOXitin 2,000 MG in DEXTROSE 5% 50 ML IV SCH ×3 (00:08→12:41)
[2023-04-26] MEDS: HYDROmorphone INJ 1 MG/ML SYRINGE IV PRN (00:09)
[2023-04-26] MEDS: D5W AND 1/2NSS + 20MEQ KCL 20 MEQ/1,000 ML BAG IV SCH ×2 (04:30→18:17)
[2023-04-26] MEDS: HYDROmorphone INJ 0.5 MG/0.5 ML SYR IV PRN ×6 (06:13→22:06)
[2023-04-26 07:16] LABS: Basophils # (auto) 0.04 K/uL (0-0.2); Basophils % (auto) 0.8 %; Eosinophils % (auto) 3.9 %; Hematocrit (blood only) 36.5 % (42.0-52.0); Hemoglobin 12.3 g/dl (14.0-18.0); Immature Granulocytes # (auto) 0.01 K/uL (0.01-0.20); Immature Granulocytes % (auto) 0.2 %; Lymphocytes # (auto) 1.18 K/uL (1.2-3.4); Mean Corpuscular Hemoglobin 29.7 pg (25.0-34.0); Mean Corpuscular Hgb Conc 33.7 g/dL (32.0-36.0); Mean Corpuscular Volume 88.2 fL (80.0-100.0); Mean Platelet Volume 10.5 fL (9.4-12.4); Monocytes # (auto) 0.59 K/uL (0.11-0.59); Monocytes % (auto) 11.5 %; Neutrophils # (auto) 3.11 K/uL (1.40-6.50); Neutrophils % (auto) 60.6 %; Platelet Count 243 K/uL (130-400); RDW Coefficient of Variation 13.2 % (11.5-14.5); RDW Standard Deviation 42.8 fL (36.4-46.3); Red Blood Count 4.14 M/uL (4.70-6.10); White Blood Count 5.13 K/ul (4.8-10.8)
[2023-04-26 07:34] LABS: BUN Creatinine Ratio 4.9 (10-20); Calcium 9.1 mg/dl (8.6-10.3); Creatinine Clr Calc Pharmacy 138.5 ml/min; Est GFR (African American) 122.9 ml/min; Potassium 3.8 mmol/L (3.5-5.1)
[2023-04-26] MEDS: amLODIPine BESYLATE 5 MG TAB PO SCH (07:35)
[2023-04-26] MEDS: ENOXAPARIN INJ 40 MG/0.4 ML SYR SQ SCH (07:35)
--- NOTE | 2023-04-26 10:28 | Surgery Progress Note ---
Date of Service April 26, 2023 Assessment & Plan (1) History of colostomy reversal: Plan: Postoperative day #4 Doing as expected Awaiting full return of bowel function before discharge. I will advance him to a low residue diet although cautioned him to go very slowly. Ready to be discharged after return of bowel function Admission and Anticipated Discharge Date Admission Date: April 22, 2023 Subjective Patient seen. Doing pretty well. Tolerating full liquids although he is tired of liquids. He denies any nausea. He is passing large amount of flatus but no bowel movement yet. Physical Exam Physical Exam: Alert. No acute distress His incisions all look good. EBEN with scant amount of serosanguineous drainage Results & Data Vital Signs (Past 12 Hours) Vital Signs Temp Pulse Pulse Resp BP BP Pulse Ox 04/26/23 07:41 36.8 C 84 16 152/100 H 93 04/26/23 00:10 37.0 C 88 16 137/88 97 O2 Del Method 04/26/23 07:41 Room Air 04/26/23 00:10 Room Air PG Care Time/CCT Total # of Minutes Spent Total Time Spent with Patient: Total time spent is greater than 50% in coordination of care (as documented) at patient's floor/unit and/or counseling patient: Coding Level of Care Code 50912 Post Operative Follow-Up Diagnoses History of colostomy reversal Z98.890
[2023-04-26] MEDS: LORazepam 2 MG/1 ML VIAL IV PRN (22:06)
[2023-04-27] MEDS: HYDROmorphone INJ 1 MG/ML SYRINGE IV PRN ×2 (02:58→15:18)
[2023-04-27] MEDS: D5W AND 1/2NSS + 20MEQ KCL 20 MEQ/1,000 ML BAG IV SCH (06:27)
[2023-04-27] MEDS: ENOXAPARIN INJ 40 MG/0.4 ML SYR SQ SCH (07:45)
[2023-04-27] MEDS: amLODIPine BESYLATE 5 MG TAB PO SCH (07:45)
--- NOTE | 2023-04-27 08:33 | Surgery Progress Note ---
Date of Service April 27, 2023 Assessment & Plan (1) History of colostomy reversal: Plan: Doing well. We can have well as IV fluids. He is ready for discharge as soon as he has a bowel movement. Discharge planning Admission and Anticipated Discharge Date Admission Date: April 22, 2023 Subjective Patient seen. Feeling fine. Tolerating a low residue diet. He is starting to get cramps as though he will have a bowel movement although he has not had one yet. He is passing gas. He has no nausea. Physical Exam Physical Exam: Alert. No acute distress Abdomen is soft. EBEN with serous output. SPECT incisional tenderness. No sign of infection Results & Data Vital Signs (Past 12 Hours) Vital Signs Temp Pulse Resp BP Pulse Ox O2 Del Method 04/27/23 07:25 37.0 C 77 16 147/97 H 96 Room Air PG Care Time/CCT Total # of Minutes Spent Total Time Spent with Patient: Total time spent is greater than 50% in coordination of care (as documented) at patient's floor/unit and/or counseling patient: Coding Level of Care Code 08647 Post Operative Follow-Up Diagnoses History of colostomy reversal Z98.890
[2023-04-27] MEDS: HYDROmorphone INJ 0.5 MG/0.5 ML SYR IV PRN ×2 (10:14→21:46)
[2023-04-27] MEDS: ONDANSETRON INJ 2 MG/ML 2 ML VIAL IV PRN (22:44)
[2023-04-27] MEDS: LORazepam 2 MG/1 ML VIAL IV PRN (22:44)
[2023-04-28] MEDS: HYDROmorphone INJ 0.5 MG/0.5 ML SYR IV PRN ×2 (03:43→10:13)
[2023-04-28] MEDS: amLODIPine BESYLATE 5 MG TAB PO SCH (08:05)
[2023-04-28] MEDS: ENOXAPARIN INJ 40 MG/0.4 ML SYR SQ SCH (08:05)
[2023-04-28] MEDS: oxyCODONE HCL IR 5 MG TAB (IMMEDIATE RELEASE) PO PRN (11:38)
[2023-04-28] MEDS: HYDROmorphone INJ 1 MG/ML SYRINGE IV PRN (12:11)
--- NOTE | 2023-04-30 20:41 | Discharge Summary ---
Date of Service April 28, 2023 Principal Diagnosis history of colostomy reversal Discharge Exam awake/alert, no distress Respiratory normal respiratory effort Gastrointestinal (Abdomen) Inspection/Auscultation: + abdominal surgical incision (c/d/i) Percussion/Palpation: abdomen soft Discharge Data Allergies Allergy/AdvReac Type Severity Reaction Status Date / Time No Known Allergies Allergy Verified 04/22/23 10:58 Procedures Performed Operation Date: 04/22/23 11:55 Actual Procedures p Laparoscopic-Assisted, Colostomy Reversal(Not Applicable) - Kushal Taylor, Hospital Course (1) History of colostomy reversal: This is a 47yM who presented to the [facility] on 04/22/23 for a scheduled colostomy reversal with Dr. Taylor. The patient tolerated the procedure well, see op note for full details. The patient recovered in the PACU and was transferred to the med/surg floor in stable condition. POD#1 patient started on sips/chips. DVT prophylaxis started. Pain controlled on prn IV pain regimen. He remained on a course of abx throughout his hospitalization. Childers catheter removed. POD#2 patient was started on clear liquids without issues. Activity encouraged. POD#3 he started passing some flatus. Diet advanced to full liquids. POD#4-#5 he was started on a low fiber diet. He was passing flatus, but still awaiting a BM. His pain was controlled on his pain regimen. On 04/29 the patient had a BM and was deemed stable for discharge to home on a low fiber diet. His EBEN drain and elan drain were removed prior to his disposition. Total Time Total Time Spent Total Time Spent (In Minutes): 15 Discharge Plan Discharge Items Patient Disposition: Home - Self-Care Reason For Visit: Colostomy, Diverticulitis Discharge Diagnosis: colostomy reversal Activity: Per Instructions section Lifting: No more than 10 pounds Bathing Comment: may shower; no soaking in tubs/pools x 2 weeks Exercise/Sports: Wait until after follow-up appointment Driving/Machine Use: no driving while on narcotics for pain Non-emergency contact: Surgeon Call non-emergency contact if: you have any medication questions, your symptoms worsen, your pain is not controlled, you have a fever, your temperature is above 101.5, your wound has increased redness, your wound has increased drainage and your wound pain has increased Follow-up/Referrals: Kushal Taylor DO [Surgeon] - 05/11/23 11:45 am (Please call to schedule a follow up in clinic within 2 weeks) Sorin Santo MD [Primary Care Provider] - Diet: Low Fiber Addtl Attending Provider Instructions: You may keep a dry dressing over the site where your surgical drain was with dry gauze and tape until it has healed and is no longer draining. Change dressing daily and as needed. Continue on a low fiber diet over the next couple of weeks Pending Studies at Discharge: Yes Stand-Alone Forms: My [facility], Pain - Opioid Pain Management, Smoking Cessation Medications and DC Order Prescriptions: New oxycodone-acetaminophen 5-325 mg tablet 1 tab PO Q8H PRN (Reason: pain) Qty: 20 0RF Continued Kesimpta Pen 20 mg/0.4 mL pen injector 20 mg subcut MONTHLY acetaminophen [Tylenol Extra Strength] 500 mg Tablet 1,000 mg PO Q6H PRN (Reason: Pain) (DME) [facility] See Rx Instructions .Route Qty: 1 0RF Rx Instructions: As directed amlodipine 5 mg tablet 5 mg PO QAM hydrochlorothiazide 25 mg tablet 25 mg PO QAM Discharge Orders: Discharge Order (Routine); Ordered 04/28/23 Ordered By: Kushal Hernandez/Other Patient Handouts: Low-Fiber Diet Admission Data Admit Date/Time: 04/22/23 17:03 Attending Provider: Kushal Taylor Admit Provider: Kushal Taylor Primary Care Provider: Sorin Santo Other Interventions: Discharge Summary Assessment (RN) Last Done: 04/28/23 11:56 Coding Level of Care Code 74521 IN/OBS DISCH 30 MIN/LESS Diagnoses History of colostomy reversal Z98.890
== END 2023-04-28 12:39 | disposition home or self-care (01) | DRG 331 ==
LOC: ASU 10:29 → 3E 17:03